=== PATIENT | female | born 1985 | race Caucasian/White ===

== ENCOUNTER → 2018-08-02 | Outpatient (CLI) | payer BC, SELFPAY ==
[2018-08-01 16:14] VITALS: BMI 28.0
== END | disposition home or self-care (01) ==
LOC: LABSPEC 08:35
PROVIDERS: Referring Provider Obstetrics & Gynecology; Visit Provider Obstetrics & Gynecology
DX: Z12.4 Encounter for screening for malignant neoplasm of cervix (principal)
CPT/HCPCS: 87624; 88175; G0145

== ENCOUNTER → 2018-10-19 08:53 | Outpatient (CLI) | payer BC, SELFPAY ==
[2018-10-19 08:06] VITALS: BMI 28.0
[2018-10-19 09:47] LABS: Absolute Lymphocyte Count 0.67 X10^3/uL (0.83-4.51); Absolute Neutrophil Count 7.1 X10^3/uL (2.0-7.7); Basophil# 0.02 X10^3/uL; Basophil% 0.2 % (0-1); Eosinophil# 0.07 X10^3/uL; Eosinophils% 0.8 % (0-5); Hemoglobin 10.8 g/dL (12.0-15.0); Lymphocyte # 0.67 X10^3/ul (4.0); Mean Corp Hgb Conc 33.8 g/dL (32-36); Mean Corpuscular Hgb 32.3 pg (27.0-32.0); Mean Corpuscular Volume 95.8 fL (81-99); Mean Platelet Vol. 10.3 fl (6.2-12.0); Monocyte# 0.39 X10^3/uL; Monocyte% 4.7 % (0-10); NRBC Flagged by Analyzer 0 % (0-5); Neutrophil # 7.11 X10^3/uL (2.7-7.7); Neutrophil % 85.3 % (47-70); Platelet Count 233 K/mm3 (150-450); RBC Distribution Width CV 13.5 % (11.6-14.6); RBC Distribution Width SD 47.3 fl (35.1-43.9); Red Blood Count 3.34 M/mm3 (4.2-5.4); White Blood Count 8.3 K/mm3 (4.4-11.0)
[2018-10-19 09:59] LABS: Glucose Challenge Gest 1H 50g 109 mg/dL (70-140)
== END ==
PROVIDERS: Referring Provider Obstetrics & Gynecology; Visit Provider Obstetrics & Gynecology
DX: Z34.90 Encounter for supervision of normal pregnancy, unspecified, unspecified trimester (principal)
CPT/HCPCS: 36415; 82950; 85025

== ENCOUNTER → 2018-11-16 09:01 | Outpatient (CLI) | payer BC, SELFPAY ==
[2018-11-16 08:57] VITALS: BMI 28.0
[2018-11-16 09:20] LABS: Absolute Neutrophil Count 6.4 X10^3/uL (2.0-7.7); Basophil# 0.01 X10^3/uL; Basophil% 0.1 % (0-1); Eosinophil# 0.06 X10^3/uL; Eosinophils% 0.8 % (0-5); Hematocrit 30.7 % (37-47); Hemoglobin 10.1 g/dL (12.0-15.0); Mean Corp Hgb Conc 32.9 g/dL (32-36); Mean Corpuscular Hgb 31.4 pg (27.0-32.0); Mean Corpuscular Volume 95.3 fL (81-99); Mean Platelet Vol. 9.9 fl (6.2-12.0); Monocyte# 0.41 X10^3/uL; Monocyte% 5.3 % (0-10); NRBC Flagged by Analyzer 0 % (0-5); Neutrophil # 6.43 X10^3/uL (2.7-7.7); Neutrophil % 82.9 % (47-70); Platelet Count 207 K/mm3 (150-450); RBC Distribution Width CV 14.1 % (11.6-14.6); RBC Distribution Width SD 48.4 fl (35.1-43.9); Red Blood Count 3.22 M/mm3 (4.2-5.4); White Blood Count 7.8 K/mm3 (4.4-11.0)
[2018-11-16 09:46] LABS: T4 Free Direct 0.83 ng/dL (0.76-1.46); Thyroid Stim Hormone (TSH) 1.46 uIU/mL (0.358-3.74)
== END ==
PROVIDERS: Referring Provider Obstetrics & Gynecology; Visit Provider Obstetrics & Gynecology
DX: O99.019 Anemia complicating pregnancy, unspecified trimester (principal); E01.0 Iodine-deficiency related diffuse (endemic) goiter; D64.9 Anemia, unspecified; Z3A.00 Weeks of gestation of pregnancy not specified
CPT/HCPCS: 36415; 84439; 84443; 85025

== ENCOUNTER → 2018-11-21 14:31 | Outpatient (CLI) | payer BC, SELFPAY ==
[2018-11-16 08:57] VITALS: BMI 28.0
--- NOTE | 2018-11-21 14:34 | US_ITS ---
STUDY: THYROID ULTRASOUND REASON FOR EXAM: Female, 33 years old. Thyromegaly TECHNIQUE: Ultrasound evaluation of the thyroid was performed with real-time and static alanis-scale imaging. COMPARISON: None. FINDINGS: RIGHT LOBE: The right lobe of the thyroid gland measures 4.8 x 1.9 x 1.7 cm. There is a homogeneous echotexture. There are no demonstrated solid, cystic or complex lesions. LEFT LOBE: The left lobe of the thyroid gland measures 5.1 x 1.9 x 1.7 cm. There is a homogeneous echotexture. There are no demonstrated solid, cystic or complex lesions. ISTHMUS: The isthmus measures 2 mm. The regional lymph nodes are normal. US/Thyroid IMPRESSION: Normal ultrasound examination of the thyroid. Electronically Signed: Zachariah Worthy MD at 19:49 EDT , Service support ,
== END ==
PROVIDERS: Referring Provider Obstetrics & Gynecology; Visit Provider Obstetrics & Gynecology
DX: E01.0 Iodine-deficiency related diffuse (endemic) goiter (principal)
CPT/HCPCS: 76536

== ENCOUNTER → 2018-12-28 15:25 | Outpatient (CLI) | payer BC, SELFPAY ==
[2018-12-28 15:11] VITALS: BMI 28.0
[2018-12-28 15:52] LABS: ROM Internal Control Test YES-OK TO RESULT pt. (Internal QC); ROM Patient Test Negative (Negative)
== END ==
PROVIDERS: Visit Provider Nurse Practitioner Women's Health
DX: N89.8 Other specified noninflammatory disorders of vagina (principal)
CPT/HCPCS: 84112

== ENCOUNTER → 2018-12-28 16:50 | Outpatient (CLI) | payer BC, SELFPAY ==
[2018-12-28 15:11] VITALS: BMI 28.0
== END ==
PROVIDERS: Referring Provider Nurse Practitioner Women's Health; Visit Provider Nurse Practitioner Women's Health
DX: Z34.93 Encounter for supervision of normal pregnancy, unspecified, third trimester (principal); N89.8 Other specified noninflammatory disorders of vagina; Z3A.36 36 weeks gestation of pregnancy
CPT/HCPCS: 84112; 87081

== ENCOUNTER → 2019-01-04 15:59 | Outpatient (CLI) | payer BC, SELFPAY ==
[2019-01-04 15:36] VITALS: BMI 28.0
[2019-01-04 17:03] LABS: Absolute Lymphocyte Count 0.86 X10^3/uL (0.83-4.51); Absolute Neutrophil Count 7.1 X10^3/uL (2.0-7.7); Basophil# 0.01 X10^3/uL; Basophil% 0.1 % (0-1); Eosinophil# 0.06 X10^3/uL; Eosinophils% 0.7 % (0-5); Hematocrit 33.7 % (37-47); Hemoglobin 11.1 g/dL (12.0-15.0); Lymphocyte # 0.86 X10^3/ul (4.0); Lymphocyte % 9.8 % (19-41); Mean Corp Hgb Conc 32.9 g/dL (32-36); Mean Corpuscular Hgb 30.9 pg (27.0-32.0); Mean Corpuscular Volume 93.9 fL (81-99); Mean Platelet Vol. 10.7 fl (6.2-12.0); Monocyte# 0.63 X10^3/uL; Monocyte% 7.2 % (0-10); NRBC Flagged by Analyzer 0 % (0-5); Neutrophil # 7.07 X10^3/uL (2.7-7.7); Neutrophil % 80.7 % (47-70); Platelet Count 242 K/mm3 (150-450); RBC Distribution Width CV 15.3 % (11.6-14.6); Red Blood Count 3.59 M/mm3 (4.2-5.4); White Blood Count 8.8 K/mm3 (4.4-11.0)
== END ==
PROVIDERS: Referring Provider Obstetrics & Gynecology; Visit Provider Obstetrics & Gynecology
DX: O99.019 Anemia complicating pregnancy, unspecified trimester (principal); D64.9 Anemia, unspecified; Z3A.00 Weeks of gestation of pregnancy not specified
CPT/HCPCS: 36415; 85025

== ENCOUNTER 2019-01-18 18:20 | Inpatient (IN) | payer BC, SELFPAY ==
[2018-11-16 08:57] VITALS: BMI 28.0
[2019-01-18 14:55] VITALS: BMI 28.0
[2019-01-18 18:54] VITALS: BMI 36.1
[2019-01-18] MEDS: Lactated Ringers 1,000 ML 50 ML IV (19:15)
[2019-01-18 19:39] LABS: Absolute Lymphocyte Count 0.87 X10^3/uL (0.83-4.51); Absolute Neutrophil Count 7.5 X10^3/uL (2.0-7.7); Basophil# 0.03 X10^3/uL; Basophil% 0.3 % (0-1); Eosinophils% 1.1 % (0-5); Hematocrit 35.4 % (37-47); Lymphocyte # 0.87 X10^3/ul (4.0); Lymphocyte % 9.5 % (19-41); Mean Corp Hgb Conc 33.9 g/dL (32-36); Mean Corpuscular Hgb 31.5 pg (27.0-32.0); Mean Corpuscular Volume 92.9 fL (81-99); Mean Platelet Vol. 10.7 fl (6.2-12.0); Monocyte# 0.54 X10^3/uL; Monocyte% 5.9 % (0-10); NRBC Flagged by Analyzer 0.2 % (0-5); Neutrophil # 7.54 X10^3/uL (2.7-7.7); Neutrophil % 81.9 % (47-70); Platelet Count 219 K/mm3 (150-450); RBC Distribution Width SD 51.6 fl (35.1-43.9); Red Blood Count 3.81 M/mm3 (4.2-5.4); White Blood Count 9.2 K/mm3 (4.4-11.0)
[2019-01-18] MEDS: Mag Hydrox/Al Hydrox/Simeth 30 ML UDC PO (20:15)
[2019-01-18] MEDS: Lactated Ringers 500 ML 999 ML IV (20:15)
--- NOTE | 2019-01-18 20:58 | HP.PCM_ITS ---
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 anatomy us reviewed. echo- nl (8) Supervision of normal Status: Acute Qualifiers: Normal : normal first Trimester: second trimester Qualified Code(s): Z34.02 - Encounter for supervision of normal first , second trimester Comment: PRR CONSUELO 01/22/19 girl (name secret) Duong History Date of Admission: 01/19/19 Final CONSUELO: 01/20/19 Gestational age: 39 Weeks and 6 Days History of this : This is a 33 year-old, at 39 weeks gestational age sent in active labor at 45 cm. Patient has had an a complicated by shortened cervical length but has had no labor.. Surgical History: Surgical History (Last Reviewed 01/18/19 @ 14:55 by Elba Rincon) D&E H/O LEEP Z98.890 H/O dilation and curettage Z98.890 x1 H/O toe surgery Z98.890 History of wisdom tooth extraction, class II edentulism K08.492 Allergies doxycycline Allergy (Mild, Verified 01/18/19 14:54) Other Home Medications: Home Medications vitamin#30 30 mg iron-10 mg iron-folic acid 1 mg-omg3 capsule 1 cap PO DAILY cap 08/01/18 ferrous sulfate 325 mg (65 mg iron) tablet 325 mg PO BID 11/30/18 Smoking Status: Former smoker Alcohol: None Number of Fetus(es): 1 NST - FHR Rate Baby A Baseline: 130 Variability:: Moderate Accelerations:: 15 x 15 Decelerations:: None NST Reactive:: Yes FHR Category:: Category I Uterine Activity:: q 2-4 History Past Pregnancies: Past Pregnancies trisomy 18 medical termination sab x 2 Labs: Mom's Labs & Results 01/18/19 01/18/19 19:20 19:20 WBC 9.2 RBC 3.81 L Hgb 12.0 Hct 35.4 L MCV 92.9 MCH 31.5 MCHC 33.9 RDW Std Deviation 51.6 H RDW Coeff of Nishant 15.0 H Plt Count 219 MPV 10.7 Immature Gran % (Auto) 1.300 H Neut % (Auto) 81.9 H Lymph % (Auto) 9.5 L [place] % (Auto) 5.9 Eos % (Auto) 1.1 Baso % (Auto) 0.3 Absolute Neuts (auto) 7.5 Absolute Lymphs (auto) 0.87 Nucleated RBC % 0.2 Blood Type AB POSITIVE Antibody Screen NEGATIVE Course Did the patient receive Yes care? Labs Blood Type: AB RH: POSITIVE RPR/VDRL/Syphilis Nonreactive Rubella status Immune HbSAg Negative Date Done: 06/29/18 Chlamydia Negative Gonorrhea Negative HIV/AIDS Non-Reactive Group B Strep: Negative Current Obstetrical History Gestational Diabetes No Incompetent Cervix No: shortened cervix Infertility Yes IUGR No Macrosomia No Hypertension/Pre-eclampsia No Placenta Previa/Abruption No PTL/PROM No Uterine anomaly No Oligohydramnios No Polyhydramnios No Multiple gestation No Past Medical History Asthma No Diabetes No Hypertension No Heart disease No Mitral valve prolapse No Neurologic/Seizure disorder/ No Migraines Kidney disease No Liver disease No Varicosities No Clotting disorders/Hx of DVT No Thyroid Dysfunction No Other medical diseases No Psychiatric disorders No Major trauma No Abnormal PAP smear Yes Sleep apnea No Mammogram in the last 2 years Yes Social History Marital Status: Alleged father Kiel Hx Smoking No Smoking Status Former smoker Expected Delivery Method: Spontaneous Vaginal Review of Systems Constitutional: Denies: Fever, Malaise Eyes: Denies: Blurred vision, Vision Change HEENT: Denies: Head Aches, Visual Changes Cardiovascular: Denies: Chest Pain, Palpitations Respiratory: Denies: Cough, Shortness of Breath, Wheezing Gastrointestinal: Denies: Abdominal Pain, Diarrhea, Nausea, Vomiting Genitourinary: Denies: Dysuria, Hematuria Musculoskeletal: Denies: Joint Pain, Muscle pain Skin: Denies: Lesions, Rash Neurological: Denies: Blurred vision, Focal weakness, Headaches Psychiatric: Denies: Anxiety, Depression Endocrine: Denies: Heat/ Cold Intolerance Hematologic/ Lymphatic: Denies: Easy Bruising, Easy Bleeding Physical Exam General: Alert, Cooperative, No apparent distress HEENT: Atraumatic, Normocephalic. Negative for: Thyromegaly, Lymphadenopathy Cardiovascular: Regular rate Lungs: Normal air movement Abdomen: Soft, Non Tender, Gravid Neurological: Deep Tendon Reflexes 2+/4 and Symmetrical, Neuro grossly intact. Negative for: Clonus CAFETERIA MONITOR: Normal external genitalia. 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 epidural prn gbs neg IAL
[2019-01-18] MEDS: fentaNYL-bupivacaine (epidural) 100 ML BAG EPIDURAL (21:25)
[2019-01-19] MEDS: Mag Hydrox/Al Hydrox/Simeth 30 ML UDC PO (00:45)
[2019-01-19] MEDS: Lactated Ringers 1,000 ML 200 ML IV (01:20)
[2019-01-19] MEDS: Oxytocin 30 units/NS 500 ml 30 UNITS/500 ML IV.SOLN 334 UNITS IV (02:39)
--- NOTE | 2019-01-19 03:04 | OP.PCM_ITS ---
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 anatomy us reviewed. echo- nl (8) Supervision of normal Status: Acute Qualifiers: Normal : normal first Trimester: second trimester Qualified Code(s): Z34.02 - Encounter for supervision of normal first , second trimester Comment: PRR CONSUELO 01/22/19 girl (name secret) Duong Vaginal Delivery Maternal Presentation: Active Labor ial 39w6d Method of Induction: Pitocin Amniotic Membrane Rupture Type: Artificial Amniotic Fluid Description: Clear Final CONSUELO: 01/20/19 Gestational age: 39 Weeks and 6 Days Date of Procedure: 01/19/19 Pre-Operative Diagnosis: ial Post-Operative Diagnosis: same Surgery/ Procedure Performed: Spontaneous Vaginal Delivery Type of Anesthesia: Epidural Description of Procedure: Patient began pushing and delivered the head in the AFUA presentation. The head was delivered atraumatically and a loose nuchal cord ?1 was identified and easily reduced over the 's head. The anterior and posterior shoulders delivered without complication followed by the rest of the and the was placed on the maternal abdomen. Delayed cord clamping was employed for approximately 60 seconds. Cord was clamped and cut and gentle traction was applied to the cord and the placenta delivered spontaneously immediately following it was noted to be intact with three-vessel cord. The perineum and vagina were inspected and noted to have a second-degree perineal laceration that was repaired in the usual fashion with 3-0 Vicryl Rapide. EBL was 300 cc. Patient and tolerated delivery well. Presentation: AFUA Placental Delivery Description: Spontaneous Nuchal Cord Compression: With compression Cord Entanglement: Around neck x 1, loose Drain: Nixon to straight drain Estimated Blood Loss: 300 Infant A gender: Female Episiotomy Description: None Laceration: Perineal Extension/lac, 2nd degree Medications given after delivery: IV Pitocin Complications: None Multi Select Codes - Urinary/Genital Urinary/Genital CPT Codes: 75821 Vaginal Delivery [facility]
--- NOTE | 2019-01-19 03:40 | DCINST_ITS ---
Discharge Diet: No Restrictions Discharge Activity: Return to Normal Activity, May not drive while taking narcotic pain medications., May Shower May resume sexual activity in: 4-6 weeks Call your doctor if your incision/area has: Continuous Slow Oozing, Sudden Increased Bleeding, Increased Pain/ Swelling, Increased Redness, Foul Smelling Discharge Additional Instructions: If you experience any of the following, contact your healthcare provider. * Bleeding that soaks a pad every hour for 2 hours * Fever 100.4 or higher * Unrelieved incision or abdominal pain * Swelling, redness, discharge or bleeding from your incision or episiotomy site * Your incision begins to separate * Problems urinating (including inability to urinate or burning while urinating). * Visual changes * Severe headache * Flu-like symptoms * Pain or redness in one of both of your breasts * Pain, warmth, tenderness or swelling in your legs, especially the calf area * Frequent nausea and vomiting * Symptoms of depression or anxiety If you experience any of the following, call 911 or go to the nearest Emergency Room. * Chest pain * Problems breathing * Seizure activity * Partial or complete paralysis of a body part, slurred speech, weakness or drooping of the face, or a sudden inability to walk or hold your balance Allergies/Adverse Reactions: Allergies doxycycline Allergy (Mild, Verified 01/18/19 14:54) Other Medications to take at Discharge vitamin#30 30 mg iron-10 mg iron-folic acid 1 mg-omg3 capsule 1 cap PO DAILY cap 08/01/18 ferrous sulfate 325 mg (65 mg iron) tablet 325 mg PO BID 11/30/18 Please Follow Up With: Delores García MD - [phone] When: Call to make an appointment with your doctor in 6 weeks. If you had elevated Blood pressure or 4th degree laceration you will need to be seen in 2 weeks. Primary Care Physician: Care Physician,No Primary [Primary Care Provider] - Test Results: Test results from this visit will be discussed in further detail at your follow- up appointment, if applicable.
--- NOTE | 2019-01-19 03:40 | PCM.DCVAG ---
Discharge Diet: No Restrictions Discharge Activity: Return to Normal Activity, May not drive while taking narcotic pain medications., May Shower May resume sexual activity in: 4-6 weeks Call your doctor if your incision/area has: Continuous Slow Oozing, Sudden Increased Bleeding, Increased Pain/ Swelling, Increased Redness, Foul Smelling Discharge Additional Instructions: If you experience any of the following, contact your healthcare provider. Bleeding that soaks a pad every hour for 2 hours Fever 100.4 or higher Unrelieved incision or abdominal pain Swelling, redness, discharge or bleeding from your incision or episiotomy site Your incision begins to separate Problems urinating (including inability to urinate or burning while urinating). Visual changes Severe headache Flu-like symptoms Pain or redness in one of both of your breasts Pain, warmth, tenderness or swelling in your legs, especially the calf area Frequent nausea and vomiting Symptoms of depression or anxiety If you experience any of the following, call 911 or go to the nearest Emergency Room. Chest pain Problems breathing Seizure activity Partial or complete paralysis of a body part, slurred speech, weakness or drooping of the face, or a sudden inability to walk or hold your balance Allergies/Adverse Reactions: Allergies doxycycline Allergy (Mild, Verified 01/18/19 14:54) Other Medications to take at Discharge vitamin#30 30 mg iron-10 mg iron-folic acid 1 mg-omg3 capsule 1 cap PO DAILY cap 08/01/18 ferrous sulfate 325 mg (65 mg iron) tablet 325 mg PO BID 11/30/18 Please Follow Up With: eDlores García MD - [phone] When: Call to make an appointment with your doctor in 6 weeks. If you had elevated Blood pressure or 4th degree laceration you will need to be seen in 2 weeks. Primary Care Physician: Care Physician,No Primary [Primary Care Provider] - Test Results: Test results from this visit will be discussed in further detail at your follow-up appointment, if applicable.
[2019-01-19] MEDS: Naproxen 250 MG Tablet 500 MG PO ×2 (05:20→15:09)
[2019-01-19 10:00] VITALS: BP 136/76; PULSE 105; RESP 16; TEMP 36.8
[2019-01-19 14:00] VITALS: BP 121/75; PULSE 103; RESP 12; TEMP 36.5
[2019-01-19] MEDS: Prenatal Vits Tablet 1 TABLET PO (15:09)
[2019-01-19] MEDS: Dibucaine 30 GM Tube 1 APPLIC TOPICAL (15:23)
[2019-01-19] MEDS: Hydrocortisone 2.5% Crm 1 APPLIC TOPICAL (15:25)
[2019-01-19 18:07] VITALS: BP 113/79; PULSE 100; RESP 16; TEMP 36.8
[2019-01-19 20:00] VITALS: BP 113/59; PULSE 107; RESP 18; TEMP 36.7
[2019-01-19] MEDS: Acetaminophen 500 MG Tablet 1000 MG PO (20:55)
[2019-01-20] VITALS: BP 104/59; PULSE 91; RESP 18; TEMP 36.7
[2019-01-20 04:00] VITALS: BP 117/66; PULSE 109; RESP 16; TEMP 36.3
[2019-01-20] MEDS: Naproxen 250 MG Tablet 500 MG PO ×2 (07:42→18:42)
[2019-01-20 07:45] VITALS: BP 112/63; PULSE 78; RESP 16; TEMP 36.6
--- NOTE | 2019-01-20 12:02 | PCM.PN.OB ---
Subjective: doing well no complaints pain controlled no CP SOB N V ambulating well tolerating po lochia moderate, going well - Physical Exam Vitals/I&O's: Vital Signs Temp Pulse Resp BP 97.9 F 78 16 112/63 01/20/19 07:45 01/20/19 07:45 01/20/19 07:45 01/20/19 07:45 Oxygen Delivery Method Room Air Weight: 204 lb Body Mass Index (BMI) 36.1 Intake and Output for Last 24 Hours 01/18/19 01/19/19 01/20/19 23:59 23:59 23:59 Intake Total 549.5 / 549.5 1683.34 / 1683.34 Output Total 300 / 300 1250 / 1250 Balance 249.5 / 249.5 433.34 / 433.34 General: Alert, Oriented x3 Current Medications Acetaminophen (Tylenol) 1,000 mg PO Q8H PRN PRN PRN Reason: Pain Score 1-3/10 Last Admin: 01/19/19 20:55 Dose: 1,000 mg Documented by: Bisacodyl (Dulcolax) 10 mg RECTAL UD PRN PRN Reason: If no BM Dibucaine (Dibucaine) 1 applic TOPICAL TID PRN PRN; Protocol PRN Reason: Discomfort Last Admin: 01/19/19 15:23 Dose: 1 applicatio Documented by: Ferrous Sulfate (Ferrous Sulfate) 325 mg PO BIDCM MARGARET Last Admin: 01/19/19 19:02 Dose: Not Given Documented by: Hydrocortisone (Hytone) 1 applic TOPICAL TID PRN PRN; Protocol PRN Reason: Discomfort Last Admin: 01/19/19 15:25 Dose: 1 applicatio Documented by: Methylergonovine Maleate (Methergine) 0.2 mg IM X1 PRN PRN Reason: Excess bleeding/uterine atony Naproxen (Naprosyn) 500 mg PO Q8H PRN PRN PRN Reason: Pain Score 1-3/10 Last Admin: 01/20/19 07:42 Dose: 500 mg Documented by: Ondansetron HCl (Zofran) 4 mg IV Q4H PRN PRN PRN Reason: Nausea Oxycodone HCl (Oxyir) 5 - 10 mg PO Q4H PRN PRN PRN Reason: Pain Score 4-10/10 Multivit/Folic Acid/Iron (Prenatabs Fa) 1 tablet PO DAILY@1200 MARGARET Last Admin: 01/19/19 15:09 Dose: 1 tablet Documented by: Senna/Docusate Sodium (Senokot-S, Coco-Colace) 1 - 2 tablet PO DAILY PRN PRN PRN Reason: Constipation Simethicone (Mylicon) 80 mg PO PCHS PRN PRN Reason: Indigestion/Stomach pain Sodium Chloride () 5 - 15 ml IV UD PRN PRN Reason: SALINE FLUSH Medical Necessity - Tobacco Use Smoking Status: Former smoker Assessment/Plan All Active Problems (Last Reviewed 01/18/19 @ 14:55 by Elba Rincon) Thyromegaly (Acute) Influenza vaccination given (Acute) Anemia during (Acute) Cervical shortening affecting (Acute) 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 routine post delivery care 2. breast feeding- support given 3. rh positive 4. rubella immune
[2019-01-20] MEDS: Prenatal Vits Tablet 1 TABLET PO (12:43)
[2019-01-20 14:00] VITALS: PULSE 87; RESP 16; TEMP 36.7
[2019-01-20 20:29] VITALS: BP 108/56; PULSE 99; RESP 18; TEMP 36.4
[2019-01-21 01:30] VITALS: BP 121/63; PULSE 97; RESP 16; TEMP 36.6
[2019-01-21 08:28] VITALS: BP 110/65; PULSE 93; RESP 16; TEMP 36.5; O2SAT 99
--- NOTE | 2019-01-21 10:26 | PCM.PN.OB ---
Subjective: doing well no complaints pain controlled no CP SOB N V ambulating well tolerating po lochia moderate, going well - Physical Exam Vitals/I&O's: Vital Signs Temp Pulse Resp BP Pulse Ox 97.7 F L 93 16 110/65 99 01/21/19 08:28 01/21/19 08:28 01/21/19 08:28 01/21/19 08:28 01/21/19 08:28 Oxygen Delivery Method Room Air Weight: 204 lb Body Mass Index (BMI) 36.1 Intake and Output for Last 24 Hours 01/19/19 01/20/19 01/21/19 23:59 23:59 23:59 Intake Total 1683.34 / 1683.34 Output Total 1250 / 1250 Balance 433.34 / 433.34 General: Alert, Oriented x3 Current Medications Acetaminophen (Tylenol) 1,000 mg PO Q8H PRN PRN PRN Reason: Pain Score 1-3/10 Last Admin: 01/19/19 20:55 Dose: 1,000 mg Documented by: Bisacodyl (Dulcolax) 10 mg RECTAL UD PRN PRN Reason: If no BM Dibucaine (Dibucaine) 1 applic TOPICAL TID PRN PRN; Protocol PRN Reason: Discomfort Last Admin: 01/19/19 15:23 Dose: 1 applicatio Documented by: Ferrous Sulfate (Ferrous Sulfate) 325 mg PO BIDCM MARGARET Last Admin: 01/20/19 18:42 Dose: Not Given Documented by: Hydrocortisone (Hytone) 1 applic TOPICAL TID PRN PRN; Protocol PRN Reason: Discomfort Last Admin: 01/19/19 15:25 Dose: 1 applicatio Documented by: Methylergonovine Maleate (Methergine) 0.2 mg IM X1 PRN PRN Reason: Excess bleeding/uterine atony Naproxen (Naprosyn) 500 mg PO Q8H PRN PRN PRN Reason: Pain Score 1-3/10 Last Admin: 01/20/19 18:42 Dose: 500 mg Documented by: Ondansetron HCl (Zofran) 4 mg IV Q4H PRN PRN PRN Reason: Nausea Oxycodone HCl (Oxyir) 5 - 10 mg PO Q4H PRN PRN PRN Reason: Pain Score 4-10/10 Multivit/Folic Acid/Iron (Prenatabs Fa) 1 tablet PO DAILY@1200 MARGARET Last Admin: 01/20/19 12:43 Dose: 1 tablet Documented by: Senna/Docusate Sodium (Senokot-S, Coco-Colace) 1 - 2 tablet PO DAILY PRN PRN PRN Reason: Constipation Simethicone (Mylicon) 80 mg PO PCHS PRN PRN Reason: Indigestion/Stomach pain Sodium Chloride () 5 - 15 ml IV UD PRN PRN Reason: SALINE FLUSH Medical Necessity - Tobacco Use Smoking Status: Former smoker Assessment/Plan All Active Problems (Last Reviewed 01/18/19 @ 14:55 by Elba Rincon) Thyromegaly (Acute) Influenza vaccination given (Acute) Anemia during (Acute) Cervical shortening affecting (Acute) 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 routine post delivery care 2. breast feeding- support given 3. rh positive 4. rubella immune
== END 2019-01-21 11:50 | disposition home or self-care (01) | DRG 807 ==
PROVIDERS: Admitting Provider Obstetrics & Gynecology; Referring Provider Obstetrics & Gynecology; Visit Provider Obstetrics & Gynecology
DX: O26.873 Cervical shortening, third trimester (principal); O70.1 Second degree perineal laceration during delivery; O99.02 Anemia complicating childbirth; D64.9 Anemia, unspecified; O69.81X0 Labor and delivery complicated by cord around neck, without compression, not applicable or unspecified; Z87.891 Personal history of nicotine dependence; Z3A.39 39 weeks gestation of pregnancy; Z37.0 Single live birth
CPT/HCPCS: 59025; 59050; 85025; 86850; 86900; 86901; 99218; J7120; G0378

== ENCOUNTER → 2019-02-26 12:42 | Outpatient (CLI) | payer BC, SELFPAY ==
[2019-02-26 12:34] VITALS: BMI 36.1
[2019-02-26 13:26] LABS: T4 Free Direct 0.87 ng/dL (0.76-1.46); Thyroid Stim Hormone (TSH) 1.36 uIU/mL (0.358-3.74)
== END ==
PROVIDERS: Referring Provider Obstetrics & Gynecology; Visit Provider Obstetrics & Gynecology
DX: O99.019 Anemia complicating pregnancy, unspecified trimester (principal); D64.9 Anemia, unspecified; O99.280 Endocrine, nutritional and metabolic diseases complicating pregnancy, unspecified trimester; E01.0 Iodine-deficiency related diffuse (endemic) goiter; Z3A.00 Weeks of gestation of pregnancy not specified
CPT/HCPCS: 36415; 84439; 84443

== ENCOUNTER → 2020-03-05 15:23 | Outpatient (CLI) | payer OTHER, SELFPAY ==
[2020-03-05 14:56] VITALS: BMI 30.4
[2020-03-05 16:36] LABS: T4 Free Direct 0.99 ng/dL (0.76-1.46); Thyroid Stim Hormone (TSH) 1.79 uIU/mL (0.358-3.74)
[2020-03-11 15:33] LABS: HPV APTIMA, High Risk Negative (Negative)
== END ==
PROVIDERS: Referring Provider Nurse Practitioner Women's Health; Visit Provider Nurse Practitioner Women's Health
DX: Z12.4 Encounter for screening for malignant neoplasm of cervix (principal); E01.0 Iodine-deficiency related diffuse (endemic) goiter; Z13.29 Encounter for screening for other suspected endocrine disorder
CPT/HCPCS: 36415; 84439; 84443; 87624; 88175; G0145

== ENCOUNTER → 2020-03-13 09:20 | Outpatient (CLI) | payer OTHER, SELFPAY ==
[2020-03-05 14:56] VITALS: BMI 30.4
--- NOTE | 2020-03-13 09:22 | US_ITS ---
STUDY: THYROID ULTRASOUND REASON FOR EXAM: Female, 34 years old. ENLARGED THYROID TECHNIQUE: Ultrasound evaluation of the thyroid was performed with real-time and static alanis-scale imaging. COMPARISON: None. FINDINGS: RIGHT LOBE: The right lobe of the thyroid gland measures 4.7 cm x 1.4 cm x 1.7 cm. There is a homogeneous echotexture. There are no demonstrated solid, cystic or complex lesions. LEFT LOBE: The left lobe of the thyroid gland is slightly enlarged and measures 5.4 cm x 1.9 cm x 1.4 cm. There is a homogeneous echotexture. There is a 3 mm x 3 mm x 3 mm hypoechoic well-defined solid nodule in the midpole of the left lobe. ISTHMUS: The isthmus measures 1.2 mm. The regional lymph nodes are normal. US/Thyroid IMPRESSION: 3 mm x 3 mm x 3 mm hypoechoic solid nodule in the midpole of the left lobe. Mild enlargement of the left lobe of the thyroid. Electronically Signed: Josias Gutierrez MD at 11:16 EST , Service support ,
[2020-03-13 10:50] LABS: Absolute Lymphocyte Count 0.76 X10^3/uL (0.83-4.51); Absolute Neutrophil Count 2.8 X10^3/uL (2.0-7.7); Basophil# 0.05 X10^3/uL; Basophil% 1.3 % (0-1); Eosinophil# 0.07 X10^3/uL; Eosinophils% 1.8 % (0-5); Hematocrit 41.9 % (37-47); Hemoglobin 13.8 g/dL (12.0-15.0); Lymphocyte # 0.76 X10^3/ul (4.0); Lymphocyte % 19.2 % (19-41); Mean Corp Hgb Conc 32.9 g/dL (32-36); Mean Corpuscular Hgb 31.2 pg (27.0-32.0); Mean Corpuscular Volume 94.8 fL (81-99); Mean Platelet Vol. 10.7 fl (6.2-12.0); Monocyte# 0.25 X10^3/uL; Monocyte% 6.3 % (0-10); NRBC Flagged by Analyzer 0 % (0-5); Neutrophil # 2.81 X10^3/uL (2.7-7.7); Neutrophil % 71.1 % (47-70); Platelet Count 283 K/mm3 (150-450); RBC Distribution Width SD 45.6 fl (35.1-43.9); Red Blood Count 4.42 M/mm3 (4.2-5.4)
[2020-03-13 11:20] LABS: Cholesterol 250 mg/dL (200); Glucose 90 mg/dL (74-106); High Density Lipoprotein 65 mg/dL; Triglycerides 76 mg/dL; Very Low Density Lipoprotein 15 mg/dL (5-40); Vitamin D,25 Hydroxy 11.6 ng/mL
== END ==
PROVIDERS: Referring Provider Nurse Practitioner Women's Health; Visit Provider Nurse Practitioner Women's Health
DX: Z00.00 Encounter for general adult medical examination without abnormal findings (principal); E01.0 Iodine-deficiency related diffuse (endemic) goiter; Z13.1 Encounter for screening for diabetes mellitus; Z13.220 Encounter for screening for lipoid disorders; Z13.21 Encounter for screening for nutritional disorder
CPT/HCPCS: 36415; 76536; 80061; 82306; 82947; 85025

== ENCOUNTER → 2020-04-02 15:43 | Outpatient (CLI) | payer OTHER, SELFPAY ==
[2020-04-02 15:14] VITALS: BMI 30.2
[2020-04-02 17:14] LABS: ALB/GLOB Ratio 1.1 RATIO (0.9-2.4); AST(SGOT) 21 U/L (15-37); Alanine Aminotransfer ALT/SGPT 45 U/L (13-56); Albumin, Serum 4.2 g/dL (3.2-5.0); Alkaline Phosphatase 87 U/L (45-117); Anion Gap 5 (5-15); BUN 15 mg/dL (7-18); BUN/Creat Ratio 16.9 RATIO (10-20); Calcium,Total 9.5 mg/dL (8.5-10.1); Chloride 105 mmol/L (98-107); Creatinine, Serum 0.89 mg/dL (0.55-1.02); EST Glomerular Filtration Rate 77 mL/min (>60); Est Glom Filt Rate - Afr Amer 94 mL/min (>60); Globulin 3.7 g/dL (2.2-4.2); Glucose 91 mg/dL (74-106); Potassium 3.9 mmol/L (3.5-5.1); Protein, Total 7.9 g/dL (6.4-8.2); Sodium Level 139 mmol/L (136-145)
== END ==
PROVIDERS: PCP Internal Medicine; Referring Provider Internal Medicine; Visit Provider Internal Medicine
DX: E78.5 Hyperlipidemia, unspecified (principal)
CPT/HCPCS: 36415; 80053

== ENCOUNTER → 2020-07-02 14:59 | Outpatient (CLI) | payer OTHER, SELFPAY ==
[2020-07-02 14:26] VITALS: BMI 30.6
[2020-07-02 16:59] LABS: Cholesterol 262 mg/dL (200); High Density Lipoprotein 72 mg/dL; Triglycerides 69 mg/dL; Very Low Density Lipoprotein 14 mg/dL (5-40)
== END ==
PROVIDERS: PCP Internal Medicine; Referring Provider Internal Medicine; Visit Provider Internal Medicine
DX: E78.5 Hyperlipidemia, unspecified (principal)
CPT/HCPCS: 36415; 80061

== ENCOUNTER → 2020-07-14 09:12 | Outpatient (CLI) | payer OTHER, SELFPAY ==
[2020-07-02 14:26] VITALS: BMI 30.6
--- NOTE | 2020-07-14 09:55 | US_ITS ---
STUDY: ULTRASOUND BREAST - RIGHT REASON FOR EXAM: Female, 34 years old. Periareolar discoloration. TECHNIQUE: Axial and longitudinal images of the RIGHT breast were performed with a high resolution ultrasound transducer. # OF IMAGES: 76 COMPARISON: None. FINDINGS: RIGHT Breast: The periareolar region of the right breast was examined by ultrasound. No sonographic abnormality is seen. IMPRESSION: No sonographic abnormality is seen. ASSESSMENT CATEGORY: BIRADS Category 1: Negative. A letter regarding these results will be sent to the patient by the facility within 30 days. Electronically Signed: Josias Gutierrez MD at 13:11 EDT , Service support , STUDY: ULTRASOUND BREAST - LEFT REASON FOR EXAM: Female, 34 years old. Pain in the left breast. TECHNIQUE: Axial and longitudinal images of the LEFT breast were performed with a high resolution ultrasound transducer. # OF IMAGES: 76 COMPARISON: None. FINDINGS: LEFT Breast: The upper outer quadrant of the left breast was examined by ultrasound. No sonographic abnormality is seen. US/Breast Limited Unilateral IMPRESSION: No sonographic abnormality is seen. ASSESSMENT CATEGORY: BIRADS Category 1: Negative. A letter regarding these results will be sent to the patient by the facility within 30 days. Electronically Signed: Josias Gutierrez MD at 13:12 EDT , Service support ,
== END ==
PROVIDERS: PCP Internal Medicine; Referring Provider Internal Medicine; Visit Provider Internal Medicine
DX: N64.59 Other signs and symptoms in breast (principal); N64.4 Mastodynia
CPT/HCPCS: 76642

== ENCOUNTER 2021-04-23 08:31 | Outpatient (CLI) | payer OTHER, SELFPAY ==
[2021-04-23 12:29] LABS: Vitamin D,25 Hydroxy 23.4 ng/mL
== END 2021-04-23 23:59 | disposition home or self-care (01) ==
LOC: BIMLAB 08:31
PROVIDERS: PCP Internal Medicine; Referring Provider Internal Medicine; Visit Provider Internal Medicine
DX: E55.9 Vitamin D deficiency, unspecified (principal)
CPT/HCPCS: 36415; 82306

== ENCOUNTER 2021-04-29 15:19 | Outpatient (CLI) | payer OTHER, SELFPAY ==
--- NOTE | 2021-04-29 15:35 | US_ITS ---
STUDY: THYROID ULTRASOUND REASON FOR EXAM: Female, 35 years old. Thyroid Nodules- F/U TECHNIQUE: Ultrasound evaluation of the thyroid was performed with real-time and static alanis-scale imaging. COMPARISON: Mar 13 2020 9:37am FINDINGS: RIGHT LOBE: The right lobe of the thyroid gland measures 5.3 x 1.8 cm. There is a homogeneous echotexture. There is a nodule. This measures 3 x 3 x 1 mm. This is in the mid pole. The lesion is solid with regular margins and joseline nodular doppler flow. LEFT LOBE: The left lobe of the thyroid gland measures 5.7 x 1.8 cm. There is a homogeneous echotexture. There is a nodule. This measures 5 x 3 x 3 mm. The lesion is solid with regular margins and joseline nodular doppler flow. ISTHMUS: The isthmus measures 2 mm. US/Thyroid IMPRESSION: There is a new RIGHT nodule. This nodule is solid or almost completely solid, hyperechoic or isoechoic, [id number], smoothly marginated and contains no echogenic foci. TI-RADS points: 3. TI-RADS category: TR3. This nodule is mildly suspicious but no FNA or follow-up is necessary given the small size of this nodule. There is an enlarging left nodule. This nodule is solid or almost completely solid, hypoechoic, [id number], smoothly marginated and contains no echogenic foci. TI-RADS points: 4. TI-RADS category: TR4. This nodule is moderately suspicious but no FNA or follow-up is necessary given the small size of this nodule. Electronically Signed: Duong Benites MD at 16:33 EDT ,
== END 2021-04-29 23:59 | disposition home or self-care (01) ==
PROVIDERS: PCP Internal Medicine; Referring Provider Internal Medicine; Visit Provider Internal Medicine
DX: E04.1 Nontoxic single thyroid nodule (principal)
CPT/HCPCS: 76536

== ENCOUNTER → 2021-07-08 | Outpatient (CLI) | payer OTHER, SELFPAY ==
[2021-07-08 15:03] LABS: Absolute Lymphocyte Count 0.91 X10^3/uL (0.83-4.51); Basophil# 0.02 X10^3/uL; Basophil% 0.4 % (0-1); Eosinophil# 0.08 X10^3/uL; Eosinophils% 1.5 % (0-5); Hemoglobin 13.3 g/dL (12.0-15.0); Lymphocyte # 0.91 X10^3/ul (0.83-4.51); Mean Corp Hgb Conc 34.1 g/dL (32-36); Mean Corpuscular Hgb 32.1 pg (27.0-32.0); Mean Corpuscular Volume 94.2 fL (81-99); Mean Platelet Vol. 10.4 fl (6.2-12.0); Monocyte# 0.27 X10^3/uL; NRBC Flagged by Analyzer 0 % (0-5); Neutrophil # 4.04 X10^3/uL (2.7-7.7); Neutrophil % 75.5 % (47-70); Platelet Count 283 K/mm3 (150-450); RBC Distribution Width CV 12.5 % (11.6-14.6); Red Blood Count 4.14 M/mm3 (4.2-5.4); White Blood Count 5.4 K/mm3 (4.4-11.0)
[2021-07-08 15:36] LABS: ALB/GLOB Ratio 1.1 RATIO (0.9-2.4); AST(SGOT) 20 U/L (15-37); Alanine Aminotransfer ALT/SGPT 35 U/L (13-56); Albumin, Serum 4.2 g/dL (3.2-5.0); Alkaline Phosphatase 75 U/L (45-117); Anion Gap 5 (5-15); BUN 9 mg/dL (7-18); BUN/Creat Ratio 11.5 RATIO (10-20); Chloride 102 mmol/L (98-107); Cholesterol 234 mg/dL (200); Creatinine, Serum 0.78 mg/dL (0.55-1.02); EST Glomerular Filtration Rate 89 mL/min (>60); Est Glom Filt Rate - Afr Amer 108 mL/min (>60); Globulin 3.7 g/dL (2.2-4.2); Glucose 84 mg/dL (74-106); High Density Lipoprotein 70 mg/dL; Potassium 3.9 mmol/L (3.5-5.1); Protein, Total 7.9 g/dL (6.4-8.2); Sodium Level 138 mmol/L (136-145); Triglycerides 79 mg/dL; Very Low Density Lipoprotein 16 mg/dL (5-40)
== END | disposition home or self-care (01) ==
LOC: BIMLAB 14:21
PROVIDERS: PCP Internal Medicine; Referring Provider Internal Medicine; Visit Provider Internal Medicine
DX: E78.5 Hyperlipidemia, unspecified (principal)
CPT/HCPCS: 36415; 80053; 80061; 85025

== ENCOUNTER → 2022-04-21 | Outpatient (CLI) | payer OTHER, SELFPAY ==
--- NOTE | 2022-04-21 12:51 | US_ITS ---
STUDY: THYROID ULTRASOUND REASON FOR EXAM: Female, 36 years old. Thyroid nodule. TECHNIQUE: Ultrasound evaluation of the thyroid was performed with real-time and static alanis-scale imaging. COMPARISON: April 29, 2021 FINDINGS: RIGHT LOBE: The right lobe of the thyroid gland measures 4.5 x 1.7 x 1.8 cm. There is a heterogeneous echotexture. There are no demonstrated solid, cystic or complex lesions. Normal vascularity on. Doppler imaging. LEFT LOBE: The left lobe of the thyroid gland measures 5.5 x 1.6 x 1.4 cm. There is a heterogeneous echotexture. There is a 0.5 x 0.4 x 0.3 cm hypoechoic nodule along the posterior aspect of the thyroid. Normal vascularity. ISTHMUS: The isthmus measures 0.2 cm. Superior to the right thyroid there is a 1.5 x 0.5 x 0.1 cm benign-appearing lymph node. US/Thyroid IMPRESSION: 1. Small stable hypodensity along the posterior aspect of the left thyroid. Thyroid nodule versus parathyroid gland. It is essentially unchanged from March 13, 2020. This is considered moderate suspicious, TR 4 by TI-RADS categorization. No FNA or follow-up is required due to its small size. Electronically Signed: Mike Carmona DO at 16:36 EST ,
== END | disposition home or self-care (01) ==
LOC: US 12:49
PROVIDERS: PCP Internal Medicine; Visit Provider Internal Medicine
DX: E04.1 Nontoxic single thyroid nodule (principal)
CPT/HCPCS: 76536

== ENCOUNTER → 2022-08-18 | Outpatient (CLI) | payer OTHER, SELFPAY ==
[2022-08-18 16:41] LABS: Absolute Lymphocyte Count 0.96 X10^3/uL (0.83-4.51); Absolute Neutrophil Count 3.9 X10^3/uL (2.0-7.7); Basophil# 0.02 X10^3/uL; Basophil% 0.4 % (0-1); Eosinophil# 0.07 X10^3/uL; Eosinophils% 1.3 % (0-5); Hematocrit 37.1 % (37-47); Hemoglobin 12.9 g/dL (12.0-15.0); Lymphocyte # 0.96 X10^3/ul (0.83-4.51); Lymphocyte % 18.4 % (19-41); Mean Corp Hgb Conc 34.8 g/dL (32-36); Mean Corpuscular Hgb 32.5 pg (27.0-32.0); Mean Corpuscular Volume 93.5 fL (81-99); Mean Platelet Vol. 10.1 fl (6.2-12.0); Monocyte# 0.27 X10^3/uL; Monocyte% 5.2 % (0-10); NRBC Flagged by Analyzer 0 % (0-5); Neutrophil # 3.88 X10^3/uL (2.7-7.7); Neutrophil % 74.5 % (47-70); Platelet Count 256 K/mm3 (150-450); Red Blood Count 3.97 M/mm3 (4.2-5.4); White Blood Count 5.2 K/mm3 (4.4-11.0)
[2022-08-18 17:02] LABS: ALB/GLOB Ratio 1.1 RATIO (0.9-2.4); AST(SGOT) 25 U/L (15-37); Alanine Aminotransfer ALT/SGPT 30 U/L (13-56); Alkaline Phosphatase 67 U/L (45-117); Anion Gap 6 (5-15); BUN 6 mg/dL (7-18); BUN/Creat Ratio 7.2 RATIO (10-20); Calcium,Total 9.2 mg/dL (8.5-10.1); Chloride 105 mmol/L (98-107); Cholesterol 205 mg/dL (200); Creatinine, Serum 0.83 mg/dL (0.55-1.02); EST Glomerular Filtration Rate 83 mL/min (>60); Est Glom Filt Rate - Afr Amer 100 mL/min (>60); Globulin 3.6 g/dL (2.2-4.2); Glucose 87 mg/dL (74-106); High Density Lipoprotein 76 mg/dL; Potassium 3.8 mmol/L (3.5-5.1); Protein, Total 7.6 g/dL (6.4-8.2); Sodium Level 139 mmol/L (136-145); T4 Free Direct 1.09 ng/dL (0.76-1.46); Thyroid Stim Hormone (TSH) 1.93 uIU/mL (0.358-3.74); Triglycerides 75 mg/dL; Very Low Density Lipoprotein 15 mg/dL (5-40)
== END | disposition home or self-care (01) ==
LOC: BIMLAB 15:24
PROVIDERS: PCP Internal Medicine; Referring Provider Internal Medicine; Visit Provider Internal Medicine
DX: Z00.00 Encounter for general adult medical examination without abnormal findings (principal); Z13.29 Encounter for screening for other suspected endocrine disorder
CPT/HCPCS: 36415; 80053; 80061; 84439; 84443; 85025

== ENCOUNTER → 2023-07-20 | Outpatient (CLI) | payer OTHER, SELFPAY ==
[2023-07-20 14:58] LABS: Absolute Neutrophil Count 3.3 X10^3/uL (2.0-7.7); Basophil# 0.04 X10^3/uL; Basophil% 0.8 % (0-1); Eosinophil# 0.04 X10^3/uL; Eosinophils% 0.8 % (0-5); Hematocrit 38.8 % (37-47); Hemoglobin 13.3 g/dL (12.0-15.0); Lymphocyte % 21.2 % (19-41); Mean Corp Hgb Conc 34.3 g/dL (32-36); Mean Corpuscular Hgb 32.4 pg (27.0-32.0); Mean Corpuscular Volume 94.4 fL (81-99); Mean Platelet Vol. 10.6 fl (6.2-12.0); Monocyte# 0.28 X10^3/uL; Monocyte% 5.9 % (0-10); NRBC Flagged by Analyzer 0 % (0-5); Neutrophil # 3.34 X10^3/uL (2.7-7.7); Neutrophil % 71.1 % (47-70); Platelet Count 237 K/mm3 (150-450); RBC Distribution Width CV 12.3 % (11.6-14.6); RBC Distribution Width SD 42.8 fl (35.1-43.9); Red Blood Count 4.11 M/mm3 (4.2-5.4); White Blood Count 4.7 K/mm3 (4.4-11.0)
[2023-07-20 15:15] LABS: ALB/GLOB Ratio 1.1 RATIO (0.9-2.4); AST(SGOT) 20 U/L (15-37); Alanine Aminotransfer ALT/SGPT 32 U/L (13-56); Albumin, Serum 4.2 g/dL (3.2-5.0); Alkaline Phosphatase 64 U/L (45-117); Anion Gap 6 (5-15); BUN 10 mg/dL (7-18); Calcium,Total 9.2 mg/dL (8.5-10.1); Chloride 107 mmol/L (98-107); Cholesterol 223 mg/dL (200); Creatinine, Serum 0.83 mg/dL (0.55-1.02); EST Glomerular Filtration Rate 82 mL/min (>60); Est Glom Filt Rate - Afr Amer 100 mL/min (>60); Globulin 3.7 g/dL (2.2-4.2); Glucose 85 mg/dL (74-106); High Density Lipoprotein 79 mg/dL; Potassium 3.6 mmol/L (3.5-5.1); Protein, Total 7.9 g/dL (6.4-8.2); Sodium Level 138 mmol/L (136-145); T4 Free Direct 1.17 ng/dL (0.76-1.46); Thyroid Stim Hormone (TSH) 1.29 uIU/mL (0.358-3.74); Triglycerides 48 mg/dL; Very Low Density Lipoprotein 10 mg/dL (5-40); Vitamin B12 645 pg/mL (211-911); Vitamin D,25 Hydroxy 20.7 ng/mL
== END | disposition home or self-care (01) ==
PROVIDERS: PCP Internal Medicine; Referring Provider Nurse Practitioner Family; Visit Provider Nurse Practitioner Family
DX: Z13.29 Encounter for screening for other suspected endocrine disorder (principal); E78.00 Pure hypercholesterolemia, unspecified
CPT/HCPCS: 36415; 80053; 80061; 82306; 82607; 84439; 84443; 85025

== ENCOUNTER → 2023-08-03 | Outpatient (CLI) | payer OTHER, SELFPAY ==
--- NOTE | 2023-08-03 14:07 | US_ITS ---
STUDY: ULTRASOUND BREAST - RIGHT REASON FOR EXAM: Female, 37 years old. Right breast lump. TECHNIQUE: Axial and longitudinal images of the RIGHT breast were performed with a high resolution ultrasound transducer. # OF IMAGES: 10 COMPARISON: Comparison is made with prior mammogram done earlier today. FINDINGS: RIGHT Breast: The upper inner portion of the right breast was examined with ultrasound. There is heterogeneously dense fibroglandular tissue. No sonographic abnormality is seen. US/Breast Limited Unilateral IMPRESSION: No sonographic abnormality is seen. ASSESSMENT CATEGORY: BIRADS Category 1: Negative. A letter regarding these results will be sent to the patient by the facility within 30 days. Electronically Signed: Josias Gutierrez MD at 9:50 EDT ,
--- NOTE | 2023-08-03 14:07 | BI_ITS ---
MAMMOGRAPHY - BILATERAL DIAGNOSTIC REASON FOR EXAM: Female, 37 years old. Right breast lump. PERTINENT HISTORY: Grandmother with breast cancer. TECHNIQUE: Digital bilateral breast harris (3D mammographic acquisition) in the CC and MLO projections. 2-D mediolateral oblique (MLO) and craniocaudad (CC) views of both breasts were obtained. CAD: Full Field Digital Mammography with Computer Added Detection was performed. COMPARISON: Comparison is made with prior outside examination dated June 13, 2013. FINDINGS: Breast Composition: The breasts are heterogeneously dense, which may obscure small masses. There are no dominant masses or suspicious calcifications. No other significant abnormalities are identified. There has been no significant change since the prior study. BI/DIAG MAMM W/CAD, BILAT IMPRESSION: Stable bilateral diagnostic mammogram. With the patient''s history of a palpable lump in the right breast, correlation with ultrasound is recommended. ASSESSMENT CATEGORY: BIRADS Category 0: Incomplete. Need additional imaging evaluation. A letter regarding these results will be sent to the patient by the facility within 30 days. Approximately 10% of breast cancers are not detected by mammography. A normal mammogram should not delay biopsy of a clinically suspicious abnormality. Electronically Signed: Josias Gutierrez MD at 15:28 EDT ,
== END | disposition home or self-care (01) ==
PROVIDERS: PCP Internal Medicine; Referring Provider Nurse Practitioner Family; Visit Provider Nurse Practitioner Family
DX: N63.11 Unspecified lump in the right breast, upper outer quadrant (principal)
CPT/HCPCS: 76642; 77062; 77066; G0279

== ENCOUNTER → 2024-08-08 | Outpatient (CLI) | payer OTHER, SELFPAY ==
[2024-08-08 12:15] LABS: Absolute Lymphocyte Count 0.81 X10^3/uL (0.83-4.51); Absolute Neutrophil Count 2.4 X10^3/uL (2.0-7.7); Basophil# 0.03 X10^3/uL; Basophil% 0.9 % (0-1); Eosinophil# 0.06 X10^3/uL; Eosinophils% 1.7 % (0-5); Hematocrit 40.3 % (37-47); Lymphocyte # 0.81 X10^3/ul (0.83-4.51); Lymphocyte % 23.1 % (19-41); Mean Corp Hgb Conc 34.7 g/dL (32-36); Mean Corpuscular Hgb 32.9 pg (27.0-32.0); Mean Corpuscular Volume 94.6 fL (81-99); Mean Platelet Vol. 10.7 fl (6.2-12.0); Monocyte# 0.23 X10^3/uL; Monocyte% 6.6 % (0-10); NRBC Flagged by Analyzer 0 % (0-5); Neutrophil # 2.37 X10^3/uL (2.7-7.7); Neutrophil % 67.4 % (47-70); Platelet Count 253 K/mm3 (150-450); RBC Distribution Width CV 12.3 % (11.6-14.6); RBC Distribution Width SD 42.6 fl (35.1-43.9); Red Blood Count 4.26 M/mm3 (4.2-5.4); White Blood Count 3.5 K/mm3 (4.4-11.0)
[2024-08-08 13:45] LABS: ALB/GLOB Ratio 1.6 RATIO (0.9-2.4); AST(SGOT) 25 U/L (<=31); Alanine Aminotransfer ALT/SGPT 30 U/L (<=34); Albumin, Serum 4.7 g/dL (3.5-5.0); Alkaline Phosphatase 62 U/L (35-104); Anion Gap 13 (5-15); BUN 9 mg/dL (4-19); BUN/Creat Ratio 12.1 RATIO (10-20); Calcium,Total 9.4 mg/dL (7.6-11.0); Chloride 104 mmol/L (98-108); Cholesterol 224 mg/dL (<=200); Creatinine, Serum 0.76 mg/dL (0.70-1.20); EST Glomerular Filtration Rate 104 (>60); Globulin 2.9 g/dL (2.2-4.2); Glucose 94 mg/dL (70-99); High Density Lipoprotein 74 mg/dL; Low Density Lipoprotein Calc. 139 mg/dL; Protein, Total 7.6 g/dL (5.9-8.4); Sodium Level 141 mmol/L (133-145); Total Bilirubin 0.56 mg/dL (0.00-1.30); Triglycerides 57 mg/dL; Very Low Density Lipoprotein 11 mg/dL (5-40); Vitamin D,25 Hydroxy 27.6 ng/mL (30-100); cholesterol:hdl ratio screen 3.03
[2024-08-13 04:07] LABS: Thyroid Peroxidase AB < 9 IU/mL (0-34)
== END | disposition home or self-care (01) ==
PROVIDERS: PCP Internal Medicine; Referring Provider Nurse Practitioner Family; Visit Provider Nurse Practitioner Family
DX: Z00.00 Encounter for general adult medical examination without abnormal findings (principal); E78.00 Pure hypercholesterolemia, unspecified; Z13.29 Encounter for screening for other suspected endocrine disorder; E01.0 Iodine-deficiency related diffuse (endemic) goiter
CPT/HCPCS: 36415; 80053; 80061; 82306; 84439; 84443; 85025; 86376

== ENCOUNTER → 2024-08-22 | Outpatient (CLI) | payer OTHER, SELFPAY ==
--- NOTE | 2024-08-22 12:37 | US_ITS ---
PROCEDURE: PELVIC W/ TRANSVAGINAL 08/22/2024 REASON FOR EXAM: ABNORMAL UTERINE BLEEDING TECHNIQUE: PELVIC W/ TRANSVAGINAL COMPARISON: None FINDINGS: Uterus is anteverted and measures 8.3 x 5.7 x 4.4 cm. No obvious fibroids. Endometrium measures 7.3 mm. Endometrium is hyperechoic. Cervical nabothian cysts are seen. Right ovary measures 3.9 x 3.6 x 2.2 cm. Dominant follicle measuring 1.7 x 2 x 1.7 cm is noted. No obvious adnexal lesions. Left ovary measures 3.1 x 3 x 1.9 cm. Normal blood flow. No definite adnexal lesions. Bilateral ovarian peripherally arranged follicles. No free fluid in the posterior cul-de-sac. Urinary bladder volume is 420 cc. US/Pelvic w/ Transvaginal IMPRESSION: Cervical nabothian cysts. No obvious uterine abnormalities. Right ovarian dominant follicle Bilateral ovarian small peripherally arranged follicles, fundus could suggest P CO. Please correlate clinically. [facility]
== END | disposition home or self-care (01) ==
PROVIDERS: PCP Internal Medicine; Referring Provider Nurse Practitioner Family; Visit Provider Nurse Practitioner Family
DX: N93.9 Abnormal uterine and vaginal bleeding, unspecified (principal)
CPT/HCPCS: 76830; 76856

== ENCOUNTER → 2024-12-19 | Outpatient (CLI) | payer OTHER, SELFPAY ==
--- NOTE | 2024-12-19 17:00 | EMB_PTH ---
PATIENT: KIERAN PETERSON LOC: [facility] U#:[id number] AGE/SX: 39/F ROOM: RE12/19/[address]: Dr. Delores García MD : 1985 BED: DIS: 12/19/2024 SPEC #: [id number] RECD: 12/19/24 17:08 STATUS: DENYS REAbilio #: [id number] KELLY: 12/19/24 17:[address]: Delores García DEPT: SURGICAL PATHOLOGY RECD BY: Fabiano Tong ENTERED: 12/20/24 09:48 SP TYPE: ENDOM BX/C YISSEL DR: Dr. Cande Yousif MD Tissues: A - Endometrium, NOS Procedures: Surgery Specimen Level IV HEADER OPERATION: Endometrial biopsy PRE-OP DIAGNOSIS: Abnormal uterine bleeding TISSUE SUBMITTED: A- Endometrial lining MICROSCOPIC DIAGNOSIS A. Endometrium, biopsy: - Secretory endometrium. MICROSCOPIC DESCRIPTION Slides are reviewed. GROSS DESCRIPTION A. Received in formalin labeled the patient's name and date of is a 2.3 x 1.4 x 0.2 cm aggregate of pink-red cylindrical tissue fragments and mucoid material. Entirely submitted in 1 cassette. MD 12/20/2024 CPT:60706
--- OUTSIDE RECORDS SUMMARY | 2024-12-19 17:31 | XMS RPT_ITS | CCD ---
Author Organization [facility] Care Team Providers Care Press Catcher Name Role Phone Dr. Cande Yousif Primary Care Provider [phone] Dr. Cande Yousif Attending Provider [phone] Dr. Cande Yousif Referring Provider [phone] Cande Yousif MD Primary Care Provider [phone] Dr. Cande Yousif Primary Care Provider [phone] Dr. Cande Yousif Referring Provider [phone] Reji PIPE TESTING TECHNICIAN, PIPE TESTING TECHNICIAN-C Taylor Attending Provider Dr. Cande Yousif Attending Provider [phone] Dr. Cande Yousif MD Primary Care Provider Dr. Cande Yousif MD Referring Provider [phone] Martha PIPE TESTING TECHNICIAN-CPratibha Attending Provider Martha PIPE TESTING TECHNICIAN-CPratibha Referring Provider Pratibha Thomas Referring Unavailable Pratibha Thomas Attending Unavailable Oleghe, Efewongbe Primary Care Unavailable Oleghe, Efewongbe Primary Care Unavailable Pratibha Thomas Referring Unavailable Pratibha Thomas Attending Unavailable Oleghe, Efewongbe Primary Care Unavailable Delores García Attending Unavailable Oleghe, Efewongbe Referring Unavailable Pratibha Thomas Attending Unavailable Oleghe, Efewongbe Referring Unavailable Oleghe, Efewongbe Primary Care Unavailable Allergies Allergy Classification Reported Allergen(s) Allergy Type Date of Onset Reaction(s) Facility (9 sources) Doxycycline Drug Allergy 5 Other: See Comments [facility] Work Phone: (7 sources) Pkwaovp-Xoi-Rmg Reductase Inhibitor; Translations: [Dmgmnzu-Rua-Gg a Reductase Inhibitor] Allergy to substance 2 Unknown [facility] Comment on above: Father with "genetic mutation" and unable to use statins. (1 source) Doxycycline Drug Allergy 5 [facility] Repository Medications Current Medications Medication Drug Class(es) Dates Sig (Normalized) Sig (Original) krill oil 500 mg oral capsule (4 sources) Start: 06-23-2022 Krill Oil 500 mg capsule Active mg PO June 23, 2022 12:00am Start: 06-23-2022 Krill Oil Acti ve MG PO June 23, 2022 12:00am Multivitamin preparation (5 sources) Start: 04-23-2021 take 1 tablet by mouth once daily Multivitamin Active 1 TABLET PO DAILY April 23, 2021 9:09am Start: 04-23-2021 take 1 tablet by juan jose th once daily Multivitamin Active 1 TABLET PO DAILY April 23, 2021 1:00am Multivitamin tablet (3 sources) Start: 04-23-2021 Multivitamin t ablet Active 1 {tbl} PO DAILY April 23, 2021 1:00am Completed/Discontinued Medications Medication Drug Class(es) Dates Sig (Normalized) Sig (Original) cholecalciferol 1.25 mg oral capsule (16 sources) Vitamin D Start: 04-02-2020 End: 04-23-2021 take 1 capsule by mouth every week Cholecalciferol (Vitamin D3) 1,250 mcg (50,000 unit) capsule Discontinued 1250 ug PO EVERY WEEK 10 0 June 03, 2020 8:02am April 23, 2021 9:09am clobetasol propionate 0.5 mg/ml topical cream (8 sources) Corticosteroid Start: 03-05-2020 End: 05-05-2020 Clobetasol 0.05 % cream Discontinued 1 NMA TOPICAL .COMPLEX 15 2 March 05, 2020 1:00am May 05, 2020 9:23am 1 applic TOPICAL apply thin layer as directed bid X 2 weeks then daily X 2 weeks; apply thin layer; massage in to cover area estrogens, conjugated (senior living) 0.625 mg/ml vaginal cream (8 sources) Estrogen Start: 03-12-2019 End: 03-05-2020 Conjugated Estrogens (Premarin) 0.625 mg/gram cream Discontinued 0 VAGINAL .COMPLEX 30 March 12, 2019 1:00am March 05, 2020 4:00pm apply small amount VAGINAL 3 nights per week; Start: 03-12-2019 End: 03-05-2020 Conjugated Estrogens (Premar in) 0.625 mg/gram cream Discontinued 0 VAGINAL .COMPLEX March 12, 2019 1:00am March 05, 2020 4:00pm apply small amount VAGINAL 3 nights per week; ferrous sulfate 325 mg oral tablet (8 sources) Start: 11-30-2018 End: 03-05-2020 take 1 tablet by mouth twice daily Ferrous Sulfate (Loli-Time) 325 mg (65 mg iron) tablet Discontinued 325 mg PO TWICE A DAY November 30, 2018 12:00am March 05, 2020 4:00pm ANEMIA fluconazole 200 mg oral tablet (1 source) Azole Antifungal Start: 06-24-2016 take 1 tablet by mouth once daily fluconazole (DIFLUCAN) 200 mg tablet Take 1 tablet by mouth once daily. 2 tablet 0 06/24/2016 Active Comment on above: Take 1 tablet by juan jose once daily. naproxen 250 mg oral tablet (8 sources) Nonsteroidal Anti-inflammatory Drug Start: 01-21-2019 End: 02-26-2019 take 250-500 mg by mouth every eight hours as needed for pain Naproxen 250 MG tablet Discontinued 250 - 500 mg PO EVERY 8 HOURS NEEDED as needed for MILD PAIN 14 03January 21, 2019 1:00am February 26, 2019 1:26pm Pnv #40-Opne-Unbgu Acid-Omega3 30 mg iron-10 mg iron-1 mg capsule (3 sources) Start: 08-01-2018 End: 03-05-2020 Pnv #36-Kkky-Kjqxx Acid-Omega3 30 mg iron-10 mg iron-1 mg capsule Discontinued 1 NMA PO DAILY 0 August 01, 2018 12:00am March 05, 2020 3:59pm Start: 08-01-2018 End: 03-05-2020 Pnv #21-Zvki-Rtbaq Acid-Omeg a3 30 mg iron-10 mg iron-1 mg capsule Discontinued 1 NMA PO DAILY August 01, 2018 12:00am March 05, 2020 3:59pm vitamin#30 30 mg iron-10 mg iron-folic acid 1 mg-omg3 capsule (5 sources) Start: 08-01-2018 End: 03-05-2020 take 1 capsule by mouth once daily vitamin#30 30 mg iron-10 mg iron-folic acid 1 mg-omg3 capsule Discontinued 1 CAP PO DAILY August 01, 2018 4:15pm March 05, 2020 3:59pm Start: 08-01-2018 End: 03-05-2020 take 1 capsule by mouth once daily vitamin#30 30 mg iron-10 mg iron-folic acid 1 mg-omg3 capsule Discontinued 1 CAP PO DAILY August 01, 2018 12:00am March 05, 2020 3:59pm Problems Active Problems Problem Classification Problem Date Documented Da te Episodic/Chronic Diseases of white blood cells (2 sources) Leukopenia; Translations: [Decreased white blood cell count, unspecified] 08-08-2024 Chronic Disorders of lipid metabolism (15 sources) Hyperlipidemia; Translations: [Hyperlipidemia, unspecified] Onset: 08-08-2024 Chronic Menstrual disorders (1 source) Amenorrhea, unspecified; Translations: [Amenorrhea, unspecified] Onset: 08-08-2024 Chronic Nonmalignant breast conditions (11 sources) Mastodynia; Translations: [Pain of left breast] 07-02-2020 Episodic Nutritional deficiencies (11 sources) Vitamin D deficiency; Translations: [Vitamin D deficiency, unspecified] Chronic Other and unspecified benign neoplasm (8 sources) Change in skin lesion; Translations: [Melanocytic nevi, unspecified] 07-02-2020 Episodic Other female genital disorders (6 sources) Abnormal uterine bleeding; Translations: [Abnormal uterine and vaginal bleeding, unspecified] 08-08-2024 Chronic Comment on above: previously failed OC P. 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] 04-23-2021 Chronic Paralysis (12 sources) Monoplegia of upper limb; 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 Thyroid disorders (20 sources) Goiter; 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 Comment on above: labs and imaging WNL labs and imaging WNL prior Past or Other Problems Problem Classification Problem Date Documented Da te Episodic/Chronic Cardiac dysrhythmias (1 source) Palpitations; Translations: [Palpitations] Onset: 03-28-2011 03-28-2011 Episodic Other female genital disorders (1 source) 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 ; 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] Onset: 05-29-2012 05-29-2012 Episodic Other screening for suspected conditions (not mental disorders or infectious disease) (6 sources) Patient encounter status; Translations: [Encounter for screening for other suspected endocrine disorder] Onset: 08-08-2024 08-18-2022 Episodic Residual codes; unclassified (1 source) Flushing; Translations: [Flushing] Onset: 03-28-2011 03-28-2011 Episodic Unclassified (5 sources) D&E 09-13-2021 Results Test Name Value Interpretation Reference Range Facility Pelvic w/ Transvaginalon Pelvic w/ Transvaginal [facility] [address] [place] [address] [id number] Pelvic w/ Transvaginal MR#: [id number] Acct: [id number] Name: KIERAN QIU Rep #: [id number] : 1985 F 38 From: Yousuf worthington MD PCP: Dr. Cande Yousif MD Status: REG CLI Study: Pelvic w/ Transvaginal Date of Exam: 08/22/24 Exam# [id number] Ordering Dr: Pratibha Thomas PIPE TESTING TECHNICIAN-C PROCEDURE: PELVIC W/ TRANSVAGINAL 08/22/2024 REASON FOR EXAM: ABNORMAL UTERINE BLEEDING TECHNIQUE: PELVIC W/ TRANSVAGINAL COMPARISON: None FINDINGS: Uterus is anteverted and measures 8.3 x 5.7 x 4.4 cm. No obvious fibroids. Endometrium measures 7.3 mm. Endometrium is hyperechoic. Cervical nabothian cysts are seen. Right ovary measures 3.9 x 3.6 x 2.2 cm. Dominant follicle measuring 1.7 x 2 x 1.7 cm is noted. No obvious adnexal lesions. Left ovary measures 3.1 x 3 x 1.9 cm. Normal blood flow. No definite adnexal lesions. Bilateral ovarian peripherally arranged follicles. No free fluid in the posterior cul-de-sac. Urinary bladder volume is 420 cc. US/Pelvic w/ Transvaginal IMPRESSION: Cervical nabothian cysts. No obvious uterine abnormalities. Right ovarian dominant follicle Bilateral ovarian small peripherally arranged follicles, fundus could suggest PCO. Please correlate clinically. Reading Location: [place] [address] CC: KAJAL Thomas; Dr. Cande Yousif MD Manual Arts Therapist: Signed Normal [facility] Thyroid Peroxidase ABon 07-0 -2024 THYR PEROX AB < 9 Normal 0-34 [facility] Comment on above: Result Comment: Perf ormed at: CB - [facility] [address] [id number] Traffic Or System Dispatcher: John Phillips PhD, Phone: [phone] Performed By: #### L 4214.8563 #### [facility] [address] [place] [address], [address] Absolute lymphocyte countOrd ered By: Pratibha Thomas on 08-08-2024 Lymphocytes Auto (Unsp spec) [#/Vol] 0.81 10*3/uL Low 0.83-4.51 [facility] Absolute neutrophil countOrd ered By: Pratibha Thomas on 08-08-2024 Neutrophils (Bld) [#/Vol] 2.4 10*3/uL 2.0-7.7 [facility] Anion gap in Serum or Plasma Ordered By: Pratibha Thomas on 06-26-2025 Anion gap [Moles/Vol] 13 mmol/L 5-15 [place] Automated lymphocyte count a s percentage of total leukocytesOrdered By: Pratibha Thomas on 08-08-2024 Lymphocytes/100 WBC Auto (Unsp spec) 23.1 % - [facility] BUN/creatinine ratioOrdered By: Pratibha Thomas on 08-08-2024 Urea nitrogen/Creatinine [Mass ratio] 12.1 mg/mg 10-20 [facility] Basophil percentageOrdered B y: Pratibha Thomas on 08-08-2024 Basophils/100 WBC (Bld) 0.9 % 0-1 [facility] Bilirubin, totalOrdered By: Pratibha Thomas on 08-08-2024 Bilirubin [Mass/Vol] 0.56 mg/dL 0.00-1.30 [facility] CBC W/Diff, Automatedon 07-15 Absolute Lymph 0.81 X10 3/uL Low 0.83-4.51 [facility] Comment on above: Performed By: #### L 506.1001, L500.4050, L100.0100, L506.0400, L500.4100, L501.9520 #### [facility] [address] [place], [address] Absolute Neut 2.4 X10 3/uL Normal 2.0-7.7 [facility] Comment on above: Performed By: #### L 506.1001, L500.4050, L100.0100, L506.0400, L500.4100, L501.9520 #### [facility] [address] [place], [address] Basophils/100 WBC (Bld) 0.9 % Normal 0-1 [facility] Comment on above: Performed By: #### L 506.1001, L500.4050, L100.0100, L506.0400, L500.4100, L501.9520 #### [facility] [address] [place], [address] Eosinophils/100 WBC (Bld) 1.7 % Normal 0-5 [facility] Comment on above: Performed By: #### L 506.1001, L500.4050, L100.0100, L506.0400, L500.4100, L501.9520 #### [facility] [address] [place], [address] Erythrocyte distribution width (RBC) [Ratio] 12.3 % Normal 11.6-14.6 [facility] Comment on above: Performed By: #### L 506.1001, L500.4050, L100.0100, L506.0400, L500.4100, L501.9520 #### [facility] [address] [place], [address] Hematocrit (Bld) [Volume fraction] 40.3 % Normal 37-47 [facility] Comment on above: Performed By: #### L 506.1001, L500.4050, L100.0100, L506.0400, L500.4100, L501.9520 #### [facility] [address] [place], [address] Hemoglobin (Bld) [Mass/Vol] 14.0 g/dL Normal 12.0-15.0 [facility] Comment on above: Performed By: #### L 506.1001, L500.4050, L100.0100, L506.0400, L500.4100, L501.9520 #### [facility] [address] [place], [address] IG% 0.300 Normal 0.0-0.9 [facility] Comment on above: Result Comment: IG% - Immature Granulocytes (promyelocytes, myelocytes and metamyelocytes) > 1% indicates that a LEFT SHIFT is Present. Performed By: #### L 506.1001, L500.4050, L100.0100, L506.0400, L500.4100, L501.9520 #### [facility] [address] [place], [address] Lymphocytes/100 WBC (Bld) 23.1 % Normal 19-41 [facility] Comment on above: Performed By: #### L 506.1001, L500.4050, L100.0100, L506.0400, L500.4100, L501.9520 #### [facility] [address] [place], [address] MCH (RBC) [Entitic mass] 32.9 pg High 27.0-32.0 [facility] Comment on above: Performed By: #### L 506.1001, L500.4050, L100.0100, L506.0400, L500.4100, L501.9520 #### [facility] [address] [place], [address] MCHC (RBC) [Mass/Vol] 34.7 g/dL Normal 32-36 [place] Comment on above: Performed By: #### L 506.1001, L500.4050, L100.0100, L506.0400, L500.4100, L501.9520 #### [facility] [address] [place], [address] MCV (RBC) [Entitic vol] 94.6 fL Normal 81-99 [facility] Comment on above: Performed By: #### L 506.1001, L500.4050, L100.0100, L506.0400, L500.4100, L501.9520 #### [facility] [address] [place], [address] Monocytes/100 WBC (Bld) 6.6 % Normal 0-10 [facility] Comment on above: Performed By: #### L 506.1001, L500.4050, L100.0100, L506.0400, L500.4100, L501.9520 #### [facility] [address] [place], [address] Neutrophils/100 WBC (Bld) 67.4 % Normal 47-70 [facility] Comment on above: Performed By: #### L 506.1001, L500.4050, L100.0100, L506.0400, L500.4100, L501.9520 #### [facility] [address] [place], [address] Nucleated RBC (Bld) [#/Vol] 0 10*3/uL Normal 0-5 [facility] Comment on above: Performed By: #### L 506.1001, L500.4050, L100.0100, L506.0400, L500.4100, L501.9520 #### [facility] [address] [place], [address] Platelet mean volume (Bld) [Entitic vol] 10.7 fL Normal 6.2-12.0 [facility] Comment on above: Performed By: #### L 506.1001, L500.4050, L100.0100, L506.0400, L500.4100, L501.9520 #### [facility] [address] [place], [address] Platelets (Bld) [#/Vol] 253 10*3/uL Normal 150-450 [facility] Comment on above: Performed By: #### L 506.1001, L500.4050, L100.0100, L506.0400, L500.4100, L501.9520 #### [facility] [address] [place], [address] RBC (Bld) [#/Vol] 4.26 10*6/uL Normal 4.2-5.4 [facility] Comment on above: Performed By: #### L 506.1001, L500.4050, L100.0100, L506.0400, L500.4100, L501.9520 #### [facility] [address] [place], [address] RDW SD 42.6 fl Normal 35.1-43.9 [facility] Comment on above: Performed By: #### L 506.1001, L500.4050, L100.0100, L506.0400, L500.4100, L501.9520 #### [facility] [address] [place], [address] WBC (Bld) [#/Vol] 3.5 10*3/uL Low 4.4-11.0 [facility] Comment on above: Performed By: #### L 506.1001, L500.4050, L100.0100, L506.0400, L500.4100, L501.9520 #### [facility] [address] [place], [address] Calculated very low density lipoprotein (VLDL) cholesterol measurementOrdered By: Pratibha Thomas on 08-08-2024 Calculated very low density lipoprotein (VLDL) cholesterol measurement 11 mg/dL 5-40 [facility] Carbon dioxide, total [Moles /volume] in Central venous bloodOrdered By: Pratibha Thomas on 08-08-2024 CO2 [Moles/Vol] 24.0 mmol/L 21.0-32.0 [facility] Chloride assayOrdered By: Danita Thomas on 08-08-2024 Chloride [Moles/Vol] 104 mmol/L 98-108 [facility] Comprehensive Metabolic Prof ilon 08-08-2024 Albumin [Mass/Vol] 4.7 g/dL Normal 3.5-5.0 [facility] Comment on above: Performed By: #### L 506.1001, L500.4050, L100.0100, L506.0400, L500.4100, L501.9520 #### [facility] [address] [place], [address] Albumin/Globulin [Mass ratio] 1.6 {ratio} Normal 0.9-2.4 [facility] Comment on above: Performed By: #### L 506.1001, L500.4050, L100.0100, L506.0400, L500.4100, L501.9520 #### [facility] [address] [place], [address] ALK PHOS 62 U/L Normal 35-104 [facility] Comment on above: Performed By: #### L 506.1001, L500.4050, L100.0100, L506.0400, L500.4100, L501.9520 #### [facility] [address] [place], [address] ALT [Catalytic activity/Vol] 30 U/L Normal <=34 [facility] Comment on above: Performed By: #### L 506.1001, L500.4050, L100.0100, L506.0400, L500.4100, L501.9520 #### [facility] [address] [place], [address] AST [Catalytic activity/Vol] 25 U/L Normal <=31 [facility] Comment on above: Performed By: #### L 506.1001, L500.4050, L100.0100, L506.0400, L500.4100, L501.9520 #### [facility] [address] [place], [address] Bilirubin [Mass/Vol] 0.56 mg/dL Normal 0.00-1.30 [facility] Comment on above: Performed By: #### L 506.1001, L500.4050, L100.0100, L506.0400, L500.4100, L501.9520 #### [facility] [address] [place], [address] BUN/CRE 12.1 RATIO Normal 10-20 [facility] Comment on above: Performed By: #### L 506.1001, L500.4050, L100.0100, L506.0400, L500.4100, L501.9520 #### [facility] [address] [place], [address] Calcium [Mass/Vol] 9.4 mg/dL Normal 7.6-11.0 [facility] Comment on above: Performed By: #### L 506.1001, L500.4050, L100.0100, L506.0400, L500.4100, L501.9520 #### [facility] [address] [place], [address] Chloride [Moles/Vol] 104 mmol/L Normal 98-108 [facility] Comment on above: Performed By: #### L 506.1001, L500.4050, L100.0100, L506.0400, L500.4100, L501.9520 #### [facility] [address] [place], [address] CO2 [Moles/Vol] 24.0 mmol/L Normal 21.0-32.0 [facility] Comment on above: Performed By: #### L 506.1001, L500.4050, L100.0100, L506.0400, L500.4100, L501.9520 #### [facility] [address] [place], [address] Creatinine [Mass/Vol] 0.76 mg/dL Normal 0.70-1.20 [place] Comment on above: Performed By: #### L 506.1001, L500.4050, L100.0100, L506.0400, L500.4100, L501.9520 #### [facility] [address] [place], [address] GAP 13 Normal 5-15 [facility] Comment on above: Performed By: #### L 506.1001, L500.4050, L100.0100, L506.0400, L500.4100, L501.9520 #### [facility] [address] [place], [address] GFR/1.73 sq M.predicted among non-blacks MDRD (S/P/Bld) [Vol rate/Area] 104 mL/min/{1.73_m2} Normal >60 [facility] Comment on above: Result Comment: mL/m in/1.73m2 CKD-EPI Creatinine Equation (2020) Performed By: #### L 506.1001, L500.4050, L100.0100, L506.0400, L500.4100, L501.9520 #### [facility] [address] [place], [address] Globulin (S) [Mass/Vol] 2.9 g/dL Normal 2.2-4.2 [facility] Comment on above: Performed By: #### L 506.1001, L500.4050, L100.0100, L506.0400, L500.4100, L501.9520 #### [facility] [address] [place], [address] Glucose [Mass/Vol] 94 mg/dL Normal 70-99 [facility] Comment on above: Performed By: #### L 506.1001, L500.4050, L100.0100, L506.0400, L500.4100, L501.9520 #### [facility] [address] [place], [address] Potassium [Moles/Vol] 4.0 mmol/L Normal 3.3-5.1 [place] Comment on above: Performed By: #### L 506.1001, L500.4050, L100.0100, L506.0400, L500.4100, L501.9520 #### [facility] [address] [place], [address] Sodium [Moles/Vol] 141 mmol/L Normal 133-145 [facility] Comment on above: Performed By: #### L 506.1001, L500.4050, L100.0100, L506.0400, L500.4100, L501.9520 #### [facility] [address] [place], [place], [id number] T PROT 7.6 g/dL Normal 5.9-8.4 [facility] Comment on above: Performed By: #### L 506.1001, L500.4050, L100.0100, L506.0400, L500.4100, L501.9520 #### [facility] [address] [place], [place], [address] Urea nitrogen [Mass/Vol] 9 mg/dL Normal 4-19 [facility] Comment on above: Performed By: #### L 506.1001, L500.4050, L100.0100, L506.0400, L500.4100, L501.9520 #### [facility] [address] [place], [place], [id number] Eosinophil percentageOrdered By: Pratibha Thomas on 08-08-2024 Eosinophils/100 WBC (Bld) 1.7 % 0-5 [facility] Erythrocyte distribution wid th ratioOrdered By: Pratibha Thomas on 08-08-2024 Erythrocyte distribution width (RBC) [Ratio] 12.3 % 11.6-14.6 [facility] Erythrocyte distribution wid th standard deviationOrdered By: Pratibha Thomas on 08-08-2024 Erythrocyte distribution width (RBC) [Ratio] 42.6 fl 35.1-43.9 [facility] Glomerular filtration rate ( GFR) estimation/1.73 sq m using serum, plasma, or whole bOrdered By: Pratibha Thomas on 08-08-2024 GFR/1.73 sq M.predicted among non-blacks MDRD (S/P/Bld) [Vol rate/Area] 104 mL/min/{1.73_m2} >60 [facility] Comment on above: mL/min/1.73m2 CKD-EP I Creatinine Equation (2020) Hematocrit Auto (Bld) [Volum e fraction]Ordered By: Pratibha Thomas on 08-08-2024 Hematocrit (Bld) [Volume fraction] 40.3 % 37-47 [facility] Hemoglobin measurementOrdere d By: Pratibha Thomas on 08-08-2024 Hemoglobin (Bld) [Mass/Vol] 14.0 g/dL 12.0-15.0 [facility] Immature granulocytes/100 WB C Auto (Bld)Ordered By: Pratibha Thomas on 08-08-2024 Immature granulocytes/100 WBC (Bld) 0.300 % 0.0-0.9 [facility] Comment on above: IG% - Immature Granu locytes (promyelocytes, myelocytes and metamyelocytes) > 1% indicates that a LEFT SHIFT is Present. LDL calc ser/plasOrdered By: Pratibha Thomas on 08-08-2024 Cholesterol in LDL [Mass/Vol] 139 mg/dL [facility] Comment on above: Levdrxdplj=431-935 m g/dL & Higher Guac=508 mg/dL or greater Laboratory - Chemistry and C hemistry - challengeOrdered By: Pratibha Thomas on 08-08-2024 HCG ( test) Ql (U) Negative [facility] AST [Catalytic activity/Vol] 25 U/L <32 [facility] Lipid Profileon 08-08-2024 CHOL:HDL 3.03 Normal [facility] Comment on above: Performed By: #### L 506.1001, L500.4050, L100.0100, L506.0400, L500.4100, L501.9520 #### [facility] Laboratory [address] [place], [place], [id number] Cholesterol [Mass/Vol] 224 mg/dL High <=200 [facility] Comment on above: Result Comment: Chol esterol level, Desirable <200 mg/dL Borderline high cholesterol 200-239 mg/dL High cholesterol >=240 mg/dL Recommendations of the NCEP Adult Treatment Panel for the following risk-cutoff thresholds for the [place] population. Performed By: #### L 506.1001, L500.4050, L100.0100, L506.0400, L500.4100, L501.9520 #### [facility] [address] [place], [address] Cholesterol in HDL [Mass/Vol] 74 mg/dL Normal [facility] Comment on above: Result Comment: Safia onal Cholesterol Education Program (NCEP) guidelines: <40 mg/dL: Low HDL-cholesterol (major risk factor for CHD) >= 60 mg/dL: High HDL-cholesterol (negative risk factor for CHD) HDL-cholesterol is affected by a number of factors, e.g. smoking, exercise, hormones, sex and age. Performed By: #### L 506.1001, L500.4050, L100.0100, L506.0400, L500.4100, L501.9520 #### [facility] [address] [place], [address] Cholesterol in LDL [Mass/Vol] 139 mg/dL Normal [facility] Comment on above: Result Comment: Bord yervkt=295-394 mg/dL Higher Ggsv=888 mg/dL or greater Performed By: #### L 506.1001, L500.4050, L100.0100, L506.0400, L500.4100, L501.9520 #### [facility] [address] [place], [address] Cholesterol in VLDL [Mass/Vol] 11 mg/dL Normal 5-40 [facility] Comment on above: Performed By: #### L 506.1001, L500.4050, L100.0100, L506.0400, L500.4100, L501.9520 #### [facility] [address] [place], [address] Triglyceride [Mass/Vol] 57 mg/dL Normal [facility] Comment on above: Result Comment: The drugs N-Acetylcysteine and Metamizole may falsely depress this assay. Normal range: <150 mg/dL Borderline High: 150-199 mg/dL High: 200-499 mg/dL Very High: >500 mg/dL Performed By: #### L 506.1001, L500.4050, L100.0100, L506.0400, L500.4100, L501.9520 #### [facility] [address] [place], [address] MCV (mean corpuscular volume ) determinationOrdered By: Pratibha Thomas on 08-08-2024 MCV (RBC) [Entitic vol] 94.6 fL 81-99 [facility] Mean corpuscular hemoglobin (MCH) determinationOrdered By: Pratibha Thomas on 08-08-2024 MCH (RBC) [Entitic mass] 32.9 pg High 27.0-32.0 [facility] Mean corpuscular hemoglobin concentration (MCHC) determinationOrdered By: Pratibha Thomas on 08-08-2024 MCHC (RBC) [Mass/Vol] 34.7 g/dL 32-36 [place] Mean platelet volume determi nationOrdered By: Pratibha Thomas on 08-08-2024 Platelet mean volume (Bld) [Entitic vol] 10.7 fL 6.2-12.0 [facility] Monocyte percentageOrdered B y: Pratibha Thomas on 08-08-2024 Monocytes/100 WBC (Bld) 6.6 % 0-10 [facility] Neutrophil percentageOrdered By: Pratibha Thomas on 08-08-2024 Neutrophils/100 WBC (Bld) 67.4 % 47-70 [facility] Nucleated red blood cell per centageOrdered By: Pratibha Thomas on 08-08-2024 Nucleated RBC/100 WBC (Bld) [Ratio] 0 % 0-5 [facility] Customer Strategy Manager Office Visit Reporton 08-08-2024 Customer Strategy Manager Office Visit Report [facility] [address], [address] [place] [address] OFFICE VISIT Date of Service: 08/08/24 MR#: [id number] Acct: [id number] Name: KIERAN QIU Rep #: [id number] : 1985 Provider: KAJAL Retana Age/Sex: 38/F Location: [facility] Status: Signed Intake Vital Signs 07/20/23 13:23 08/08/24 10:49 Height 5 ft 3 in 5 ft 3 in Weight: 148 lb BMI 26.2 BP 128/84 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 Is patient in pain?: No Allergies doxycycline Allergy (Mild, Verified 08/08/24 10:56) Other Pvnbrzr-TQM-XtJ Reductase Inhibitor Allergy (Unknown, Verified 08/08/24 10:56) Unknown Medications ???Medication ???Instructions ???Recorded ???Confirmed ???Type multivitamin 1 tab PO DAILY 04/23/21 08/08/24 H istory krill oil 500 mg capsule mg PO 06/23/22 08/08/24 History Is last menstrual period known: Yes Last Menstrual Period: 06/28/24 Post menopausal: No Patient : No : No PFSH Medical History Hypercholesteremia Preventative health care Screening for thyroid disorder Paralysis of right upper extremity Vitamin D deficiency Tremor Paralysis of left upper extremity Thyroid nodule Breast pain, left Change in skin mole Hyperlipidemia Surgical History History of wisdom tooth extraction, class II edentulism H/O toe surgery H/O LEEP D E H/O dilation and curettage Family History Grandfather Heart disease Grandmother Breast cancer Mother Diabetes Thyroid disorder Father Diabetes Social History current occupational status: employed current occupation: [employer] Smoking Status: Former smoker alcohol intake: never substance use type: does not use caffeine: Yes what type of physical activity do you participate in: walking seatbelt use: always do you feel safe at home: Yes additional social history: [employer] History 4 Elective abortions Hx Para 1 Spontaneous abortions Hx # Term Pregnancies Ectopic pregnancies Hx # Pregnancies Multiple births # of living children 1 Past Pregnancies Del. Date Name GA/Weeks Outcome Route Bth Weight Gen Labor Lgth Anesthesia Del Locatn Provider FOB Unknown SAB Unknown EAB Unknown Chemical 01/19/19 [facility] live - full term 8lbs Female epidural [facility] Encounter for routine gynecological examination Details: KIERAN QIU is a 38 year old who presents for annual exam. She reports she has spotting in between cycles; however is currently on day 40 of her cycle and thus far skipped her period this month. She reports when she has her menses they are heavy and she is passing clots. She is interested in permanent contraception vs hysterectomy. She has tried OCP in the past to help control her menses and did not tolerate this well. Last PAP: 2020--normal/neg. History of abnormal PAP: Yes, 2009 hx of LEEP Last mammogram: 2023- Normal History of abnormal mammogram: none. Colon cancer screening: Due at 46yr Other preventative health care screenings: PCP- Dr. Yousif. Female Reproductive History Last Menstrual Period: 06/28/24 Questions: metorrhagia: No, sexually active: Yes, dyspareunia: No and PCB: No ROS Const Constitutional: Denies chills, fatigue, fever(s), headache(s) or weight loss Eyes Eyes: Denies change in vision ENT ENT: Denies dizziness Cardio Card: Denies chest pain at rest or palpitations Resp Resp: Denies cough or dyspnea GI GI: Denies abdominal pain, constipation or nausea : Denies difficulty voiding, dysuria, hematuria, pelvic pain, prolapse symptoms, urinary incontinence, vaginal discharge, vaginal dryness, vaginal odor or vaginal pruritus Skin Skin/Breast: Denies alopecia or rash Neuro Neuro: Denies dizziness Psych Psych: Denies anxiety or depression Endo Endo: Denies cold intolerance, excessive sweating or heat intolerance Exam Const General: cooperative, healthy appearing, comfortable, no acute distress, well groomed and well hydrated Nutritional Appearance: well nourished Orientation: alert, awake and oriented x3 HENMT Head: normal to inspection and normocephalic Ears: hearing grossly normal bilaterally and external ears normal Nose: external nose normal Face and sinus: normal facial exam Eyes General: appearance normal, both eyes and all related structures Neck Neck: normal visual inspection, full ROM and no lymphadenopathy Thyroid: thyroid normal Chest Chest palpation inspection: normal i (more content not included)... Normal [facility] Platelet countOrdered By: Danita Thomas on 08-08-2024 Platelets (Bld) [#/Vol] 253 10*3/uL 150-450 [facility] Potassium measurement (mass/ volume)Ordered By: Pratibha Thomas on 08-08-2024 Potassium (Unsp spec) [Mass/Vol] 4.0 mmol/L 3.3-5.1 [facility] RBC Auto (Bld) [#/Vol]Ordere d By: Pratibha Thomas on 08-08-2024 RBC (Bld) [#/Vol] 4.26 10*6/uL 4.2-5.4 [facility] Screening total cholesterol/ high density lipoprotein (HDL) cholesterol ratioOrdered By: Pratibha Thomas on 08-08-2024 Cholesterol.total/Cholest latha in HDL [Mass ratio] 3.03 {ratio} [facility] Serum creatinine measurement (mass/volume)Ordered By: Pratibha Thomas on 08-08-2024 Creatinine [Mass/Vol] 0.76 mg/dL 0.70-1.20 [place] Serum globulin measurementOr dered By: Pratibha Thomas on 08-08-2024 Globulin (S) [Mass/Vol] 2.9 g/dL 2.2-4.2 [facility] Serum glucose measurement (m ass/volume)Ordered By: Pratibha Thomas on 08-08-2024 Glucose [Mass/Vol] 94 mg/dL 70-99 [facility] Serum or plasma alanine cote otransferase (ALT) measurementOrdered By: Pratibha Thomas on 08-08-2024 ALT [Catalytic activity/Vol] 30 U/L <35 [facility] Serum or plasma albumin junaid urement (mass/volume)Ordered By: Pratibha Thomas on 08-08-2024 Albumin [Mass/Vol] 4.7 g/dL 3.5-5.0 [facility] Serum or plasma albumin/glob ulin mass ratioOrdered By: Pratibha Thomas on 08-08-2024 Albumin/Globulin [Mass ratio] 1.6 {ratio} 0.9-2.4 [facility] Serum or plasma alkaline oly sphatase measurementOrdered By: Pratibha Thomas on 08-08-2024 ALP [Catalytic activity/Vol] 62 U/L 35-104 [facility] Serum or plasma calcium junaid urement (mass/volume)Ordered By: Pratibha Thomas on 08-08-2024 Calcium [Mass/Vol] 9.4 mg/dL 7.6-11.0 [facility] Serum or plasma cholesterol in HDL measurement (mass/volume)Ordered By: Pratibha Thomas on 08-08-2024 Cholesterol in HDL [Mass/Vol] 74 mg/dL >40 [facility] Comment on above: National Cholesterol Education Program (NCEP) guidelines:<40 mg/dL: Low HDL-cholesterol (major risk factor for CHD)>= 60 mg/dL: High HDL-cholesterol (negative risk factor for CHD)HDL-cholesterol is affected by a number of factors, e.g. smoking, exercise, hormones, sex and age. Serum or plasma cholesterol measurement (mass/volume)Ordered By: Pratibha Thomas on 08-08-2024 Cholesterol [Mass/Vol] 224 mg/dL High <201 [facility] Comment on above: Cholesterol level, D esirable <200 mg/dLBorderline high cholesterol 200-239 mg/dLHigh cholesterol >=240 mg/dLRecommendations of the NCEP Adult Treatment Panel for the following risk-cutoff thresholds for the [place] population. Serum or plasma thyroperoxid ase antibody assay (units/volume)Ordered By: Pratibha Thomas on 08-08-2024 TPO Ab Qn [IU]/mL 0-34 [facility] Comment on above: Performed at: [address] Director: John Phillips PhD, Phone: [phone] Serum or plasma urea nitroge n measurement (mass/volume)Ordered By: Pratibha Thomas on 08-08-2024 Urea nitrogen [Mass/Vol] 9 mg/dL 4-19 [facility] Sodium levelOrdered By: Maria Del Rosario Thomas on 08-08-2024 Sodium [Moles/Vol] 141 mmol/L 133-145 [facility] T4 Free Directon 08-08-2024 T4 FREE DIRECT 1.40 ng/dL Normal 0.76-1.46 [facility] Comment on above: Performed By: #### L 506.1001, L500.4050, L100.0100, L506.0400, L500.4100, L501.9520 #### [facility] [address] [place], [place], [id number] T4 freeOrdered By: Pratibha farmer on 08-08-2024 Free T4 [Mass/Vol] 1.40 ng/dL 0.76-1.46 [facility] TSH DL <= 0.005 mIU/L QnOrde red By: Pratibha Thomas on 08-08-2024 TSH Qn 1.690 uIU/mL 0.300-4.200 [facility] Thyroid Stim Hormone (TSH)on 08-08-2024 TSH 1.690 uIU/mL Normal 0.300-4.200 [facility] Comment on above: Performed By: #### L 506.1001, L500.4050, L100.0100, L506.0400, L500.4100, L501.9520 #### [facility] [address] [place], [place], [id number] Total proteinOrdered By: You Thomas on 08-08-2024 Protein [Mass/Vol] 7.6 g/dL 5.9-8.4 [facility] Triglycerides measurementOrd ered By: Pratibha Thomas on 08-08-2024 Triglyceride [Mass/Vol] 57 mg/dL <199 [facility] Comment on above: The drugs N-Acetylcy steine and Metamizole may falsely depress this assay. Normal range: <150 mg/dLBorderline High: 150-199 mg/dLHigh: 200-499 mg/dLVery High: >500 mg/dL Vitamin D,25 Hydroxyon 08-08 Vitamin D 25-OH 27.6 ng/mL Low 30-100 [facility] Comment on above: Result Comment: Vane min D Status Deficiency: <20 ng/mL (50nmol/L) Insufficiency: 20-30 ng/mL (50-75 nmol/L) Sufficiency: 30-100 ng/mL (75-250 nmol/L) Toxicity: >100 ng/mL (>250 nmol/L) Performed By: #### L 506.1001, L500.4050, L100.0100, L506.0400, L500.4100, L501.9520 #### [facility] [address] [place], [place], [id number] White blood cell (WBC) count Ordered By: Pratibha Thomas on 08-08-2024 WBC (Bld) [#/Vol] 3.5 10*3/uL Low 4.4-11.0 [facility] Absolute lymphocyte countOrd ered By: Cande Yousif on 08-18-2022 Lymphocytes Auto (Unsp spec) [#/Vol] 0.96 10*3/uL 0.83-4.51 [facility] Basophil percentageOrdered B y: Cande Yousif on 08-18-2022 Basophils/100 WBC (Bld) 0.4 % 0-1 [facility] Bilirubin [Mass/Vol] 0.80 mg/dL 0.20-1.00 [facility] Comment on above: For patients on eltr ombopag therapy, use of Dimension [place] TBIL is not recommended. Chloride [Moles/Vol] 105 mmol/L 98-107 [facility] Cholesterol [Mass/Vol] 205 mg/dL <200 [facility] Comment on above: <200 mg/dL Desirable 200-240 mg/dL Borderline >240 mg/dL High Risk Eosinophils/100 WBC (Bld) 1.3 % 0-5 [facility] Glucose [Mass/Vol] 87 mg/dL 74-106 [facility] Neutrophils (Bld) [#/Vol] 3.9 10*3/uL 2.0-7.7 [facility] Neutrophils/100 WBC (Bld) 74.5 % 47-70 [facility] Potassium [Moles/Vol] 3.8 mmol/L 3.5-5.1 [place] Protein [Mass/Vol] 7.6 g/dL 6.4-8.2 [facility] Sodium [Moles/Vol] 139 mmol/L 136-145 [facility] Triglyceride [Mass/Vol] 75 mg/dL <199 [facility] Comment on above: The drugs N-Acetylcy steine and Metamizole may falsely depress this assay.Serum Triglycerides Reference Interval Normal <150 mg/dL Borderline high 150 - 199 mg/dL High 200 - 499 mg/dL Very High > or = 500 mg/dL WBC (Bld) [#/Vol] 5.2 10*3/uL 4.4-11.0 [facility] Blood erythrocytes count (nu mber/volume)Ordered By: Cande Yousif on 08-18-2022 RBC (Bld) [#/Vol] 3.97 10*6/uL 4.2-5.4 [facility] Blood hemoglobin measurement (mass/volume)Ordered By: [place] creeknasir Yousif on 08-18-2022 Hemoglobin (Bld) [Mass/Vol] 12.9 g/dL 12.0-15.0 [facility] Blood lymphocytes/100 leukoc ytesOrdered By: roseblack creeknasir Yousif on 08-18-2022 Lymphocytes/100 WBC (Bld) 18.4 % 19-41 [facility] Blood monocytes/100 leukocyt esOrdered By: roseblack creeknasir Yousif on 08-18-2022 Monocytes/100 WBC (Bld) 5.2 % 0-10 [facility] Blood platelet mean volumeOr dered By: Cande Yousif on 08-18-2022 Platelet mean volume (Bld) [Entitic vol] 10.1 fL 6.2-12.0 [facility] Determination of erythrocyte mean corpuscular volume (MCV)Ordered By: Cande Yousif on 08-18-2022 MCV (RBC) [Entitic vol] 93.5 fL 81-99 [facility] Hematocrit Auto (Bld) [Volum e fraction]Ordered By: Cande Yousif on 08-18-2022 Hematocrit (Bld) [Volume fraction] 37.1 % 37-47 [facility] Laboratory - Chemistry and C hemistry - challengeOrdered By: Cande Yousif on 08-18-2022 ALP [Catalytic activity/Vol] 67 U/L 45-117 [facility] ALT [Catalytic activity/Vol] 30 U/L 13-56 [facility] CO2 [Moles/Vol] 28.0 mmol/L 21.0-32.0 [facility] Free T4 [Mass/Vol] 1.09 ng/dL 0.76-1.46 [facility] Globulin (S) [Mass/Vol] 3.6 g/dL 2.2-4.2 [facility] Urea nitrogen/Creatinine [Mass ratio] 7.2 mg/mg 10-20 [facility] Laboratory - Hematology and Cell countsOrdered By: Cande Yousif on 08-18-2022 Erythrocyte distribution width (RBC) [Entitic vol] 44.0 fL 35.1-43.9 [facility] Erythrocyte distribution width (RBC) [Ratio] 13.0 % 11.6-14.6 [facility] Immature granulocytes/100 WBC (Bld) 0.200 % 0.0-0.9 [facility] Comment on above: IG% - Immature Granu locytes (promyelocytes, myelocytes and metamyelocytes) > 1% indicates that a LEFT SHIFT is Present. MCH (RBC) [Entitic mass] 32.5 pg 27.0-32.0 [facility] Nucleated RBC/100 WBC (Bld) [Ratio] 0 % 0-5 [facility] MCHC Auto (RBC) [Mass/Vol]Or dered By: Cande Yousif on 08-18-2022 MCHC (RBC) [Mass/Vol] 34.8 g/dL 32-36 [place] No Panel InformationOrdered By: Cande Yousif on 08-18-2022 Estimated GFR (MDRD) Amer 100 mL/min >60 [facility] Comment on above: GFR Calc Estimated GFR (MDRD) Non-Af Amer 83 mL/min >60 [facility] Comment on above: Non- GFR Calc Thyroid Stimulating Hormone (TSH) 1.93 uIU/mL 0.358-3.74 [facility] Platelets bldOrdered By: Andrey Yousif on 08-18-2022 Platelets (Bld) [#/Vol] 256 10*3/uL 150-450 [facility] Serum or plasma albumin junaid urement (mass/volume)Ordered By: Cande Yousif on 08-18-2022 Albumin [Mass/Vol] 4.0 g/dL 3.2-5.0 [facility] Serum or plasma albumin/glob ulin mass ratioOrdered By: Cande Yousif on 08-18-2022 Albumin/Globulin [Mass ratio] 1.1 {ratio} 0.9-2.4 [facility] Serum or plasma calcium junaid urement (mass/volume)Ordered By: Cande Yousif on 08-18-2022 Calcium [Mass/Vol] 9.2 mg/dL 8.5-10.1 [facility] Serum or plasma cholesterol in HDL measurement (mass/volume)Ordered By: Cande Yousif on 08-18-2022 Cholesterol in HDL [Mass/Vol] 76 mg/dL >40 [facility] Comment on above: The drugs N-Acetylcy steine and Metamizole may falsely depress this assay. Reference Range HDL <40 mg/dL Low HDL Cholesterol HDL >or= 60 mg/dL High HDL Cholesterol Serum or plasma cholesterol in VLDL measurement (mass/volume)Ordered By: Cande Yousif on 08-18-2022 Cholesterol in VLDL [Mass/Vol] 15 mg/dL 5-40 [facility] Serum or plasma creatinine m easurement (mass/volume)Ordered By: Cande Yousif on 08-18-2022 Creatinine [Mass/Vol] 0.83 mg/dL 0.55-1.02 [place] Comment on above: The validity of the calculated GFR & GFRAA in patients over 70 years has not been determined. Clinical correlation is essential. Serum or plasma low density lipoprotein (LDL) cholesterol measurement (mass/volume)Ordered By: Cande Yousif on 08-18-2022 Cholesterol in LDL [Mass/Vol] 114 mg/dL 0-130 [facility] Serum or plasma urea nitroge n measurement (mass/volume)Ordered By: Cande Yousif on 08-18-2022 Urea nitrogen [Mass/Vol] 6 mg/dL 7-18 [facility] Thin prep Papanicolaou smear with manual screeningOrdered By: Cande Yousif on 08-18-2022 Thin prep Papanicolaou smear with manual screening 25 U/L 15-37 [facility] Thin prep Papanicolaou smear with manual screening 6 5-15 [facility] Absolute lymphocyte counton 07-08-2021 Lymphocytes Auto (Unsp spec) [#/Vol] 0.91 10*3/uL 0.83-4.51 [facility] Work Phone: [phone] Basophil percentageon 2021 Basophils/100 WBC (Bld) 0.4 % 0-1 [facility] Work Phone: [phone] Bilirubin [Mass/Vol] 0.60 mg/dL 0.20-1.00 [facility] Work Phone: [phone] Comment on above: For patients on eltr ombopag therapy, use of Dimension [place] TBIL is not recommended. Chloride [Moles/Vol] 102 mmol/L 98-107 [facility] Work Phone: Cholesterol [Mass/Vol] 234 mg/dL <200 [facility] Work Phone: Comment on above: <200 mg/dL Desirable 200-240 mg/dL Borderline >240 mg/dL High Risk Eosinophils/100 WBC (Bld) 1.5 % 0-5 [facility] Work Phone: [phone] Glucose [Mass/Vol] 84 mg/dL 74-106 [facility] Work Phone: [phone] Neutrophils (Bld) [#/Vol] 4.0 10*3/uL 2.0-7.7 [facility] Work Phone: [phone] Neutrophils/100 WBC (Bld) 75.5 % 47-70 [facility] Work Phone: [phone] Potassium [Moles/Vol] 3.9 mmol/L 3.5-5.1 [place] Work Phone: [phone] Protein [Mass/Vol] 7.9 g/dL 6.4-8.2 [facility] Work Phone: [phone] Sodium [Moles/Vol] 138 mmol/L 136-145 [facility] Work Phone: [phone] Triglyceride [Mass/Vol] 79 mg/dL [facility] Work Phone: Comment on above: The drugs N-Acetylcy steine and Metamizole may falsely depress this assay.Serum Triglycerides Reference Interval Normal <150 mg/dL Borderline high 150 - 199 mg/dL High 200 - 499 mg/dL Very High > or = 500 mg/dL WBC (Bld) [#/Vol] 5.4 10*3/uL 4.4-11.0 [facility] Work Phone: Blood erythrocytes count (nu mber/volume)on 07-08-2021 RBC (Bld) [#/Vol] 4.14 10*6/uL 4.2-5.4 [place] [facility] Work Phone: Blood hemoglobin measurement (mass/volume)on 07-08-2021 Hemoglobin (Bld) [Mass/Vol] 13.3 g/dL 12.0-15.0 [facility] Work Phone: Blood lymphocytes/100 leukoc yteson 07-08-2021 Lymphocytes/100 WBC (Bld) 17.0 % 19-41 [facility] Work Phone: Blood monocytes/100 leukocyt eson 07-08-2021 Monocytes/100 WBC (Bld) 5.0 % 0-10 [facility] Work Phone: Blood platelet mean volumeon 07-08-2021 Platelet mean volume (Bld) [Entitic vol] 10.4 fL 6.2-12.0 [facility] Work Phone: Determination of erythrocyte mean corpuscular volume (MCV)on 07-08-2021 MCV (RBC) [Entitic vol] 94.2 fL 81-99 [facility] Work Phone: Hematocrit Auto (Bld) [Volum e fraction]on 07-08-2021 Hematocrit (Bld) [Volume fraction] 39.0 % 37-47 [facility] Work Phone: Laboratory - Chemistry and C hemistry - challengeon 07-08-2021 ALP [Catalytic activity/Vol] 75 U/L 45-117 [facility] Work Phone: ALT [Catalytic activity/Vol] 35 U/L 13-56 [facility] Work Phone: CO2 [Moles/Vol] 31.0 mmol/L 21.0-32.0 [facility] Work Phone: Globulin (S) [Mass/Vol] 3.7 g/dL 2.2-4.2 [facility] Work Phone: Urea nitrogen/Creatinine [Mass ratio] 11.5 mg/mg 10-20 [facility] Work Phone: [phone] Laboratory - Hematology and Cell countson 07-08-2021 Erythrocyte distribution width (RBC) [Entitic vol] 43.0 fL 35.1-43.9 [facility] Work Phone: Erythrocyte distribution width (RBC) [Ratio] 12.5 % 11.6-14.6 [facility] Work Phone: Immature granulocytes/100 WBC (Bld) 0.600 % 0.0-0.9 [facility] Work Phone: Comment on above: IG% - Immature Granu locytes (promyelocytes, myelocytes and metamyelocytes) > 1% indicates that a LEFT SHIFT is Present. MCH (RBC) [Entitic mass] 32.1 pg 27.0-32.0 [facility] Work Phone: Nucleated RBC/100 WBC (Bld) [Ratio] 0 % 0-5 [facility] Work Phone: MCHC Auto (RBC) [Mass/Vol]on 07-08-2021 MCHC (RBC) [Mass/Vol] 34.1 g/dL 32-36 [place] Work Phone: No Panel Informationon 07-08 Estimated GFR (MDRD) Amer 108 mL/min >60 [facility] Work Phone: Comment on above: GFR Calc Estimated GFR (MDRD) Non-Af Amer 89 mL/min >60 [facility] Work Phone: Comment on above: Non- GFR Calc Platelets bldon 07-08-2021 Platelets (Bld) [#/Vol] 283 10*3/uL 150-450 [facility] Work Phone: Serum or plasma albumin junaid urement (mass/volume)on 07-08-2021 Albumin [Mass/Vol] 4.2 g/dL 3.2-5.0 [facility] Work Phone: Serum or plasma albumin/glob ulin mass ratioon 07-08-2021 Albumin/Globulin [Mass ratio] 1.1 {ratio} 0.9-2.4 [facility] Work Phone: Serum or plasma calcium junaid urement (mass/volume)on 07-08-2021 Calcium [Mass/Vol] 9.0 mg/dL 8.5-10.1 [facility] Work Phone: Serum or plasma cholesterol in HDL measurement (mass/volume)on 07-08-2021 Cholesterol in HDL [Mass/Vol] 70 mg/dL [facility] Work Phone: Comment on above: The drugs N-Acetylcy steine and Metamizole may falsely depress this assay. Reference Range HDL <40 mg/dL Low HDL Cholesterol HDL >or= 60 mg/dL High HDL Cholesterol Serum or plasma cholesterol in VLDL measurement (mass/volume)on 07-08-2021 Cholesterol in VLDL [Mass/Vol] 16 mg/dL 5-40 [facility] Work Phone: Serum or plasma creatinine m easurement (mass/volume)on 07-08-2021 Creatinine [Mass/Vol] 0.78 mg/dL 0.55-1.02 [place] Work Phone: Comment on above: The validity of the calculated GFR & GFRAA in patients over 70 years has not been determined. Clinical correlation is essential. Serum or plasma low density lipoprotein (LDL) cholesterol measurement (mass/volume)on 07-08-2021 Cholesterol in LDL [Mass/Vol] 148 mg/dL 0-130 [facility] Work Phone: Serum or plasma urea nitroge n measurement (mass/volume)on 07-08-2021 Urea nitrogen [Mass/Vol] 9 mg/dL 7-18 [facility] Work Phone: Thin prep Papanicolaou smear with manual screeningon 07-08-2021 Thin prep Papanicolaou smear with manual screening 20 U/L 15-37 [facility] Work Phone: Thin prep Papanicolaou smear with manual screening 5 5-15 [facility] Work Phone: MRI BRAIN WO/W IVCONon 05-16 MRI BRAIN WO/W IVCON * * *Final Report* * * DATE OF EXAM: May 16 2021 4:29PM [facility] 0295 - MRI BRAIN WO/W IVCON / PROCEDURE REASON: R25.1 TREMOR, UNSPEC; G83.21 MONOPLEGIA OF UPPER LIMB AFFECTING RIGHT DOMINANT S * * * * Physician Interpretation * * * * EXAMINATION: MRI BRAIN WO/W IVCON, MRI CERVICAL SPINE WO/W IVCON HISTORY: R25.1 TREMOR, UNSPEC; G83.21 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 RESULT: BRAIN MRI FINDINGS: Acute Change: No evidence of an acute intracranial process. Hemorrhage: No evidence of prior parenchymal hemorrhage on the susceptibility weighted sequences. Mass Lesion/ Mass Effect: No evidence of an intracranial mass or extra-axial fluid collection. No significant mass effect. There is no evidence of abnormal intracranial enhancement. There is no evidence of herniation. Chronic Change: The white matter is within normal limits of signal intensity for age. Parenchyma: No significant volume loss for age. The brain parenchyma is otherwise within normal limits of signal intensity and morphology. Ventricles: Normal caliber and morphology. Skull Base: Hypothalamic and pituitary region are grossly normal. Craniocervical junction is normal. No significant marrow replacement process. Vasculature: Major intracranial arterial structures and dural venous sinuses demonstrate typical flow voids, suggesting patency by spin echo criteria. Other: The visualized paranasal sinuses and mastoid air cells are clear. The orbits and extracranial soft tissues are unremarkable. CERVICAL SPINE FINDINGS: Counting reference: Craniocervical junction. Localizer images: No significant findings. Alignment: Alignment is anatomic. Craniocervical junction: Craniocervical junction is normal. Cord: The visualized cord is within normal limits of signal intensity and morphology. Bone marrow signal/fracture: No evidence of pathologic marrow infiltration. No evidence of prior fracture. Cervical soft tissues: The paraspinal soft tissues are within normal limits. Enhancement: There is no evidence of abnormal enhancement in the cervical spine. C2-C3: Canal and foramina are patent. C3-C4: Canal and foramina are patent. C4-C5: Canal and foramina are patent. C5-C6: There is mild bilateral uncovertebral osteophytes without evidence significant spinal canal stenosis or neural foraminal narrowing. C6-C7: Are mild bilateral uncovertebral osteophytes without evidence significant spinal canal stenosis or neural foraminal narrowing. C7-T1: Canal and foramina are patent. IMPRESSION: No evidence of an acute infarction, intracranial hemorrhage, intracranial mass lesion or abnormal intracranial enhancement. No evidence of abnormal cord signal or abnormal enhancement in the cervical spine. No evidence of high-grade spinal canal stenosis or neural foraminal narrowing in the cervical spine. 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 RESULT: BRAIN MRI FINDINGS: Acute Change: No evidence of an acute intracranial process. Hemorrhage: No evidence of prior parenchymal hemorrhage on the susceptibility weighted sequences. Mass Lesion/ Mass Effect: No evidence of an intracranial mass or extra-axial fluid collection. No significant mass effect. There is no evidence of abnormal intracranial enhancement. There is no evidence of herniation. Chronic Change: The white matter is within normal limits of signal intensity for age. Parenchyma: No significant volume loss for age. The brain parenchyma is otherwise within normal limits of signal intensity and morphology. Ventricles: Normal caliber and morphology. Skull Base: Hypothalamic and pituitary region are grossly normal. Craniocervical junction is normal. No significant marrow replacement process. Vasculature: Major intracranial arterial structures and dural venous sinuses demonstrate typical flow voids, suggesting patency by spin echo criteria. Other: The visualized paranasal sinuses and mastoid air cells are clear. The orbits and extracranial soft tissues are unremarkable. CERVICAL SPINE FINDINGS: Counting reference: Craniocervical junction. Localizer images: No significant findings. Alignment: Alignment is anatomic. Craniocervical junction: Craniocervical junction is normal. Cord: The visualized cord is within normal limits of signal intensity and morphology. Bone marrow signal/fracture: No evidence of pathologic marrow infiltration. No evidence of prior fracture. Cervical soft tissues: The paraspinal soft tissues are within normal limits. Enhancement: There is no evidence of abnormal enhancement in the cervical spine. C2-C3: Canal and foramina are patent. C3-C4: Canal and foramina are patent. C4-C5: Canal and foramina are patent. C5-C6: There is mild bilateral uncovertebral osteophytes without evidence significant spinal canal stenosis or neural foraminal narrowing. C6-C7: Are mild bilateral uncovertebral osteophytes without evidence significant spinal canal stenosis or neural foraminal narrowing. C7-T1: Canal and foramina are patent. IMPRESSION: No evidence of an acute infarction, intracranial hemorrhage, intracranial mass lesion or abnormal intracranial enhancement. No evidence of abnormal cord signal or abnormal enhancement in the cervical spine. No evidence of high-grade spinal canal stenosis or neural foraminal narrowing in the cervical spine. Manual Arts Therapist: [facility] Transcribe Date/Time: May 16 2021 4:39P Dictated by : CATHERINE HOLCOMB MD This examination was interpreted and the report reviewed and electronically signed by: CATHERINE HOLCOMB MD on May 16 2021 4:52PM EST [id number] Normal [facility] No Panel Informationon 04-23 Vitamin D 25-Hydroxy 23.4 ng/mL [facility] Work Phone: Comment on above: Vitamin D 25(OH) Sta tus Range Deficiency <20 ng/mL (50nmol/L) Insufficiency 20 - 30 ng/mL (50 - 75 nmol/L) Sufficiency 30 - 100 ng/mL (75 - 250 nmol/L) Toxicity >100 ng/mL (>250 nmol/L) CNNURSEon 06-30-2020 CNNURSE Nurse Visit (COVAMD) ---- KIERAN QIU ([id number]) 1985 F Date Time Provider Department 06/30/20 3:20 PM COVID VACCINE [facility] During your visit today, we recorded the following information about you: Referring Provider: RANI ARMANDO JR [[id number]] Allergies As of Date: 06/30/2020 Noted Allergy Reaction DOXYCYCLINE 09/30/2014 14 - Other: See Comments Comments: hot and tingly hands Date Reviewed: 06/24/2016 Reviewed by: Jake Melton - Fully Assessed Order(s):PFIZER SARS-COV-2 VACCINE 2D DOSE APPT [[id number]] Order #: [id number] [employer] COVID-19 VACCINE [[id number]] Order #: [id number] Prescriptions as of 06/30/2020 Sig: FLUCONAZOLE 200 MG TABLET Take 1 tablet by mouth once d* Problem List As Of Date 06/30/2020 Noted Resolved Hot flashes [R23.2] 03/28/2011 Palpitation [R00.2] 03/28/2011 Supervision of other normal [Z34.80] 03/28/2011 05/29/2012 Abnormal US [O28.3] 06/01/2011 05/29/2012 History of recurrent miscarriages, 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 Encounter Status:Closed by CLOSURE AudioBeta, ADMINISTRATIVE on 07/01/20 [facility] CNNURSEon 06-09-2020 CNNURSE Nurse Visit (COVAMD) ---- KIERAN QIU ([id number]) 1985 F Date Time Provider Department 06/09/20 3:20 PM COVID VACCINE VALLES COVAMD During your visit today, we recorded the following information about you: Referring Provider: RANI ARMANDO JR [[id number]] Allergies As of Date: 06/09/2020 Noted Allergy Reaction DOXYCYCLINE 09/30/2014 14 - Other: See Comments Comments: hot and tingly hands Date Reviewed: 06/24/2016 Reviewed by: Jake Melton - Fully Assessed Order(s):[employer] COVID-19 VACCINE [[id number]] Order #: [id number] PFIZER SARS-COV-2 VACCINE 2D DOSE APPT [[id number]] Order #: [id number] FUTURE Prescriptions as of 06/09/2020 Sig: FLUCONAZOLE 200 MG TABLET Take 1 tablet by mouth once d* Problem List As Of Date 06/09/2020 Noted Resolved Hot flashes [R23.2] 03/28/2011 Palpitation [R00.2] 03/28/2011 Supervision of other normal [Z34.80] 03/28/2011 05/29/2012 Abnormal US [O28.3] 06/01/2011 05/29/2012 History of recurrent miscarriages, 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 Delores García requests that Kieran be evaluated due to short cervix. Renetta is a 33 y.o. at 19w6d gestation who presents for evaluation of short cervix, which was found incidentally on anatomy ultrasound on Monday. Cervical length was noted to be 2.2 cm. This finding was discussed telephonically by myself. We discussed starting vaginal progesterone, which she started on Monday. Patient did state some discharge from the progesterone. Otherwise, she denies complaints. Prior was discontinued due to trisomy 18. Fetus did have DORV. Patient has already had cell free DNA, which was low risk. OB History Para Term AB Living 4 0 0 0 3 0 SAB TAB Ectopic Multiple Live Births 1 2 0 0 0 # Outcome Date GA Lbr Manny/2nd Weight Sex Delivery Anes PTL Lv 4 Current 3 TAB Comments: D&E with Tri 18 2 SAB Comments: D&C 1 TAB PMedHx: Lichen sclerosis (perineum), short cervix, h/o heart murmur. PSurgHx: D&C (miscarriage), D&E (T18), LEEP, wisdom teeth extraction, toe surgery FMHx: Diabetes (Mom and Dad). FOB had hole in heart. Prior child with T18 and DORV Denies hypertension, or clotting disorders. 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 Former tobacco use. Denies alcohol and drug use. Patient Active Problem List Diagnosis Family history of trisomy 18 Family history of congenital heart defect Short cervix affecting History of LEEP (loop electrosurgical excision procedure) of cervix complicating Review of Systems All other systems reviewed and are negative. Physical Exam Vitals: 09/03/18 0746 BP: 108/70 Weight: 73.3 kg (161 lb 8 oz) FHT: Positive Ultrasound Results: 1. Limited ultrasound for transvaginal cervical length only. Anatomic survey was not the focus of today's ultrasound. 2. The maternal cervix measured 26 mm, which is slightly longer than prior ultrasound. Impression: Kieran is a 33 y.o. female who is at 19w6d gestation. 1. Short Cervix. I discussed risks of with a short cervix. Having had a LEEP by itself has not shown to increase risk. However, with a cervical length <2.5 cm, this places the patient 30% increased risk of . Vaginal progesterone compared to placebo for short cervix in randomized control trials has decreased this risk by 50%. We discussed these options over the phone Monday and patient wished to pursue vaginal progesterone. Will continue vaginal progesterone until 36 weeks. 2. Prior child with Trisomy 18. Patient has had cell free DNA, which was low risk. No gross anomalies were noted on ultrasound. 3. Family history of congenital heart defect. We discussed 2-3% risk of congenital heart defects. At times, these can be related to genetic issues. I advised that patient undergo echocardiogram. Recommendations: 1. Continue vaginal progesterone until 36 weeks. 2. Repeat CL was scheduled on September 13. 3. echocardiogram was scheduled September 13. 4. Additional follow up as clinically indicated. The total patient time of the visit was 30 minutes, of which greater than 50% of the time was spent counseling and coordinating care. Normal [facility] Vital Signs Date Time Vital Sign Value Performing Clinician Anishai omer 08-08-2024 10:49-0400 Body height 160.[address] Cande Yousif MD Work Phone: [facility] 08-08-2024 10:49-0400 Body mass index (BMI) [Ratio] 26.2 kg/m2 Dr. Cande Yousif MD Work Phone: [facility] 08-08-2024 10:49-0400 Body weight 67.[address] Cande Yousif MD Work Phone: [facility] 08-08-2024 10:49-0400 Diastolic blood pressure 84 mm[Hg] Dr. Cande Yousif MD Work Phone: [facility] 08-08-2024 10:49-0400 Systolic blood pressure 128 mm[Hg] Dr. Cande Yousif MD Work Phone: [facility] 08-18-2022 14:34-0400 Body height 160.[address] Cande Yousif Work Phone: [facility] 08-18-2022 14:34-0400 Body mass index (BMI) [Ratio] 27.3 kg/m2 Dr. Cande Yousif Work Phone: [facility] 08-18-2022 14:34-0400 Body temperature 98.7 [degF] Dr. Cande Yousif Work Phone: [facility] 08-18-2022 14:34-0400 Body weight 69.[address] Cande Yousif Work Phone: [facility] 08-18-2022 14:34-0400 Diastolic blood pressure 74 mm[Hg] Dr. Cande Yousif Work Phone: [facility] 08-18-2022 14:34-0400 Heart rate 56 /min Dr. Cande Yousif Work Phone: [facility] 08-18-2022 14:34-0400 Respiratory rate 14 /min Dr. Cande Yousif Work Phone: [facility] 08-18-2022 14:34-0400 SaO2% (BldA) [Mass fraction] 99 % Dr. Cande Yousif Work Phone: [facility] 08-18-2022 14:34-0400 Systolic blood pressure 120 mm[Hg] Dr. Cande Yousif Work Phone: [facility] 06-23-2022 10:01-0400 Body mass index (BMI) [Ratio] 27.3 kg/m2 Dr. Cande Yousif Work Phone: [facility] 06-23-2022 10:01-0400 Body weight 69.[address] Cande Yousif Work Phone: [facility] 06-23-2022 10:01-0400 Diastolic blood pressure 64 mm[Hg] Dr. Cande Yousif Work Phone: [facility] 06-23-2022 10:01-0400 Systolic blood pressure 112 mm[Hg] Dr. Cande Yousif Work Phone: [facility] 07-08-2021 13:52-0400 Body height 160.[address] Cande Yousif Work Phone: [facility] Work Phone: 07-08-2021 13:52-0400 Body mass index (BMI) [Ratio] 28.2 kg/m2 Dr. Cadne Yousif Work Phone: [facility] Work Phone: 07-08-2021 13:52-0400 Body temperature 98.1 [degF] Dr. Cande Yousif Work Phone: [facility] Work Phone: 07-08-2021 13:52-0400 Body weight 72.[address] Cande Yousif Work Phone: [facility] Work Phone: 07-08-2021 13:52-0400 Diastolic blood pressure 70 mm[Hg] Dr. Cande Yousif Work Phone: [facility] Work Phone: 07-08-2021 13:52-0400 Heart rate 87 /min Dr. Cande Yousif Work Phone: [facility] Work Phone: 07-08-2021 13:52-0400 Respiratory rate 16 /min Dr. Cande Yousif Work Phone: [facility] Work Phone: 07-08-2021 13:52-0400 SaO2% (BldA) [Mass fraction] 98 % Dr. Cande Yousif Work Phone: [facility] Work Phone: 07-08-2021 13:52-0400 Systolic blood pressure 110 mm[Hg] Dr. Cande Yousif Work Phone: [facility] Work Phone: 04-23-2021 07:04-0500 Body height 160.[address] Cande Yousif Work Phone: [facility] Work Phone: 04-23-2021 07:04-0500 Body mass index (BMI) [Ratio] 28.5 kg/m2 Dr. Cande Yousif Work Phone: [facility] Work Phone: 04-23-2021 07:04-0500 Body temperature 98.7 [degF] Dr. Cande Yousif Work Phone: [facility] Work Phone: 04-23-2021 07:04-0500 Body weight 73.[address] Cande Yousif Work Phone: [facility] Work Phone: 04-23-2021 07:04-0500 Diastolic blood pressure 88 mm[Hg] Dr. Cande Yousif Work Phone: [facility] Work Phone: 04-23-2021 07:04-0500 Heart rate 91 /min Dr. Cande Yousif Work Phone: [facility] Work Phone: 04-23-2021 07:04-0500 Respiratory rate 16 /min Dr. Cande Yousif Work Phone: [facility] Work Phone: 04-23-2021 07:04-0500 SaO2% (BldA) [Mass fraction] 99 % Dr. Cande Yuosif Work Phone: [facility] Work Phone: 04-23-2021 07:04-0500 Systolic blood pressure 140 mm[Hg] Dr. Cande Yousif Work Phone: [facility] Work Phone: Encounters Encounter Date Encounter Type Care Provider Facility Start: 12-19-2024 ambulatory Cande Yousif Facili ty:[facility] Start: 10-11-2024 Encounter for genera l adult medical examination without abnormal findings [facility] Start: 08-22-2024 End: 08-22-[address] Cande Yousif MD Work Phone: [facility] Start: 08-22-2024 End: 08-22-2024 Patient encounter procedure Pr[facility]ibha [facility] Work Phone: Start: 08-22-2024 End: 08-22-2024 ambulatory Cande Yousif Facility:[facility] Start: 08-08-2024 End: 08-08-2024 Patient encounter procedure Pratibha [facility] -[facility] Work Phone: Start: 08-08-2024 End: 08-08-2024 Patient encounter status [facility]ibha [facility] Start: 08-08-2024 End: 08-08-[address] Cande Yousif MD Work Phone: [facility] Work Phone: Start: 08-08-2024 End: 08-08-2024 ambulatory Pratibha Thomas Facility:[facility] Start: 08-18-2022 End: 08-18-[address] Cande Yousif Work Phone: [facility] Work Phone: Start: 08-18-[address] Cande Yousif Work Phone: [facility] Start: 08-18-2022 End: 08-18-2022 Encounter for general adult medical examination without abnormal findings Dr. Cande Yousif Work Phone: [facility] Start: 08-18-2022 End: 08-18-[address] Cande Yousif Work Phone: [facility] Work Phone: Start: 06-23-2022 End: 06-23-[address] Cande Yousif Work Phone: [facility] Work Phone: Start: 04-21-2022 End: 04-21-2022 ambulatory [facility] [facility] Work Phone: Start: 04-21-2022 End: 04-21-2022 Patient encounter procedure [facility], [facility] Start: 07-08-2021 End: 07-08-[address] Cande Yousif Work Phone: [facility] Internal Medicine Start: 05-16-2021 End: 05-16-2021 Subsequent hospital visit by physician [facility] (1.5t) Radiology Comment on above: Tremor, unspecified [R25.1] Start: 04-29-2021 End: 04-29-[address] Cande Yousif Work Phone: [facility]trasound, [facility] Start: 04-23-2021 End: 04-23-[address] Cande Yousif Work Phone: [facility]-Laboratory, [facility] Procedures Date Procedure Procedure Detail Performing Clinician Start: 08-22-[address] Stephy Yousif MD Work Phone: Start: 08-08-2024 Vitamin D, 25-hydrox y measurement Dr. Cande Yousif MD Work Phone: Comment on above: Vitamin D StatusDefi ciency: <20 ng/mL (50nmol/L)Insufficiency: 20-30 ng/mL (50-75 nmol/L)Sufficiency: 30-100 ng/mL (75-250 nmol/L)Toxicity: >100 ng/mL (>250 nmol/L) Start: 04-21-2022 US scan of thyroid Start: 04-29-2021 US scan of thyroid Dr. Cande Yousif Work Phone: Plan of Treatment Date Care Activity Detail Author Start: 06-24-2026 Urine microalbumin profile DTAP,TDAP,TD (3 - Td or Tdap) [facility] Start: 08-08-2024 CBC W Auto Differential panel - Blood [facility] Start: 08-08-2024 Comprehensive metabolic 2000 panel - Serum or Plasma [facility] Start: 08-08-2024 Lipid 1996 panel - Serum or Plasma [facility] Start: 08-08-2024 T4 free measurement [facility] Start: 08-08-2024 Thyroid stimulating hormone measurement [facility] Start: 08-08-2024 Vitamin D, 1,25-dihydroxy measurement [facility] Start: 10-14-2021 Influenza vaccination INFLUENZA (Season Ended) [facility] Start: 04-23-2021 Patient referral [facility] Work Phone: Start: 11-30-2020 COVID-19 VACCINE (3 - Booster for Pfizer series) COVID-19 VACCINE (3 - Booster for Pfizer series) [facility] Start: 05-29-2018 PAP TESTING PAP TESTING [facility] Start: 2016 HPV TESTING HPV TESTING [facility] Start: 2004 HEPATITIS C SCREENING HEPATITIS C SCREENING [facility] Start: 1998 Adult depression screening assessment DEPRESSION SCREENING [facility] Alanine aminotransfe rase [Enzymatic activity/volume] in Serum or Plasma [facility] Albumin [Mass/volume ] in Serum or Plasma [facility] Alkaline phosphatase [Enzymatic activity/volume] in Serum or Plasma [facility] Anion gap in Serum or Plasma [facility] Bilirubin, total measurement [facility] BUN/Creatinine ratio [facility] Calcium [Mass/volume ] in Serum or Plasma [facility] Carbon dioxide, tota l [Moles/volume] in Central venous blood [facility] Cholesterol [Mass/vo lume] in Serum or Plasma [facility] Cholesterol in HDL [Mass/volume] in Serum or Plasma [facility] Creatinine [Mass/vol ume] in Serum or Plasma [facility] Erythrocyte mean cor puscular volume determination [facility] Glucose [Mass/volume ] in Serum or Plasma [facility] Hematocrit [Volume F raction] of Blood [facility] Hemoglobin [Mass/vol ume] in Blood [facility] Leukocytes [#/volume ] in Blood [facility] Low density lipoprot ein cholesterol measurement [facility] Mean corpuscular hem oglobin concentration determination [facility] Mean corpuscular hem oglobin determination [facility] Measurement of renal function [facility] Neutrophil count [facility] Neutrophil percent differential count [facility] Patient referral [facility] Work Phone: Platelets [#/volume] in Blood [facility] Potassium measurement [facility] Red blood cell count [facility] Red cell distributio n width determination [facility] Serum chloride measurement [facility] Sodium measurement [facility] Total cholesterol:HD L ratio measurement [facility] Total protein measurement [facility] Triglycerides measurement [facility] Urea nitrogen [Mass/ volume] in Serum or Plasma [facility] US Pelvis [facility] VLDL cholesterol measurement [facility] Immunizations Immunization Date Immunization Notes Care Provider Amparo turner 06-30-2020 Covid (Internal Gaming) Dr. Cande Yousif Work Phone: [facility] Work Phone: 06-09-2020 Covid (Internal Gaming) Dr. Cande Yousif Work Phone: [facility] 10-19-2018 tetanus toxoid, redu feliz diphtheria toxoid, and acellular pertussis vaccine, adsorbed Dr. Cande Yousif Work Phone: [facility] 10-19-2018 diphtheria, tetanus toxoids and acellular pertussis vaccine, unspecified formulation Dr. Cande Yousif Work Phone: [facility] Work Phone: 06-24-2016 tetanus toxoid, redu feliz diphtheria toxoid, and acellular pertussis vaccine, adsorbed Mri (1.5t) [facility] 03-28-2011 influenza virus vaccine, unspecified formulation Mri (1.5t) [facility] 11-14-2007 tetanus toxoid, redu feliz diphtheria toxoid, and acellular pertussis vaccine, adsorbed Mri (1.5t) [facility] Payers Date Payer Category Payer Unknown [id number] 2024 Self-pay [id number] 2024 Unknown [id number] 2018 Unknown MMO MMO [employer] [id number] 2018-Present [phone] [address] [place] [address] PPO [id number] Unknown [id number] Unknown [id number] Unknown [id number] Unknown [id number] Unknown [id number] Social History Date Type Detail Facility Start: 04-23-2021 End: 08-18-2022 Tobacco smoking status NHIS Unknown if ever smoked [facility] Start: 01-19-2019 None [facility] Start: 1985 Sex Assigned At Female W [facility] Start: 02-02-2011 Tobacco smoking stat us MEIS Smokes tobacco daily [facility] Work Phone: History of tobacco use Cigarette Smoker C [facility] Work Phone: Start: 02-02-2011 Cigarettes smoked current (pack per day) - Reported 0.4 [facility] Start: 02-02-2011 Tobacco use and exposure Smokeless tobacco non-user [facility] Work Phone: Start: 06-24-2016 Alcohol intake Current drinke r of alcohol (finding) [facility] Start: 08-10-2011 History SDOH Alcohol Comment occassionally [facility] Start: 1985 Sex Assigned At Not on file [facility] Start: 05-06-2021 End: 05-16-2021 Exposure to SARS-CoV-2 (event) Not sure [facility] Start: 08-18-2022 Tobacco smoking stat us NHIS Ex-smoker (finding) [facility] Clinical Notes 06-01-2011 to 08-23-2024 Note Date & Type Note Facility 08-23-2024 Radiology Diagnostic study note [facility] Imaging Services [address] [place], [place] [address] Pelvic w/ Transvaginal MR#: [id number] Acct: [id number] Name: KIERAN QIU Rep #: [id number] : 1985 F 38 From: Jus Ellis MD PCP: Dr. Cande Yousif MD Status: R EG CLI Study:Pelvic w/ Transvaginal Date of Exam: 08/22/24 Exam# [id number] Ordering Dr: Pratibha Thomas PIPE TESTING TECHNICIAN-C PROCEDURE: PELVIC W/ TRANSVAGINAL 08/22/2024 REASON FOR EXAM: ABNORMAL UTERINE BLEEDING TECHNIQUE: PELVIC W/ TRANSVAGINAL COMPARISON: None FINDINGS: Uterus is anteverted and measures 8.3 x 5.7 x 4.4 cm. No obvious fibroids. Endometrium measures 7.3 mm. Endometrium is hyperechoic. Cervical nabothian cysts are seen. Right ovary measures 3.9 x 3.6 x 2.2 cm. Dominant follicle measuring 1.7 x 2 x 1.7 cm is noted. No obvious adnexal lesions. Left ovary measures 3.1 x 3 x 1.9 cm. Normal blood flow. No definite adnexal lesions. Bilateral ovarian peripherally arranged follicles. No free fluid in the posterior cul-de-sac. Urinary bladder volume is 420 cc. US/Pelvic w/ Transvaginal IMPRESSION: Cervical nabothian cysts. No obvious uterine abnormalities. Right ovarian dominant follicle Bilateral ovarian small peripherally arranged follicles, fundus could suggest PCO. Please correlate clinically. Reading Location: [place] [address] CC: KAJAL Thomas; Dr. Cande Yousif MD ~ Manual Arts Therapist: Signed [facility] 08-08-2024 Evaluation note Diagnosis Onset Date Resolution Abnormal uterine bleeding acute August 08, 2024 10:37am Hypercholesteremia acute July 152024 10:37am Thyromegaly acute August 08 10:37am Encounter for routine gynecological examination noneactive July 152024 10:37am [facility] Work Phone: [phone]) 782-846004-03-2022 NoteHNO ID: [id number] Author: JOSE R Higgins Service: Radiology Author Type: Manual Arts Therapist Type: Progress Notes Filed: 05/16/2021 4:17 PM Note Text: Radiology Service Progress Note DATE OF SERVICE: May 16, 2021 TIME: 4:14 PM PATIENT IDENTITY VERIFICATION COMPLETED USING TWO (2) STANDARD IDENTIFIERS: Name and Date of confirmed by patient verbally and Name and Date of confirmed by identification band. FALL SCREENING: Has the patient had 2 falls in the last year or 1 fall with injury or currently using an Ambulatory Assistive Device (Walker, Cane, Wheelchair, Crutches, etc.)? No PATIENT GENDER DATA: Female. status: : No status: NO. PATIENT RELEVANT IMPLANT DATA REVIEWED: Yes ALLERGIES: Reviewed and unchanged CONTRAST ALLERGY: NO. EXAM: MRI - CONTRAST TYPE: GROUP II PERIPHERAL IV DATA: Ambulatory: A peripheral IV was started in the Right antecubital site with a Butterfly: 23 gauge. RADIOLOGY DEPARTMENT: MR; Exam(s) Completed: Head: Multiple Sclerosis Spine: Cervical spine SIGNATURE: JOSE R Higgins PATIENT NAME: Kieran Qiu DATE: May 16, 2021 TIME: 4:14 [facility]Mag[id number] History of Present illness Narrative* JOSE R Higgins - 05/16/2021 3:20 PM EDT Radiology Service Progress Note DATE OF SERVICE: May 16, 2021 TIME: 4:14 PM PATIENT IDENTITY VERIFICATION COMPLETED USING TWO (2) STANDARD IDENTIFIERS: Name and Date of confirmed by patient verbally and Name and Date of confirmed by identification band. FALL SCREENING: Has the patient had 2 falls in the last year or 1 fall with injury or currently using an Ambulatory Assistive Device (Walker, Cane, Wheelchair, Crutches, etc.)? No PATIENT GENDER DATA: Female. status: : No status: NO. PATIENT RELEVANT IMPLANT DATA REVIEWED: Yes ALLERGIES: Reviewed and unchanged CONTRAST ALLERGY: NO. EXAM: MRI - CONTRAST TYPE: GROUP II PERIPHERAL IV DATA: Ambulatory: A peripheral IV was started in the Right antecubital site with a Butterfly: 23 gauge. RADIOLOGY DEPARTMENT: MR; Exam(s) Completed: Head: Multiple Sclerosis Spine: Cervical spine SIGNATURE: JOSE R Higgins PATIENT NAME: Kieran Qiu DATE: May 16, 2021 TIME: 4:14 PM [facility] History of Past illness Narrative* Problem Noted Date Resolved Date Abnormal 06/01/2011 05/29/2012 Overview: Possible heart defect, small stomach bubble, bilateral choroid plexus cysts, increased risk trisomy 18- amniocentesis pending Supervision of other normal 03/28/2011 05/29/2012 documented as of this encounter (statuses as of 05/17/2021) [facility] Diagnosis Onset Date Resolution Status Paralysis of right upper extremity acute Thyroid nodule acute Tremor acute Vitamin D deficiency acute [facility] Work Phone: Evaluation note* Diagnosis Onset Date Resolution Status Paralysis of right upper extremity acute Tremor acute Vitamin D deficiency acute Thyroid nodule chronic Paralysis of right upper extremity acute Hyperlipidemia chronic Thyroid nodule chronic [facility] Work Phone: Evaluation noteNo assessment information available [facility] Work Phone: Evaluation note* Diagnosis Onset Date Resolution Status Encounter for routine gynecological examination noneactive Preventative health care acu te Screening for thyroid disorder acute Thyromegaly acute [facility] Work Phone: Evaluation note* Diagnosis Onset Date Resolution Status Admit Date Abnormal uterine bleeding acute August 08, 2024 10:37am Encounter for routine gynecological examination noneactive July 152024 10:37am [facility] Work Phone: [facility] Work Phone: [facility] Work Phone: [facility] Work Phone: Reason for referral (narrative)No reason for referral information availableResnick [facility]psych[facility] Work Phone: Reason for visit Narrative* Diagnostic Procedure Only (Routine) - Closed Specialty Diagnoses / Procedures Referred By Contac t Referred To Contact Radiology / [facility] Diagnoses MRI CERVICAL SPINE W/WO CONTRAST,[G83.21],[R25 .1],Ordering Physician Nica Gonzalez Procedures MRI WWO NEU1 B 300 Cande Yousif MD [address] [facility] [place] [address] Radio Mri [facility] [address] [place] [address] Referral ID Status Reason Start Date Expiration Date Visits Re quested Visits Authorized [id number] Closed 04/27/2021 06/11/2021 2 2 [facility] Summary Purpose Family History No Family History Records Found Relationship Condition Age at Onset Recorded Date/T jeremy grandfather Cardiac disease Unknown grandmother Malignant neoplasm of breast Unknown mother Diabetes mellitus Unknown Disorder of thyroid Unknown father Diabetes mellitus Unknown Advance Directives No Advanced Directives Records Found Advance Directive Response Recorded Date/ Time Living Will No January 18 8:49pm Power of Nuclear Radiation Engineer No January 18, 2019 8:49pm Documents on File Type Date Recorded Patient Instructional Support Assistant Expl anation Advance Directive(s) 06/24/2016 7:31 PM Chief Complaint and Reason for Visit Chief Complaint Admit Date Annual (SALES ARCHITECT) August 08, 2024 10:3 7am ABNORMAL UTERINE BLEEDING August 22 12:33pm Reason for Visit Admit Date Abnormal uterine bleeding August 08 10:37am Hypercholesteremia August 08, 2024 10:3 7am Thyromegaly August 08, 2024 10:3 7am Encounter for routine gynecological exam ination August 08, 2024 10:37am Chief Complaint LEFT ARM PARALYISIS THYROID NODULE Reason for Visit Paralysis of right u pper extremity Thyroid nodule Tremor Vitamin D deficiency Chief Complaint LEFT ARM PARALYISIS THYROID NODULE 1 W FU Reason for Visit Paralysis of right u pper extremity Tremor Vitamin D deficiency Thyroid nodule Paralysis of right upper extremity Hyperlipidemia Thyroid nodule Chief Complaint THYROID NODULE Chief Complaint Annual (SALES ARCHITECT) Annual Reason for Visit Encounter for routin e gynecological examination Preventative health care Screening for thyroid disorder Thyromegaly Chief Complaint Admit Date Annual (SALES ARCHITECT) August 08, 2024 10:3 7am Reason for Visit Admit Date Abnormal uterine bleeding August 08 10:37am Encounter for routine gynecological exam ination August 08, 2024 10:37am Additional Source Comments INFORMATION SOURCE (unrecogn ized section and content) DATE CREATED AUTHOR 09/13/2018 [facility] DATE CREATED AUTHOR AUTHOR'S ORGANIZ ATION 05/18/2021 [facility] DATE CREATED AUTHOR AUTHOR'S ORGANIZ ATION 12/14/[address] [facility] Goals (unrecognized section and content) Goals may be documented in a n alternate sectionGoals may be documented in an alternate sectionGoals may be documented in an alternate sectionGoals may be documented in an alternate sectionGoals may be documented in an alternate sectionGoals may be documented in an alternate sectionGoals may be documented in an alternate sectionGoals may be documented in an alternate section Source Comments (unrecognize d section and content) In the event this informatio n is protected by the Federal Confidentiality of Alcohol and Drug Abuse Patient Records regulations: The Federal rules restrict any use of the information to criminally investigate or prosecute any alcohol or drug abuse patient.[facility] Care Teams (unrecognized sec tion and content) Press Catcher Relationship Specialty Start Date End Date Cande Yousif MD [address] [place] [address] PCP - General Internal Medicine 04/29/21 Team Status: Active Member Role Status Dates No Primary Care Physician Family Provider Active Dr. Cande Yousif MD Primary Care Provider Active Team Status: Inactive Member Role Status Dates Dr. Cande Yousif MD Primary Care Provider, Atten ding Provider Active Team Status: Inactive Member Role Status Dates Dr. Cande Yousif MD Primary Care Provider, Refer ring Provider Active DAMARIS Blackman NPC Attending Provider Active Team Status: Inactive Member Role Status Dates Dr. Cande Yousif MD Primary Care P sivader, Attending Provider, Referring Provider Active Team Status: Inactive Member Role Status Dates Dr. Cande Yousif MD Primary Care Provider Active Start: August 08, 2024 End: August 08, 2024 Dr. Cande Yousif MD Referring Provider Active Start: August 08, 2024 End: August 08, 2024 KAJAL Miller Attending Provider Active Start: August 08, 2024 End: August 08, 2024 Team Status: Active Member Role Status Dates Dr. Cande Yousif MD Primary Care Provider Active Start: August 08, 2024 KAJAL Miller Attending Provider Active Start: August 08, 2024 KAJAL Miller Referring Provider Active Start: August 08, 2024 Team Status: Active Member Role/Relationship Status Dates Dr. Cande Yousif MD Primary Care Provider Active Team Status: Inactive Member Role/Relationship Status Dates Dr. Cande Yousif MD Primary Care Provider Active Start: August 08, 2024 End: August 08, 2024 Dr. Cande Yousif MD Referring Provider Active Start: August 08, 2024 End: August 08, 2024 KAJAL Miller Attending Provider Active Start: August 08, 2024 End: August 08, 2024 Team Status: Inactive Member Role/Relationship Status Dates Dr. Cande Yousif MD Primary Care Provider Active Start: August 08, 2024 End: August 08, 2024 KAJAL Miller Attending Provider Active Start: August 08, 2024 End: August 08, 2024 KAJAL Miller Referring Provider Active Start: August 08, 2024 End: August 08, 2024 Team Status: Inactive Member Role/Relationship Status Dates Dr. Cande Yousif MD Primary Care Provider Active Start: August 22, 2024 End: August 22, 2024 KAJAL Miller Attending Provider Active Start: August 22, 2024 End: August 22, 2024 KAJAL Miller Referring Provider Active Start: August 22, 2024 End: August 22, 2024 FOR RECORDS PERTAINING TO PATIENTS WHO ARE OR HAVE BEEN ENROLLED IN A CHEMICAL DEPENDENCY/SUBSTANCEABUSE PROGRAM, SOME INFORMATION MAY BE OMITTED. This clinical summary was aggregated from multiple sources. Caution should be exercised in using it in the provision of clinical care. This summary normalizes information from multiple sources, and as a consequence, information in this document may materially change the coding, format and clinical context of patient data. In addition, data may be omitted in some cases. CLINICAL DECISIONS SHOULD BE BASED ON THE PRIMARY CLINICAL RECORDS. [email or web address] [facility]. provides no warranty or guarantee of the accuracy or completeness of information in this document.
== END | disposition home or self-care (01) ==
LOC: LABSPEC 17:11
PROVIDERS: PCP Internal Medicine; Referring Provider Obstetrics & Gynecology; Visit Provider Obstetrics & Gynecology
DX: N93.9 Abnormal uterine and vaginal bleeding, unspecified (principal)
CPT/HCPCS: 88305

== ENCOUNTER → 2024-12-23 | Outpatient (CLI) | payer OTHER, SELFPAY ==
[2024-12-23 17:13] LABS: Hematocrit 36.2 % (37-47); Hemoglobin 12.7 g/dL (12.0-15.0); Immature Granulocytes Count 0.020 X10^3/uL (0.0-0.0); Mean Corp Hgb Conc 35.1 g/dL (32-36); Mean Corpuscular Volume 92.6 fL (81-99); Mean Platelet Vol. 10.5 fl (6.2-12.0); NRBC Flagged by Analyzer 0 % (0-5); Platelet Count 230 K/mm3 (150-450); RBC Distribution Width CV 12.6 % (11.6-14.6); RBC Distribution Width SD 42.4 fl (35.1-43.9); Red Blood Count 3.91 M/mm3 (4.2-5.4); White Blood Count 5.5 K/mm3 (4.4-11.0)
--- OUTSIDE RECORDS SUMMARY | 2024-12-23 19:25 | XMS RPT_ITS | CCD ---
Author Organization [facility] Care Team Providers Care Sales And Service Agent Name Role Phone Dr. Cande Yousif Primary Care Provider [phone] Dr. Cande Yousif Attending Provider [phone] Dr. Cande Yousif Referring Provider [phone] Cande Yousif MD Primary Care Provider [phone] Dr. Cande Yousif Primary Care Provider [phone] Dr. Cande Yousif Referring Provider [phone] Reji SHIPPING CHECKER, SHIPPING CHECKER-C Taylor Attending Provider Dr. Cande Yousif Attending Provider [phone] Dr. Cande Yousif MD Primary Care Provider Dr. Cande Yousif MD Referring Provider [phone] Martha SHIPPING CHECKER-CPratibha Attending Provider Martha SHIPPING CHECKER-CPratibha Referring Provider Oleghe, Efewongbe Primary Care Unavailable Delores García Attending Unavailable Delores García Attending Unavailable Delores García Referring Unavailable Oleghe, Efewongbe Primary Care Unavailable Oleghe, Efewongbe Referring Unavailable Delores García Attending Unavailable Oleghe, Efewongbe Primary Care Unavailable Oleghe, Efewongbe Primary Care Unavailable Oleghe, Efewongbe Referring Unavailable Pratibha Thomas Attending Unavailable Pratibha Thomas Attending Unavailable Pratibha Thomas Referring Unavailable Oleghe, Efewongbe Primary Care Unavailable Pratibha Thomas Attending Unavailable Pratibha Thomas Referring Unavailable KillianluciusCande nation Primary Care Unavailable Allergies Allergy Classification Reported Allergen(s) Allergy Type Date of Onset Reaction(s) Facility (9 sources) Doxycycline Drug Allergy 5 Other: See Comments [facility] Work Phone: (7 sources) Wxlwbzp-Dda-Tgy Reductase Inhibitor; Translations: [Tmuutld-Vmp-Zb a Reductase Inhibitor] Allergy to substance 2 Unknown [facility] Comment on above: Father with genetic mutation and unable to use statins. (1 source) Doxycycline Drug Allergy 5 [facility] Repository Medications Current Medications Medication Drug Class(es) [...] massage in to cover area estrogens, conjugated (nursing home) 0.625 mg/ml vaginal cream (8 sources) Estrogen Start: 03-12-2019 End: 03-05-2020 Conjugated Estrogens (Premarin) 0.625 mg/gram cream Discontinued 0 VAGINAL .COMPLEX 14 03March 12, 2019 1:00am March 05, 2020 4:00pm [...] above: Take 1 tablet by juan jose th once daily. naproxen 250 mg oral tablet (8 sources) Nonsteroidal Anti-inflammatory Drug Start: 01-21-2019 End: 02-26-2019 take 250-500 mg by mouth every eight hours as needed for pain Naproxen 250 MG tablet Discontinued 250 - 500 mg PO EVERY 8 HOURS NEEDED as needed for MILD PAIN 14 03January 21, 2019 1:00am February 26, 2019 1:26pm Pnv #06-Aodz-Rjipu Acid-Omega3 30 mg iron-10 mg iron-1 mg capsule (3 sources) Start: 08-01-2018 End: 03-05-2020 Pnv #16-Brtu-Umauj Acid-Omega3 30 mg iron-10 mg iron-1 mg capsule Discontinued 1 NMA PO DAILY August 01, 2018 12:00am March 05, 2020 3:59pm Start: 08-01-2018 End: 03-05-2020 Pnv #91-Iyzj-Uvrah Acid-Omeg a3 30 mg iron-10 mg iron-1 [...] Hyperlipidemia; Translations: [Hyperlipidemia, unspecified] Onset: 08-08-2024 Chronic Headache; including migraine (1 source) Menstrual migraine, not intractable, without status migrainosus; Translations: [Menstrual migraine, not intractable, without status migrainosus] Onset: 12-19-2024 Chronic Menstrual disorders (1 source) Amenorrhea, unspecified; [...] [Abnormal uterine and vaginal bleeding, unspecified] Onset: 12-19-2024 Chronic Other nervous system disorders (8 sources) [...] Test Name Value Interpretation Reference Range Facility Clipper Operator Office Visit Reporton 12-19-2024 Clipper Operator Office Visit Report [facility] [address], [address] [place] [address] OFFICE VISIT Date of Service: 12/19/24 MR#: [id number] Acct: [id number] Name: KIERAN QIU Rep #: [id number] : 1985 Provider: Dr. Delores talamantes MD Age/Sex: 39/F Location: [facility] [place] Status: Signed Intake Vital Signs 08/08/24 10:49 12/19/24 16:01 12/19/24 16:02 Height 5 ft 3 in 5 ft 3 in 5 ft 3 in Weight: 148 lb 161 lb 3 oz BMI 26.2 28.5 BP 128/84 H 132/84 H Intake Visit Reasons: hyst vs tubal consult Outpatient Interviewing Clerk Required: No Is patient in pain?: No Allergies doxycycline Allergy (Mild, Verified 12/19/24 16:02) Other Phzekvl-SLN-CwP Reductase Inhibitor Allergy (Unknown, Verified 12/19/24 16:02) Unknown Medications ???Medication ???Instructions ???Recorded ???Confirmed ???Type multivitamin 1 tab PO DAILY 04/23/21 12/19/24 H istory krill oil 500 mg capsule mg PO 06/23/22 12/19/24 History tranexamic acid 650 mg tablet 1,300 mg (2 x 650 mg) PO TID 5 08/0712/19/24 Rx days #30 tabs Is last menstrual period known: Yes Last Menstrual Period: 11/29/24 Post menopausal: No Patient : No : [...] History current occupational status: employed current occupation: [employer] Smoking Status: Former smoker alcohol intake: never substance use type: does not use caffeine: Yes what type of physical activity do you participate in: walking seatbelt use: always do you feel safe at home: Yes additional social history: [employer] HPI hyst vs tubal consult Details: KIERAN QIU is a 39 year old who presents for HPI: The patient is a 39-year-old female with a history of irregular and heavy menstrual bleeding, migraines with aura, and constipation presenting for evaluation of permanent contraception and management of menstrual irregularities. Menstrual History - Reports irregular menstrual cycles ranging from 25 to 48 days. - Describes menstrual bleeding as really heavy, sometimes soaking through a maxi pad at work. - Denies hot flashes or night sweats. - Denies acne. - Denies significant mood changes but reports PMS symptoms. - Denies any vision loss or daily headaches. - Denies any significant changes in sleep patterns, stating she sleeps overall good. - Denies any significant changes in energy levels, though she does report feeling tired all the time. Contraception Counseling Management - Expresses desire for permanent contraception; has tried control pills in the past but discontinued due to weight gain and mood changes. 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 - Recently had an early this year and does not want to go through that experience again. Migraines - Experiences migraines with aura, typically premenstrual. Pelvic Pain - Reports constipation and difficulty with bowel movements, sometimes requiring manual assistance. - Feels a vaginal bulge and pressure, suspecting rectal involvement. - Has hemorrhoids and has had fissures in the past. - Experiences occasional urinary leakage with sneezing, usually when constipated. Weight Management - Reports a recent weight gain of approximately 20 pounds, currently weighing around 160 pounds. Past Medical History - Polycystic Ovarian Syndrome (PCOS): Diagnosed based on ultrasound findings showing polycystic ovaries. 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 Normal [facility] Pelvic w/ Transvaginalon Pelvic w/ Transvaginal [facility] Services [address] [place] [address] Pelvic w/ Transvaginal MR#: [id number] Acct: [id number] Name: KIERAN QIU Rep #: [id number] : 1985 F 38 From: Yousuf worthington MD PCP: Dr. Cande Yousif MD Status: REG CLI Study: Pelvic w/ Transvaginal Date of Exam: 08/22/24 Exam# [id number] Ordering Dr: Pratibha Thomas SHIPPING CHECKERAntoine PROCEDURE: PELVIC W/ TRANSVAGINAL 08/22/2024 REASON FOR [...] suggest PCO. Please correlate clinically. [facility] CC: KAJAL Thomas; Dr. Cande Yousif MD Automotive Collision Estimator: Signed Normal [facility] Thyroid Peroxidase ABon 07-0 THYR PEROX AB < 9 Normal 0-34 [facility] Comment on above: Result Comment: Perf ormed at: CB - [facility] [address] [id number] Strapper: John Phillips PhD, Phone: [phone] Performed By: #### L 2137.1340 #### [facility] [address] [place], [place], [id number] Absolute lymphocyte countOrd ered By: Pratibha Thomas on 08-08-2024 Lymphocytes Auto (Unsp spec) [#/Vol] 0.81 10*3/uL Low 0.83-4.51 [facility] Absolute neutrophil countOrd ered By: Pratibha Thomas on 08-08-2024 Neutrophils (Bld) [#/Vol] 2.4 10*3/uL 2.0-7.7 [facility] Anion gap in Serum or Plasma Ordered By: Pratibha Thomas on 08-08-2024 Anion gap [Moles/Vol] 13 mmol/L 5-15 [facility] Automated lymphocyte count a s percentage of total leukocytesOrdered By: Pratibha Thomas on 08-08-2024 Lymphocytes/100 WBC Auto (Unsp spec) 23.1 % 19-41 [facility] BUN/creatinine ratioOrdered By: Pratibha Thomas on 08-08-2024 Urea nitrogen/Creatinine [Mass ratio] 12.1 mg/mg 10-20 [facility] Basophil percentageOrdered B y: Pratibha Thomas on 08-08-2024 Basophils/100 WBC (Bld) 0.9 % 0-1 [facility] Bilirubin, totalOrdered By: Pratibha Thomas on 08-08-2024 Bilirubin [Mass/Vol] 0.56 mg/dL 0.00-1.30 [facility] CBC W/Diff, Automatedon 07-15 Absolute Lymph 0.81 X10 3/uL Low 0.83-4.51 [facility] Comment on above: Performed By: #### L 506.1001, L500.4050, L100.0100, L506.0400, L500.4100, L501.9520 #### [facility] [address] [place], [address] Absolute Neut 2.4 X10 3/uL Normal 2.0-7.7 [facility] Comment on above: Performed By: #### L 506.1001, L500.4050, L100.0100, L506.0400, L500.4100, L501.9520 #### [facility] [address] [place], [address] Basophils/100 WBC (Bld) 0.9 % Normal 0-1 [facility] Comment on above: Performed By: #### L 506.1001, L500.4050, L100.0100, L506.0400, L500.4100, L501.9520 #### [facility] [address] [place], [address] Eosinophils/100 WBC (Bld) 1.7 % Normal 0-5 [facility] Comment on above: Performed By: #### L 506.1001, L500.4050, L100.0100, L506.0400, L500.4100, L501.9520 #### [facility] [address] [place], [address] Erythrocyte distribution width (RBC) [Ratio] 12.3 % Normal 11.6-14.6 [facility] Comment on above: Performed By: #### L 506.1001, L500.4050, L100.0100, L506.0400, L500.4100, L501.9520 #### [facility] [address] [place], [address] Hematocrit (Bld) [Volume fraction] 40.3 % Normal 37-47 [facility] Comment on above: Performed By: #### L 506.1001, L500.4050, L100.0100, L506.0400, L500.4100, L501.9520 #### [facility] [address] [place], [address] Hemoglobin (Bld) [Mass/Vol] 14.0 g/dL Normal 12.0-15.0 [facility] Comment on above: Performed By: #### L 506.1001, L500.4050, L100.0100, L506.0400, L500.4100, L501.9520 #### [facility] [address] [place], [address] IG% 0.300 Normal 0.0-0.9 [facility] Comment on above: Result Comment: IG% - Immature Granulocytes (promyelocytes, myelocytes and metamyelocytes) > 1% indicates that a LEFT SHIFT is Present. Performed By: #### L 506.1001, L500.4050, L100.0100, L506.0400, L500.4100, L501.9520 #### [facility] [address] [place], [address] Lymphocytes/100 WBC (Bld) 23.1 % Normal 19-41 [facility] Comment on above: Performed By: #### L 506.1001, L500.4050, L100.0100, L506.0400, L500.4100, L501.9520 #### [facility] [address] [place], [address] MCH (RBC) [Entitic mass] 32.9 pg High 27.0-32.0 [facility] Comment on above: Performed By: #### L 506.1001, L500.4050, L100.0100, L506.0400, L500.4100, L501.9520 #### [facility] [address] [place], [address] MCHC (RBC) [Mass/Vol] 34.7 g/dL Normal 32-36 [facility] Comment on above: Performed By: #### L 506.1001, L500.4050, L100.0100, L506.0400, L500.4100, L501.9520 #### [facility] [address] [place], [address] MCV (RBC) [Entitic vol] 94.6 fL Normal 81-99 [facility] Comment on above: Performed By: #### L 506.1001, L500.4050, L100.0100, L506.0400, L500.4100, L501.9520 #### [facility] [address] [place], [address] Monocytes/100 WBC (Bld) 6.6 % Normal 0-10 [facility] Comment on above: Performed By: #### L 506.1001, L500.4050, L100.0100, L506.0400, L500.4100, L501.9520 #### [facility] [address] [place], [address] Neutrophils/100 WBC (Bld) 67.4 % Normal 47-70 [facility] Comment on above: Performed By: #### L 506.1001, L500.4050, L100.0100, L506.0400, L500.4100, L501.9520 #### [facility] [address] [place], [address] Nucleated RBC (Bld) [#/Vol] 0 10*3/uL Normal 0-5 [facility] Comment on above: Performed By: #### L 506.1001, L500.4050, L100.0100, L506.0400, L500.4100, L501.9520 #### [facility] [address] [place], [address] Platelet mean volume (Bld) [Entitic vol] 10.7 fL Normal 6.2-12.0 [facility] Comment on above: Performed By: #### L 506.1001, L500.4050, L100.0100, L506.0400, L500.4100, L501.9520 #### [facility] [address] [place], [address] Platelets (Bld) [#/Vol] 253 10*3/uL Normal 150-450 [facility] Comment on above: Performed By: #### L 506.1001, L500.4050, L100.0100, L506.0400, L500.4100, L501.9520 #### [facility] [address] [place], [address] RBC (Bld) [#/Vol] 4.26 10*6/uL Normal 4.2-5.4 [facility] Comment on above: Performed By: #### L 506.1001, L500.4050, L100.0100, L506.0400, L500.4100, L501.9520 #### [facility] [address] [place], [address] RDW SD 42.6 fl Normal 35.1-43.9 [facility] Comment on above: Performed By: #### L 506.1001, L500.4050, L100.0100, L506.0400, L500.4100, L501.9520 #### [facility] [address] [place], [address] WBC (Bld) [#/Vol] 3.5 10*3/uL Low 4.4-11.0 [facility] Comment on above: Performed By: #### L 506.1001, L500.4050, L100.0100, L506.0400, L500.4100, L501.9520 #### [facility] [address] [place], [address] Calculated very low density lipoprotein (VLDL) cholesterol measurementOrdered By: Pratibha Thomas on 08-08-2024 Calculated very low density lipoprotein (VLDL) cholesterol measurement 11 mg/dL 5-40 [facility] Carbon dioxide, total [Moles /volume] in Central venous bloodOrdered By: Pratibha Thomas on 08-08-2024 CO2 [Moles/Vol] 24.0 mmol/L 21.0-32.0 [facility] Chloride assayOrdered By: Danita Thomas on 08-08-2024 Chloride [Moles/Vol] 104 mmol/L 98-108 [facility] Comprehensive Metabolic Prof ilon 08-08-2024 Albumin [Mass/Vol] 4.7 g/dL Normal 3.5-5.0 [facility] Comment on above: Performed By: #### L 506.1001, L500.4050, L100.0100, L506.0400, L500.4100, L501.9520 #### [facility] [address] [place], [address] Albumin/Globulin [Mass ratio] 1.6 {ratio} Normal 0.9-2.4 [facility] Comment on above: Performed By: #### L 506.1001, L500.4050, L100.0100, L506.0400, L500.4100, L501.9520 #### [facility] [address] [place], [address] ALK PHOS 62 U/L Normal 35-104 [facility] Comment on above: Performed By: #### L 506.1001, L500.4050, L100.0100, L506.0400, L500.4100, L501.9520 #### [facility] [address] [place], [address] ALT [Catalytic activity/Vol] 30 U/L Normal <=34 [facility] Comment on above: Performed By: #### L 506.1001, L500.4050, L100.0100, L506.0400, L500.4100, L501.9520 #### [facility] [address] [place], [address] AST [Catalytic activity/Vol] 25 U/L Normal <=31 [facility] Comment on above: Performed By: #### L 506.1001, L500.4050, L100.0100, L506.0400, L500.4100, L501.9520 #### [facility] [address] [place], [address] Bilirubin [Mass/Vol] 0.56 mg/dL Normal 0.00-1.30 [facility] Comment on above: Performed By: #### L 506.1001, L500.4050, L100.0100, L506.0400, L500.4100, L501.9520 #### [facility] [address] [place], [address] BUN/CRE 12.1 RATIO Normal 10-20 [facility] Comment on above: Performed By: #### L 506.1001, L500.4050, L100.0100, L506.0400, L500.4100, L501.9520 #### [facility] [address] [place], [address] Calcium [Mass/Vol] 9.4 mg/dL Normal 7.6-11.0 [facility] Comment on above: Performed By: #### L 506.1001, L500.4050, L100.0100, L506.0400, L500.4100, L501.9520 #### [facility] [address] [place], [address] Chloride [Moles/Vol] 104 mmol/L Normal 98-108 [facility] Comment on above: Performed By: #### L 506.1001, L500.4050, L100.0100, L506.0400, L500.4100, L501.9520 #### [facility] [address] [place], [address] CO2 [Moles/Vol] 24.0 mmol/L Normal 21.0-32.0 [facility] Comment on above: Performed By: #### L 506.1001, L500.4050, L100.0100, L506.0400, L500.4100, L501.9520 #### [facility] [address] [place], [address] Creatinine [Mass/Vol] 0.76 mg/dL Normal 0.70-1.20 [facility] Comment on above: Performed By: #### L 506.1001, L500.4050, L100.0100, L506.0400, L500.4100, L501.9520 #### [facility] [address] [place], [address] GAP 13 Normal 5-15 [facility] Comment on above: Performed By: #### L 506.1001, L500.4050, L100.0100, L506.0400, L500.4100, L501.9520 #### [facility] [address] [place], [address] GFR/1.73 sq M.predicted among non-blacks MDRD (S/P/Bld) [Vol rate/Area] 104 mL/min/{1.73_m2} Normal >60 [facility] Comment on above: Result Comment: mL/m in/1.73m2 CKD-EPI Creatinine Equation (2020) Performed By: #### L 506.1001, L500.4050, L100.0100, L506.0400, L500.4100, L501.9520 #### [facility] [address] [place], [address] Globulin (S) [Mass/Vol] 2.9 g/dL Normal 2.2-4.2 [facility] Comment on above: Performed By: #### L 506.1001, L500.4050, L100.0100, L506.0400, L500.4100, L501.9520 #### [facility] [address] [place], [address] Glucose [Mass/Vol] 94 mg/dL Normal 70-99 [facility] Comment on above: Performed By: #### L 506.1001, L500.4050, L100.0100, L506.0400, L500.4100, L501.9520 #### [facility] [address] [place], [address] Potassium [Moles/Vol] 4.0 mmol/L Normal 3.3-5.1 [facility] Comment on above: Performed By: #### L 506.1001, L500.4050, L100.0100, L506.0400, L500.4100, L501.9520 #### [facility] [address] [place], [address] Sodium [Moles/Vol] 141 mmol/L Normal 133-145 [facility] Comment on above: Performed By: #### L 506.1001, L500.4050, L100.0100, L506.0400, L500.4100, L501.9520 #### [facility] [address] [place], [address] T PROT 7.6 g/dL Normal 5.9-8.4 [facility] Comment on above: Performed By: #### L 506.1001, L500.4050, L100.0100, L506.0400, L500.4100, L501.9520 #### [facility] [address] [place], [address] Urea nitrogen [Mass/Vol] 9 mg/dL Normal 4-19 [facility] Comment on above: Performed By: #### L 506.1001, L500.4050, L100.0100, L506.0400, L500.4100, L501.9520 #### [facility] [address] [place], [address] Eosinophil percentageOrdered By: Pratibha Thomas on 08-08-2024 Eosinophils/100 WBC (Bld) 1.7 % 0-5 [facility] Erythrocyte distribution wid th ratioOrdered By: Pratibha Thomas on 08-08-2024 Erythrocyte distribution width (RBC) [Ratio] 12.3 % 11.6-14.6 [facility] Erythrocyte distribution wid th standard deviationOrdered By: Pratibha Thomas on 08-08-2024 Erythrocyte distribution width (RBC) [Ratio] 42.6 fl 35.1-43.9 [facility] Glomerular filtration rate ( GFR) estimation/1.73 sq m using serum, plasma, or whole bOrdered By: Pratibha Thomas on 08-08-2024 GFR/1.73 sq M.predicted among non-blacks MDRD (S/P/Bld) [Vol rate/Area] 104 mL/min/{1.73_m2} >60 [facility] Comment on above: mL/min/1.73m2 CKD-EP I Creatinine Equation (2020) Hematocrit Auto (Bld) [Volum e fraction]Ordered By: Pratibha Thomas on 08-08-2024 Hematocrit (Bld) [Volume fraction] 40.3 % 37-47 [facility] Hemoglobin measurementOrdere d By: Pratibha Thomas on 08-08-2024 Hemoglobin (Bld) [Mass/Vol] 14.0 g/dL 12.0-15.0 [facility] Immature granulocytes/100 WB C Auto (Bld)Ordered By: Pratibha Thomas on 08-08-2024 Immature granulocytes/100 WBC (Bld) 0.300 % 0.0-0.9 [facility] Comment on above: IG% - Immature Granu locytes (promyelocytes, myelocytes and metamyelocytes) > 1% indicates that a LEFT SHIFT is Present. LDL calc ser/plasOrdered By: Pratibha Thomas on 08-08-2024 Cholesterol in LDL [Mass/Vol] 139 mg/dL [facility] Comment on above: Spfzueyyde=109-559 m g/dL & Higher Fvkz=898 mg/dL or greater Laboratory - Chemistry and C hemistry - challengeOrdered By: Pratibha Thomas on 08-08-2024 HCG ( test) Ql (U) Negative [facility] AST [Catalytic activity/Vol] 25 U/L <32 [facility] Lipid Profileon 08-08-2024 CHOL:HDL 3.03 Normal [facility] Comment on above: Performed By: #### L 506.1001, L500.4050, L100.0100, L506.0400, L500.4100, L501.9520 #### [facility] [address] [place], [address] Cholesterol [Mass/Vol] 224 mg/dL High <=200 [facility] Comment on above: Result Comment: Chol esterol level, Desirable <200 mg/dL Borderline high cholesterol 200-239 mg/dL High cholesterol >=240 mg/dL Recommendations of the NCEP Adult Treatment Panel for the following risk-cutoff thresholds for the [place] population. Performed By: #### L 506.1001, L500.4050, L100.0100, L506.0400, L500.4100, L501.9520 #### [facility] [address] [place], [address] Cholesterol in HDL [Mass/Vol] 74 mg/dL Normal [facility] Comment on above: Result Comment: Safia onal Cholesterol Education Program (NCEP) guidelines: <40 mg/dL: Low HDL-cholesterol (major risk factor for CHD) >= 60 mg/dL: High HDL-cholesterol (negative risk factor for CHD) HDL-cholesterol is affected by a number of factors, e.g. smoking, exercise, hormones, sex and age. Performed By: #### L 506.1001, L500.4050, L100.0100, L506.0400, L500.4100, L501.9520 #### [facility] [address] [place], [address] Cholesterol in LDL [Mass/Vol] 139 mg/dL Normal [facility] Comment on above: Result Comment: Bord pdtzen=328-424 mg/dL Higher Bkfw=742 mg/dL or greater Performed By: #### L 506.1001, L500.4050, L100.0100, L506.0400, L500.4100, L501.9520 #### [facility] [address] [place], [address] Cholesterol in VLDL [Mass/Vol] 11 mg/dL Normal 5-40 [facility] Comment on above: Performed By: #### L 506.1001, L500.4050, L100.0100, L506.0400, L500.4100, L501.9520 #### [facility] [address] [place], [address] Triglyceride [Mass/Vol] 57 mg/dL Normal [facility] Comment on above: Result Comment: The drugs N-Acetylcysteine and Metamizole may falsely depress this assay. Normal range: <150 mg/dL Borderline High: 150-199 mg/dL High: 200-499 mg/dL Very High: >500 mg/dL Performed By: #### L 506.1001, L500.4050, L100.0100, L506.0400, L500.4100, L501.9520 #### [facility] [address] [place], [address] MCV (mean corpuscular volume ) determinationOrdered By: Pratibha Thomas on 08-08-2024 MCV (RBC) [Entitic vol] 94.6 fL 81-99 [facility] Mean corpuscular hemoglobin (MCH) determinationOrdered By: Pratibha Thomas on 08-08-2024 MCH (RBC) [Entitic mass] 32.9 pg High 27.0-32.0 [facility] Mean corpuscular hemoglobin concentration (MCHC) determinationOrdered By: Pratibha Thomas on 08-08-2024 MCHC (RBC) [Mass/Vol] 34.7 g/dL 32-36 [facility] Mean platelet volume determi nationOrdered By: Pratibha Thomas on 08-08-2024 Platelet mean volume (Bld) [Entitic vol] 10.7 fL 6.2-12.0 [facility] Monocyte percentageOrdered B y: Pratibha Thomas on 08-08-2024 Monocytes/100 WBC (Bld) 6.6 % 0-10 [facility] Neutrophil percentageOrdered By: Pratibhapadmaja Thomas on 08-08-2024 Neutrophils/100 WBC (Bld) 67.4 % 47-70 [facility] Nucleated red blood cell per centageOrdered By: Pratibha Twylagriffin on 08-08-2024 Nucleated RBC/100 WBC (Bld) [Ratio] 0 % 0-5 [facility] Clipper Operator Office Visit Reporton 08-08-2024 Clipper Operator Office Visit Report [facility] [address], [address] [place] [address] OFFICE VISIT Date of Service: 08/08/24 MR#: [id number] Acct: [id number] Name: KIERAN QIU Rep #: [id number] : 1985 Provider: KAJAL Retana Age/Sex: 38/F Location: [facility] Status: Signed Intake Vital Signs 07/20/23 13:23 08/08/24 10:49 Height 5 ft 3 in 5 ft 3 in Weight: 148 lb BMI 26.2 BP 128/84 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) Chief Complaint: Annual Outpatient Interviewing Clerk Required: No Is patient in pain?: No Allergies doxycycline Allergy (Mild, Verified 08/08/24 10:56) Other [id number]-[id number] Reductase Inhibitor Allergy (Unknown, Verified 08/08/24 10:56) [...] History current occupational status: employed current occupation: [employer] Smoking Status: Former smoker alcohol intake: never [...] Unknown SAB Unknown EAB Unknown Chemical 01/19/19 [place] live - full term 8lbs Female epidural [facility] Encounter for routine gynecological examination Details: KIERAN [...] normal i (more content not included)... Normal [facility] Platelet countOrdered By: Danita Thomas on 08-08-2024 Platelets (Bld) [#/Vol] 253 10*3/uL 150-450 [facility] Potassium measurement (mass/ volume)Ordered By: Pratibha Thomas on 08-08-2024 Potassium (Unsp spec) [Mass/Vol] 4.0 mmol/L 3.3-5.1 [facility] RBC Auto (Bld) [#/Vol]Ordere d By: Pratibha Thomas on 08-08-2024 RBC (Bld) [#/Vol] 4.26 10*6/uL 4.2-5.4 [facility] Screening total cholesterol/ high density lipoprotein (HDL) cholesterol ratioOrdered By: Pratibha Thomas on 08-08-2024 Cholesterol.total/Cholest latha in HDL [Mass ratio] 3.03 {ratio} [facility] Serum creatinine measurement (mass/volume)Ordered By: Pratibha Thomas on 08-08-2024 Creatinine [Mass/Vol] 0.76 mg/dL 0.70-1.20 [facility] Serum globulin measurementOr dered By: Pratibha Thomas on 08-08-2024 Globulin (S) [Mass/Vol] 2.9 g/dL 2.2-4.2 [facility] Serum glucose measurement (m ass/volume)Ordered By: Pratibha Thomas on 08-08-2024 Glucose [Mass/Vol] 94 mg/dL 70-99 [facility] Serum or plasma alanine cote otransferase (ALT) measurementOrdered By: Pratibha Thomas on 08-08-2024 ALT [Catalytic activity/Vol] 30 U/L <35 [facility] Serum or plasma albumin junaid urement (mass/volume)Ordered By: Pratibha Thomas on 08-08-2024 Albumin [Mass/Vol] 4.7 g/dL 3.5-5.0 [facility] Serum or plasma albumin/glob ulin mass ratioOrdered By: Pratibha Thomas on 08-08-2024 Albumin/Globulin [Mass ratio] 1.6 {ratio} 0.9-2.4 [facility] Serum or plasma alkaline oly sphatase measurementOrdered By: Pratibha Thomas on 08-08-2024 ALP [Catalytic activity/Vol] 62 U/L 35-104 [facility] Serum or plasma calcium junaid urement (mass/volume)Ordered By: Pratibha Thomas 08-08-2024 Calcium [Mass/Vol] 9.4 mg/dL 7.6-11.0 [facility] Serum or plasma cholesterol in HDL measurement (mass/volume)Ordered By: Pratibha Thomas on 08-08-2024 Cholesterol in HDL [Mass/Vol] 74 mg/dL >40 [facility] Comment on above: National Cholesterol Education Program (NCEP) guidelines:<40 mg/dL: Low HDL-cholesterol (major risk factor for CHD)>= 60 mg/dL: High HDL-cholesterol (negative risk factor for CHD)HDL-cholesterol is affected by a number of factors, e.g. smoking, exercise, hormones, sex and age. Serum or plasma cholesterol measurement (mass/volume)Ordered By: Pratibha Thomas on 08-08-2024 Cholesterol [Mass/Vol] 224 mg/dL High <201 [facility] Comment on above: Cholesterol level, D esirable <200 mg/dLBorderline high cholesterol 200-239 mg/dLHigh cholesterol >=240 mg/dLRecommendations of the NCEP Adult Treatment Panel for the following risk-cutoff thresholds for the [place] population. Serum or plasma thyroperoxid ase antibody assay (units/volume)Ordered By: Pratibha Thomas on 08-08-2024 TPO Ab Qn [IU]/mL 0-34 [facility] Comment on above: Performed at: [address] [id number] Director: John Phillips PhD, Phone: [phone] Serum or plasma urea nitroge n measurement (mass/volume)Ordered By: Pratibha Thomas on 08-08-2024 Urea nitrogen [Mass/Vol] 9 mg/dL 4-19 [facility] Sodium levelOrdered By: Maria Del Rosario Thomas on 08-08-2024 Sodium [Moles/Vol] 141 mmol/L 133-145 [facility] T4 Free Directon 08-08-2024 T4 FREE DIRECT 1.40 ng/dL Normal 0.76-1.46 [facility] Comment on above: Performed By: #### L 506.1001, L500.4050, L100.0100, L506.0400, L500.4100, L501.9520 #### [facility] [address] [place], [address] T4 freeOrdered By: Pratibha farmer on 08-08-2024 Free T4 [Mass/Vol] 1.40 ng/dL 0.76-1.46 [facility] TSH DL <= 0.005 mIU/L QnOrde red By: Pratibha Thomas on 08-08-2024 TSH Qn 1.690 uIU/mL 0.300-4.200 [facility] Thyroid Stim Hormone (TSH)on 08-08-2024 TSH 1.690 uIU/mL Normal 0.300-4.200 [facility] Comment on above: Performed By: #### L 506.1001, L500.4050, L100.0100, L506.0400, L500.4100, L501.9520 #### [facility] [address] [place], [address] Total proteinOrdered By: You Thomas on 08-08-2024 Protein [Mass/Vol] 7.6 g/dL 5.9-8.4 [facility] Triglycerides measurementOrd ered By: Pratibha Thomas on 08-08-2024 Triglyceride [Mass/Vol] 57 mg/dL <199 [facility] Comment on above: The drugs N-Acetylcy steine and Metamizole may falsely depress this assay. Normal range: <150 mg/dLBorderline High: 150-199 mg/dLHigh: 200-499 mg/dLVery High: >500 mg/dL Vitamin D,25 Hydroxyon 08-08 Vitamin D 25-OH 27.6 ng/mL Low 30-100 [facility] Comment on above: Result Comment: Vane min D Status Deficiency: <20 ng/mL (50nmol/L) Insufficiency: 20-30 ng/mL (50-75 nmol/L) Sufficiency: 30-100 ng/mL (75-250 nmol/L) Toxicity: >100 ng/mL (>250 nmol/L) Performed By: #### L 506.1001, L500.4050, L100.0100, L506.0400, L500.4100, L501.9520 #### [facility] [address] [place], [address] White blood cell (WBC) count Ordered By: Pratibha Thomas on 08-08-2024 WBC (Bld) [#/Vol] 3.5 10*3/uL Low 4.4-11.0 [facility] Absolute lymphocyte countOrd ered By: Cande Yousif on 08-18-2022 Lymphocytes Auto (Unsp spec) [#/Vol] 0.96 10*3/uL 0.83-4.51 [facility] Basophil percentageOrdered B y: Cande Yousif on 08-18-2022 Basophils/100 WBC (Bld) 0.4 % 0-1 [facility] Bilirubin [Mass/Vol] 0.80 mg/dL 0.20-1.00 [facility] Comment on above: For patients on eltr ombopag therapy, use of Dimension [place] TBIL is not recommended. Chloride [Moles/Vol] 105 mmol/L 98-107 [facility] Cholesterol [Mass/Vol] 205 mg/dL <200 [facility] Comment on above: <200 mg/dL Desirable 200-240 mg/dL Borderline >240 mg/dL High Risk Eosinophils/100 WBC (Bld) 1.3 % 0-5 [facility] Glucose [Mass/Vol] 87 mg/dL 74-106 [facility] Neutrophils (Bld) [#/Vol] 3.9 10*3/uL 2.0-7.7 [facility] Neutrophils/100 WBC (Bld) 74.5 % 47-70 [facility] Potassium [Moles/Vol] 3.8 mmol/L 3.5-5.1 [facility] Protein [Mass/Vol] 7.6 g/dL 6.4-8.2 [facility] Sodium [Moles/Vol] 139 mmol/L 136-145 [facility] Triglyceride [Mass/Vol] 75 mg/dL <199 [facility] Comment on above: The drugs N-Acetylcy steine and Metamizole may falsely depress this assay.Serum Triglycerides Reference Interval Normal <150 mg/dL Borderline high 150 - 199 mg/dL High 200 - 499 mg/dL Very High > or = 500 mg/dL WBC (Bld) [#/Vol] 5.2 10*3/uL 4.4-11.0 [facility] Blood erythrocytes count (nu mber/volume)Ordered By: Cande Yousif on 08-18-2022 RBC (Bld) [#/Vol] 3.97 10*6/uL 4.2-5.4 [facility] Blood hemoglobin measurement (mass/volume)Ordered By: Cande Yousif on 08-18-2022 Hemoglobin (Bld) [Mass/Vol] 12.9 g/dL 12.0-15.0 [facility] Blood lymphocytes/100 leukoc ytesOrdered By: Cande Yousif on 08-18-2022 Lymphocytes/100 WBC (Bld) 18.4 % 19-41 [facility] Blood monocytes/100 leukocyt esOrdered By: Cande Yousif on 08-18-2022 Monocytes/100 WBC (Bld) 5.2 % 0-10 [facility] Blood platelet mean volumeOr dered By: Cande Yousif on 08-18-2022 Platelet mean volume (Bld) [Entitic vol] 10.1 fL 6.2-12.0 [facility] Determination of erythrocyte mean corpuscular volume (MCV)Ordered By: Cande Yousif on 08-18-2022 MCV (RBC) [Entitic vol] 93.5 fL 81-99 [facility] Hematocrit Auto (Bld) [Volum e fraction]Ordered By: Cande Yousif on 08-18-2022 Hematocrit (Bld) [Volume fraction] 37.1 % 37-47 [facility] - Chemistry and C hemistry - challengeOrdered By: [facility] [address] Killianrios on 08-18-2022 ALP [Catalytic activity/Vol] 67 U/L 45-117 [facility] ALT [Catalytic activity/Vol] 30 U/L 13-56 [facility] CO2 [Moles/Vol] 28.0 mmol/L 21.0-32.0 [facility] Free T4 [Mass/Vol] 1.09 ng/dL 0.76-1.46 [facility] Globulin (S) [Mass/Vol] 3.6 g/dL 2.2-4.2 [facility] Urea nitrogen/Creatinine [Mass ratio] 7.2 mg/mg 10-20 [facility] - Hematology and Cell countsOrdered By: Cande Yousif on 08-18-2022 Erythrocyte distribution width (RBC) [Entitic vol] 44.0 fL 35.1-43.9 [facility] Erythrocyte distribution width (RBC) [Ratio] 13.0 % 11.6-14.6 [facility] Immature granulocytes/100 WBC (Bld) 0.200 % 0.0-0.9 [facility] Comment on above: IG% - Immature Granu locytes (promyelocytes, myelocytes and metamyelocytes) > 1% indicates that a LEFT SHIFT is Present. MCH (RBC) [Entitic mass] 32.5 pg 27.0-32.0 [facility] Nucleated RBC/100 WBC (Bld) [Ratio] 0 % 0-5 [facility] MCHC Auto (RBC) [Mass/Vol]Or dered By: Cande Yousif on 08-18-2022 MCHC (RBC) [Mass/Vol] 34.8 g/dL 32-36 [facility] No Panel InformationOrdered By: Cande Yousif on 08-18-2022 Estimated GFR (MDRD) Amer 100 mL/min >60 [facility] Comment on above: GFR Calc Estimated GFR (MDRD) Non-Af Amer 83 mL/min >60 [facility] Comment on above: Non- GFR Calc Thyroid Stimulating Hormone (TSH) 1.93 uIU/mL 0.358-3.74 [facility] Platelets bldOrdered By: Andrey Yousif on 08-18-2022 Platelets (Bld) [#/Vol] 256 10*3/uL 150-450 [facility] Serum or plasma albumin junaid urement (mass/volume)Ordered By: Cande Yousif on 08-18-2022 Albumin [Mass/Vol] 4.0 g/dL 3.2-5.0 [facility] Serum or plasma albumin/glob ulin mass ratioOrdered By: Cande Yousif on 08-18-2022 Albumin/Globulin [Mass ratio] 1.1 {ratio} 0.9-2.4 [facility] Serum or plasma calcium junaid urement (mass/volume)Ordered By: Cande Yousif on 08-18-2022 Calcium [Mass/Vol] 9.2 mg/dL 8.5-10.1 [facility] Serum or plasma cholesterol in HDL measurement (mass/volume)Ordered By: Cande Yousif on 08-18-2022 Cholesterol in HDL [Mass/Vol] 76 mg/dL >40 [facility] Comment on above: The drugs N-Acetylcy steine and Metamizole may falsely depress this assay. Reference Range HDL <40 mg/dL Low HDL Cholesterol HDL >or= 60 mg/dL High HDL Cholesterol Serum or plasma cholesterol in VLDL measurement (mass/volume)Ordered By: Cande Yousif on 08-18-2022 Cholesterol in VLDL [Mass/Vol] 15 mg/dL 5-40 [facility] Serum or plasma creatinine m easurement (mass/volume)Ordered By: Cande Yousif on 08-18-2022 Creatinine [Mass/Vol] 0.83 mg/dL 0.55-1.02 [facility] Comment on above: The validity of the calculated GFR & GFRAA in patients over 70 years has not been determined. Clinical correlation is essential. Serum or plasma low density lipoprotein (LDL) cholesterol measurement (mass/volume)Ordered By: marcella Yousif on 08-18-2022 Cholesterol in LDL [Mass/Vol] 114 mg/dL 0-130 [facility] Serum or plasma urea nitroge n measurement (mass/volume)Ordered By: Cande Yousif on 08-18-2022 Urea nitrogen [Mass/Vol] 6 mg/dL 7-18 [facility] Thin prep Papanicolaou smear with manual screeningOrdered By: [facility] Daily[facility] on 08-18-2022 Thin prep Papanicolaou smear with manual screening 25 U/L 15-37 [facility] Thin prep Papanicolaou smear with manual screening 6 5-15 [facility] Absolute lymphocyte counton 07-08-2021 Lymphocytes Auto (Unsp spec) [#/Vol] 0.91 10*3/uL 0.83-4.51 [facility] Work Phone: Basophil percentageon 2021 Basophils/100 WBC (Bld) 0.4 % 0-1 [facility] Work Phone: Bilirubin [Mass/Vol] 0.60 mg/dL 0.20-1.00 [facility] Work Phone: Comment on above: For patients on eltr ombopag therapy, use of Dimension [place] TBIL is not recommended. Chloride [Moles/Vol] 102 mmol/L 98-107 [facility] Work Phone: Cholesterol [Mass/Vol] 234 mg/dL <200 [facility] Work Phone: Comment on above: <200 mg/dL Desirable 200-240 mg/dL Borderline >240 mg/dL High Risk Eosinophils/100 WBC (Bld) 1.5 % 0-5 [facility] Work Phone: Glucose [Mass/Vol] 84 mg/dL 74-106 [facility] Work Phone: Neutrophils (Bld) [#/Vol] 4.0 10*3/uL 2.0-7.7 [facility] Work Phone: Neutrophils/100 WBC (Bld) 75.5 % 47-70 [facility] Work Phone: Potassium [Moles/Vol] 3.9 mmol/L 3.5-5.1 [facility] Work Phone: Protein [Mass/Vol] 7.9 g/dL 6.4-8.2 [facility] Work Phone: Sodium [Moles/Vol] 138 mmol/L 136-145 [facility] Work Phone: Triglyceride [Mass/Vol] 79 mg/dL [facility] Work Phone: Comment on above: The drugs N-Acetylcy steine and Metamizole may falsely depress this assay.Serum Triglycerides Reference Interval Normal <150 mg/dL Borderline high 150 - 199 mg/dL High 200 - 499 mg/dL Very High > or = 500 mg/dL WBC (Bld) [#/Vol] 5.4 10*3/uL 4.4-11.0 [facility] Work Phone: Blood erythrocytes count (nu mber/volume)on 07-08-2021 RBC (Bld) [#/Vol] 4.14 10*6/uL 4.2-5.4 [facility] Work Phone: Blood hemoglobin measurement (mass/volume)on 07-08-2021 Hemoglobin (Bld) [Mass/Vol] 13.3 g/dL 12.0-15.0 [facility] Work Phone: Blood lymphocytes/100 leukoc yteson 07-08-2021 Lymphocytes/100 WBC (Bld) 17.0 % 19-41 [facility] Work Phone: Blood monocytes/100 leukocyt eson 07-08-2021 Monocytes/100 WBC (Bld) 5.0 % 0-10 [facility] Work Phone: Blood platelet mean volumeon 07-08-2021 Platelet mean volume (Bld) [Entitic vol] 10.4 fL 6.2-12.0 [facility] Work Phone: Determination of erythrocyte mean corpuscular volume (MCV)on 07-08-2021 MCV (RBC) [Entitic vol] 94.2 fL 81-99 [facility] Work Phone: Hematocrit Auto (Bld) [Volum e fraction]on 07-08-2021 Hematocrit (Bld) [Volume fraction] 39.0 % 37-47 [facility] Work Phone: Laboratory - Chemistry and C hemistry - challengeon 07-08-2021 ALP [Catalytic activity/Vol] 75 U/L 45-117 [facility] Work Phone: ALT [Catalytic activity/Vol] 35 U/L 13-56 [facility] Work Phone: CO2 [Moles/Vol] 31.0 mmol/L 21.0-32.0 [facility] Work Phone: Globulin (S) [Mass/Vol] 3.7 g/dL 2.2-4.2 [facility] Work Phone: Urea nitrogen/Creatinine [Mass ratio] 11.5 mg/mg 10-20 [facility] Work Phone: Laboratory - Hematology and Cell countson 07-08-2021 Erythrocyte distribution width (RBC) [Entitic vol] 43.0 fL 35.1-43.9 [facility] Work Phone: Erythrocyte distribution width (RBC) [Ratio] 12.5 % 11.6-14.6 [facility] Work Phone: Immature granulocytes/100 WBC (Bld) 0.600 % 0.0-0.9 [facility] Work Phone: Comment on above: IG% - Immature Granu locytes (promyelocytes, myelocytes and metamyelocytes) > 1% indicates that a LEFT SHIFT is Present. MCH (RBC) [Entitic mass] 32.1 pg 27.0-32.0 [facility] Work Phone: Nucleated RBC/100 WBC (Bld) [Ratio] 0 % 0-5 [facility] Work Phone: MCHC Auto (RBC) [Mass/Vol]on 07-08-2021 MCHC (RBC) [Mass/Vol] 34.1 g/dL 32-36 [facility] Work Phone: No Panel Informationon 07-08 Estimated GFR (MDRD) Amer 108 mL/min >60 [facility] Work Phone: Comment on above: GFR Calc Estimated GFR (MDRD) Non-Af Amer 89 mL/min >60 [facility] Work Phone: Comment on above: Non- GFR Calc Platelets bldon 07-08-2021 Platelets (Bld) [#/Vol] 283 10*3/uL 150-450 [facility] Work Phone: Serum or plasma albumin junaid urement (mass/volume)on 07-08-2021 Albumin [Mass/Vol] 4.2 g/dL 3.2-5.0 [facility] Work Phone: Serum or plasma albumin/glob ulin mass ratioon 07-08-2021 Albumin/Globulin [Mass ratio] 1.1 {ratio} 0.9-2.4 [facility] Work Phone: Serum or plasma calcium junaid urement (mass/volume)on 07-08-2021 Calcium [Mass/Vol] 9.0 mg/dL 8.5-10.1 [facility] Work Phone: Serum or plasma cholesterol in HDL measurement (mass/volume)on 07-08-2021 Cholesterol in HDL [Mass/Vol] 70 mg/dL [facility] Work Phone: Comment on above: The drugs N-Acetylcy steine and Metamizole may falsely depress this assay. Reference Range HDL <40 mg/dL Low HDL Cholesterol HDL >or= 60 mg/dL High HDL Cholesterol Serum or plasma cholesterol in VLDL measurement (mass/volume)on 07-08-2021 Cholesterol in VLDL [Mass/Vol] 16 mg/dL 5-40 [facility] Work Phone: Serum or plasma creatinine m easurement (mass/volume)on 07-08-2021 Creatinine [Mass/Vol] 0.78 mg/dL 0.55-1.02 [facility] Work Phone: Comment on above: The validity of the calculated GFR & GFRAA in patients over 70 years has not been determined. Clinical correlation is essential. Serum or plasma low density lipoprotein (LDL) cholesterol measurement (mass/volume)on 07-08-2021 Cholesterol in LDL [Mass/Vol] 148 mg/dL 0-130 [facility] Work Phone: Serum or plasma urea nitroge n measurement (mass/volume)on 07-08-2021 Urea nitrogen [Mass/Vol] 9 mg/dL 7-18 [facility] Work Phone: Thin prep Papanicolaou smear with manual screeningon 07-08-2021 Thin prep Papanicolaou smear with manual screening 20 U/L 15-37 [facility] Work Phone: Thin prep Papanicolaou smear with manual screening 5 5-15 [facility] Work Phone: MRI BRAIN WO/W IVCONon 05-16 MRI BRAIN WO/W IVCON * * *Final Report* * * DATE OF EXAM: May 16 2021 4:29PM [facility] 0295 - MRI BRAIN WO/W IVCON / [...] neural foraminal narrowing in the cervical spine. [employer] Collision Estimator: LOLA Transcribe Date/Time: May 16 2021 4:39P Dictated by : CATHERINE HOLCOMB MD This examination was interpreted and the report reviewed and electronically signed by: CATHERINE HOLCOMB MD on May 16 2021 4:52PM EST [id number] Normal [facility] MRI CERVICAL SPINE WO/W IVCO Non 05-16-2021 MRI CERVICAL SPINE WO/W IVCON * * *Final Report* * * DATE OF EXAM: May 16 2021 4:29PM [facility] 0298 - MRI CERVICAL SPINE WO/W IVCON [...] neural foraminal narrowing in the cervical spine. Automotive Collision Estimator: LOLA Transcribe Date/Time: May 16 2021 4:39P Dictated by : CATHERINE HOLCOMB MD This examination was interpreted and the report reviewed and electronically signed by: CATHERINE HOLCOMB MD on May 16 2021 4:52PM EST [id number] Normal [facility] No Panel Informationon 04-23 Vitamin D 25-Hydroxy 23.4 ng/mL [facility] Work Phone: Comment on above: Vitamin D 25(OH) Sta tus Range Deficiency <20 ng/mL (50nmol/L) Insufficiency 20 - 30 ng/mL (50 - 75 nmol/L) Sufficiency 30 - 100 ng/mL (75 - 250 nmol/L) Toxicity >100 ng/mL (>250 nmol/L) CNNURSEon 06-30-2020 CNNURSE Nurse Visit (COVAMD) ---- KIERAN QIU ([id number]) 1985 F Date Time Provider Department 06/30/20 3:20 PM COVID VACCINE AMES COVAMD During your visit today, we recorded the following information about you: Referring Provider: RANI ARMANDO JR [[id number]] Allergies As of Date: 06/30/2020 Noted Allergy Reaction DOXYCYCLINE 09/30/2014 14 - Other: See Comments Comments: hot and tingly hands Date Reviewed: 06/24/2016 Reviewed by: Jake Oakes) Geronimo - Fully Assessed Order(s):[employer] SARS-COV-2 VACCINE 2D DOSE APPT [[id number]] Order #: [id number] [employer] COVID-19 VACCINE [[id number]] Order #: [id number] Prescriptions as of 06/30/2020 Sig: FLUCONAZOLE 200 MG TABLET Take 1 tablet by mouth once d* Problem List As Of Date 06/30/2020 Noted Resolved Hot flashes [R23.2] 03/28/2011 Palpitation [R00.2] 03/28/2011 Supervision of other normal [Z34.80] 03/28/2011 05/29/2012 Abnormal US [O28.3] 06/01/2011 05/29/2012 History of recurrent miscarriages, 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 Encounter Status:Closed by [facility] on 07/01/20 [facility] 06-09-2020 CNNURSE Nurse Visit (COVAMD) ---- KIERAN QIU ([id number]) 1985 F Date Time Provider Department 06/09/20 3:20 PM COVID VACCINE VALLES COVAMD During your visit today, we recorded the following information about you: Referring Provider: RANI ARMANDO JR [[id number]] Allergies As of Date: 06/09/2020 Noted Allergy Reaction DOXYCYCLINE 09/30/2014 14 - Other: See Comments Comments: hot and tingly hands Date Reviewed: 06/24/2016 Reviewed by: Jake Oakes) Geronimo - Fully Assessed Order(s):PFIZER-[employer] NTECH COVID-19 VACCINE [[id number]] Order #: [id number] [employer] SARS-COV-2 VACCINE 2D DOSE APPT [[id number]] Order #: [id number] FUTURE Prescriptions as of 06/09/2020 Sig: FLUCONAZOLE 200 MG TABLET Take 1 tablet by mouth once d* Problem List As Of Date 06/09/2020 Noted Resolved Hot flashes [R23.2] 03/28/2011 Palpitation [R00.2] 03/28/2011 Supervision of other normal [Z34.80] 03/28/2011 05/29/2012 Abnormal US [O28.3] 06/01/2011 05/29/2012 History of recurrent miscarriages, 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 Former tobacco use. Denies alcohol and drug [...] was spent counseling and coordinating care. Normal [facility] Vital Signs Date Time Vital Sign Value Performing Clinician Maria Teresa tello 08-08-2024 10:49-0400 Body height 160.[address] Cande Yousif MD Work Phone: [facility] 08-08-2024 10:49-0400 Body mass index (BMI) [Ratio] 26.2 kg/m2 Dr. Cande Yousif MD Work Phone: [facility] 08-08-2024 10:49-0400 Body weight 67.[address] Cande Yousif MD Work Phone: [facility] 08-08-2024 10:49-0400 Diastolic blood pressure 84 mm[Hg] Dr. Cande Yousif MD Work Phone: [facility] 08-08-2024 10:49-0400 Systolic blood pressure 128 mm[Hg] Dr. Cande Yousif MD Work Phone: [facility] 08-18-2022 14:34-0400 Body height 160.[address] Cande Yousif Work Phone: [facility] 08-18-2022 14:34-0400 Body mass index (BMI) [Ratio] 27.3 kg/m2 Dr. Cande Yousif Work Phone: [facility] 08-18-2022 14:34-0400 Body temperature 98.7 [degF] Dr. Cande Yousif Work Phone: [facility] 08-18-2022 14:34-0400 Body weight 69.[address] Cande Yousif Work Phone: [facility] 08-18-2022 14:34-0400 Diastolic blood pressure 74 mm[Hg] Dr. Cande Yousif Work Phone: [facility] 08-18-2022 14:34-0400 Heart rate 56 /min Dr. Cande Yousif Work Phone: [facility] 08-18-2022 14:34-0400 Respiratory rate 14 /min Dr. Cande Yousif Work Phone: [facility] 08-18-2022 14:34-0400 SaO2% (BldA) [Mass fraction] 99 % Dr. Cande Yousif Work Phone: [facility] 08-18-2022 14:34-0400 Systolic blood pressure 120 mm[Hg] Dr. Cande Yousif Work Phone: [facility] 06-23-2022 10:01-0400 Body mass index (BMI) [Ratio] 27.3 kg/m2 Dr. Cande Yousif Work Phone: [facility] 06-23-2022 10:01-0400 Body weight 69.[address] Cande Yousif Work Phone: [facility] 06-23-2022 10:01-0400 Diastolic blood pressure 64 mm[Hg] Dr. Cande Yousif Work Phone: [facility] 06-23-2022 10:01-0400 Systolic blood pressure 112 mm[Hg] Dr. Cande Yousif Work Phone: [facility] 07-08-2021 13:52-0400 Body height 160.[address] Cande Yousif Work Phone: [facility] Work Phone: 07-08-2021 13:52-0400 Body mass index (BMI) [Ratio] 28.2 kg/m2 Dr. Cande Yousif Work Phone: [facility] Work Phone: 07-08-2021 13:52-0400 Body temperature 98.1 [degF] Dr. Cande Yousif Work Phone: [facility] Work Phone: 07-08-2021 13:52-0400 Body weight 72.[address] Cande Yousif Work Phone: [facility] Work Phone: 07-08-2021 13:52-0400 Diastolic blood pressure 70 mm[Hg] Dr. Cande Yousif Work Phone: [facility] Work Phone: 07-08-2021 13:52-0400 Heart rate 87 /min Dr. Cande Yousif Work Phone: [facility] Work Phone: 07-08-2021 13:52-0400 Respiratory rate 16 /min Dr. Cande Yousif Work Phone: [facility] Work Phone: 07-08-2021 13:52-0400 SaO2% (BldA) [Mass fraction] 98 % Dr. Cande Yousif Work Phone: [facility] Work Phone: 07-08-2021 13:52-0400 Systolic blood pressure 110 mm[Hg] Dr. Cande Yousif Work Phone: [facility] Work Phone: 04-23-2021 07:04-0500 Body height 160.[address] Cande Yousif Work Phone: [facility] Work Phone: 04-23-2021 07:04-0500 Body mass index (BMI) [Ratio] 28.5 kg/m2 Dr. Cande Yousif Work Phone: [facility] Work Phone: 04-23-2021 07:04-0500 Body temperature 98.7 [degF] Dr. Cande Yousif Work Phone: [facility] Work Phone: 04-23-2021 07:04-0500 Body weight 73.[address] Cande Yousif Work Phone: [facility] Work Phone: 04-23-2021 07:04-0500 Diastolic blood pressure 88 mm[Hg] Dr. Cande Yousif Work Phone: [facility] Work Phone: 04-23-2021 07:04-0500 Heart rate 91 /min Dr. Cande Yousif Work Phone: [facility] Work Phone: 04-23-2021 07:04-0500 Respiratory rate 16 /min Dr. Cande Yousif Work Phone: [facility] Work Phone: 04-23-2021 07:04-0500 SaO2% (BldA) [Mass fraction] 99 % Dr. Cande Yousif Work Phone: [facility] Work Phone: 04-23-2021 07:04-0500 Systolic blood pressure 140 mm[Hg] Dr. Cande Yousif Work Phone: [facility] Work Phone: Encounters Encounter Date Encounter Type Care Provider Facility Start: 12-20-2024 ambulatory Cande Cunningham ty:[facility] Start: 12-19-2024 ambulatory Delores Morel lity:[facility] Start: 12-19-2024 End: 12-19-2024 ambulatory Cande Yousif Facility:[facility] [place] [facility] Start: 10-11-2024 Encounter for genera l adult medical examination without abnormal findings Pratibha Thomas [facility] Start: 08-22-2024 End: 08-22-[address] Cande Yousif MD Work Phone: [facility] Start: 08-22-2024 End: 08-22-2024 Patient encounter procedure Pratibha RDZ -[facility] Work Phone: Start: 08-22-2024 End: 08-22-2024 ambulatory Pratibha Thomas Facility:[facility] Start: 08-08-2024 End: 08-08-2024 Patient encounter procedure Pratibha Thomas NP-C -[facility] Work Phone: Start: 08-08-2024 End: 08-08-2024 Patient encounter status Pratibha Thomas NP-C [facility] Start: 08-08-2024 End: 08-08-[address] Cande Yousif MD Work Phone: [facility] Work Phone: Start: 08-08-2024 End: 08-08-2024 ambulatory Pratibha Thomas Facility:[facility] Start: 08-18-2022 End: 08-18-[address] Cande Yosuif Work Phone: [facility] Work Phone: Start: 08-18-[address] Cande Yousif Work Phone: [facility] Start: 08-18-2022 End: 08-18-2022 Encounter for general adult medical examination without abnormal findings Dr. Cande Yousif Work Phone: [facility] Start: 08-18-2022 End: 08-18-[address] Cande Yousif Work Phone: [facility] Work Phone: Start: 06-23-2022 End: 06-23-[address] Cande Yousif Work Phone: [facility] Work Phone: Start: 04-21-2022 End: 04-21-2022 ambulatory [facility] Work Phone: Start: 04-21-2022 End: 04-21-2022 Patient encounter procedure [facility], [facility] Start: 07-08-2021 End: 07-08-[address] Cande Yousif Work Phone: [facility] Internal Medicine Start: 05-16-2021 End: 05-16-2021 Subsequent hospital visit by physician [facility] (1.5t) Radiology Comment on above: Tremor, unspecified [R25.1] Start: 04-29-2021 End: 04-29-[address] Cande Yousif Work Phone: [facility], [facility] Start: 04-23-2021 End: 04-23-[address] Cande Yousif Work Phone: [facility], [facility] Procedures Date Procedure Procedure Detail Performing Clinician Start: 08-22-[address] Rios Yousif MD Work Phone: Start: 08-08-2024 Vitamin [...] profile DTAP,TDAP,TD (3 - Td or Tdap) [facility] Start: 08-08-2024 CBC W Auto Differential panel - Blood [facility] Start: 08-08-2024 Comprehensive metabolic 2000 panel - Serum or Plasma [facility] Start: 08-08-2024 Lipid 1996 panel - Serum or Plasma [facility] Start: 08-08-2024 T4 free measurement [facility] Start: 08-08-2024 Thyroid stimulating hormone measurement [facility] Start: 08-08-2024 Vitamin D, 1,25-dihydroxy measurement [facility] Start: 10-14-2021 Influenza vaccination INFLUENZA (Season Ended) [facility] Start: 04-23-2021 Patient referral [facility] Work Phone: Start: 11-30-2020 COVID-19 VACCINE (3 - Booster for Pfizer series) COVID-19 VACCINE (3 - Booster for Pfizer series) [facility] Start: 05-29-2018 PAP TESTING PAP TESTING [facility] Start: 2016 HPV TESTING HPV TESTING [facility] Start: 2004 HEPATITIS C SCREENING HEPATITIS C SCREENING [facility] Start: 1998 Adult depression screening assessment DEPRESSION SCREENING [facility] Alanine aminotransfe rase [Enzymatic activity/volume] in Serum or Plasma [facility] Albumin [Mass/volume ] in Serum or Plasma [facility] Alkaline phosphatase [Enzymatic activity/volume] in Serum or Plasma [facility] Anion gap in Serum or Plasma [facility] Bilirubin, total measurement [facility] BUN/Creatinine ratio [facility] Calcium [Mass/volume ] in Serum or Plasma [facility] Carbon dioxide, tota l [Moles/volume] in Central venous blood [facility] Cholesterol [Mass/vo lume] in Serum or Plasma [facility] Cholesterol in HDL [Mass/volume] in Serum or Plasma [facility] Creatinine [Mass/vol ume] in Serum or Plasma [facility] Erythrocyte mean cor puscular volume determination [facility] Glucose [Mass/volume ] in Serum or Plasma [facility] Hematocrit [Volume F raction] of Blood [facility] Hemoglobin [Mass/vol ume] in Blood [facility] Leukocytes [#/volume ] in Blood [facility] Low density lipoprot ein cholesterol measurement [facility] Mean corpuscular hem oglobin concentration determination [facility] Mean corpuscular hem oglobin determination [facility] Measurement of renal function [facility] Neutrophil count [facility] Neutrophil percent differential count [facility] Patient referral [facility] Work Phone: Platelets [#/volume] in Blood [facility] Potassium measurement [facility] Red blood cell count [facility] Red cell distributio n width determination [facility] Serum chloride measurement [facility] Sodium measurement [facility] Total cholesterol:HD L ratio measurement [facility] Total protein measurement [facility] Triglycerides measurement [facility] Urea nitrogen [Mass/ volume] in Serum or Plasma [facility] US Pelvis [facility] VLDL cholesterol measurement [facility] Immunizations Immunization Date Immunization Notes Care Provider Amparo turner 06-30-2020 Covid (Pfizer) Dr. Cande Yousif Work Phone: [facility] Work Phone: 06-09-2020 Covid (Pfizer) Dr. Cande Yousif Work Phone: [facility] 10-19-2018 tetanus toxoid, redu feliz diphtheria toxoid, and acellular pertussis vaccine, adsorbed Dr. Cande Yousif Work Phone: [facility] 10-19-2018 diphtheria, tetanus toxoids and acellular pertussis vaccine, unspecified formulation Dr. Cande Yousif Work Phone: [facility] Work Phone: 06-24-2016 tetanus toxoid, redu feliz diphtheria toxoid, and acellular pertussis vaccine, adsorbed Mri (1.5t) [facility] 03-28-2011 influenza virus vaccine, unspecified formulation Mri (1.5t) [facility] 11-14-2007 tetanus toxoid, redu feliz diphtheria toxoid, and acellular pertussis vaccine, adsorbed Mri (1.5t) [facility] Payers Date Payer Category Payer Unknown [id number] 2024 Self-pay [id number] 2024 Unknown [id number] 2018 Unknown MMO MMO [employer] [id number] 2018-Present [phone] [address] [place] [address] PPO [id number] Unknown [id number] Unknown [id number] Unknown [id number] Unknown [id number] Unknown [id number] Unknown [id number] Unknown [id number] Social History Date Type Detail Facility Start: 04-23-2021 End: 08-18-2022 Tobacco smoking status CAIS Unknown if ever smoked [facility] Start: 01-19-2019 None [facility] Start: 1985 Sex Assigned At Female [facility] Start: 02-02-2011 [facility] Work Phone: History of tobacco use Cigarette Smoker [facility] Work Phone: Start: 02-02-2011 Cigarettes smoked current (pack per day) - Reported 0.4 [facility] Start: 02-02-2011 Tobacco use and exposure Smokeless tobacco non-user [facility] Work Phone: Start: 06-24-2016 Alcohol intake Current drinke r of alcohol (finding) [facility] Start: 08-10-2011 History SDOH Alcohol Comment occassionally [facility] Start: 1985 Sex Assigned At Not on file [facility] Start: 05-06-2021 End: 05-16-2021 Exposure to SARS-CoV-2 (event) Not sure [facility] Start: 08-18-2022 [facility] Clinical Notes 06-01-2011 to 08-23-2024 Note Date & Type Note Facility 07-11-2025 Radiology Diagnostic study note [facility] Imaging Services [address] [place], [place] [id number] Pelvic w/ Transvaginal MR#: [id number] Acct: [id number] Name: KIERAN QIU Rep #: [id number] : 1985 F 38 From: Jus Ellis MD PCP: Dr. Cande Yousif MD Status: R EG CLI Study:Pelvic w/ Transvaginal Date of Exam: 08/22/24 Exam# [id number] Ordering Dr: Pratibha Thomas PROCEDURE: PELVIC W/ TRANSVAGINAL 08/22/2024 REASON FOR [...] suggest PCO. Please correlate clinically. Reading Location: [id number] CC: SHIPPING CHECKER-Nahun Thomas; Dr. 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 Estimator: Signed [facility] 08-08-2024 Evaluation note Diagnosis Onset Date Resolution Abnormal uterine bleeding acute August 08, 2024 10:37am Hypercholesteremia acute July 152024 10:37am Thyromegaly acute August 08 10:37am Encounter for routine gynecological examination noneactive July 152024 10:37am [facility] Work Phone: 1(175) 616-605204-03-2022 NoteHNO ID: [id number] Author: JOSE R Higgins Service: Radiology Author Type: National Facilities Manager Type: Progress Notes Filed: 05/16/2021 4:17 PM [...] Qiu DATE: May 16, 2021 TIME: 4:14 PM[place] [id number] History of Present illness Narrative* JOSE R [...] 2021 TIME: 4:14 PM [facility] History of Past illness Narrative* Problem Noted Date Resolved Date Abnormal 06/01/2011 05/29/2012 Overview: Possible heart defect, small stomach bubble, bilateral choroid plexus cysts, increased risk trisomy 18- amniocentesis pending Supervision of other normal 03/28/2011 05/29/2012 documented as of this encounter (statuses as of 05/17/2021) [facility] Diagnosis Onset Date Resolution Status Paralysis of right upper extremity acute Thyroid nodule acute Tremor acute Vitamin D deficiency acute [facility] Work Phone: Evaluation note* Diagnosis Onset Date Resolution Status Paralysis of right upper extremity acute Tremor acute Vitamin D deficiency acute Thyroid nodule chronic Paralysis of right upper extremity acute Hyperlipidemia chronic Thyroid nodule chronic [facility] Work Phone: Evaluation noteNo assessment information available [facility] Work Phone: Evaluation note* Diagnosis Onset Date Resolution Status Encounter for routine gynecological examination noneactive Preventative health care acu te Screening for thyroid disorder acute Thyromegaly acute [facility] Work Phone: Evaluation note* Diagnosis Onset Date Resolution Status Admit Date Abnormal uterine bleeding acute August 08, 2024 10:37am Encounter for routine gynecological examination noneactive July 152024 10:37am [facility] Work Phone[facility] Work [facility] Work [facility] Work Phone: Reason for referral (narrative)No reason for referral information availableBloomington Medical Services Work Phone: Reason for visit Narrative* Diagnostic Procedure Only (Routine) - Closed Specialty Diagnoses / Procedures Referred By Contac t Referred To Contact Radiology / RADIO MRI [facility] Diagnoses MRI CERVICAL SPINE W/WO CONTRAST,[G83.21],[R25 .1],Ordering Physician Dr. Cande Infante, Nica Procedures MRI WWO NEU1 B 300 Cande Yousif MD [address] [place] [address] Radio Mri [facility] [address] [place] [address] Referral ID Status Reason Start Date Expiration Date Visits Re quested Visits Authorized [id number] Closed 04/27/2021 06/11/2021 2 2 [facility] Summary Purpose Family History No Family History Records Found Relationship Condition Age at Onset Recorded Date/T jeremy grandfather Cardiac disease Unknown grandmother Malignant neoplasm of breast Unknown mother Diabetes mellitus Unknown Disorder of thyroid Unknown father Diabetes mellitus Unknown Advance Directives No Advanced Directives Records Found Advance Directive Response Recorded Date/ Time Living Will No January 18 8:49pm Power of Activities Leader No January 18, 2019 8:49pm Documents on File Type Date Recorded Patient Clinic Nurse Expl anation Advance Directive(s) 06/24/2016 7:31 PM Chief Complaint and Reason for Visit Chief Complaint Admit Date 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) August 08, 2024 10:3 7am ABNORMAL UTERINE [...] Chief Complaint THYROID NODULE Chief Complaint 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) Annual Reason for Visit Encounter for routin e gynecological examination Preventative health care Screening for thyroid disorder Thyromegaly Chief Complaint Admit Date 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) August 08, 2024 10:3 7am Reason for Visit Admit Date Abnormal uterine bleeding August 08 10:37am Encounter for routine gynecological exam ination August 08, 2024 10:37am Additional Source Comments INFORMATION SOURCE (unrecogn ized section and content) DATE CREATED AUTHOR 09/13/2018 [facility] DATE CREATED AUTHOR AUTHOR'S ORGANIZ ATION 05/18/2021 [facility] DATE CREATED AUTHOR AUTHOR'S ORGANIZ ATION 12/21/2024 [facility] Goals (unrecognized section and content) Goals [...] or prosecute any alcohol or drug abuse patient.[facility] Care Teams (unrecognized sec tion and content) Sales And Service Agent Relationship Specialty Start Date End Date Cande Yousif MD [address] [place] [address] PCP - General Internal Medicine 04/29/21 Team [...] Primary Care Provider, Refer ring Provider Active Taylor Mendoza NP, SHIPPING CHECKER-C Attending Provider Active Team Status: Inactive Member [...] August 22, 2024 End: August 22, 2024 KJAAL Miller Attending Provider Active Start: August 22, [...] BE BASED ON THE PRIMARY CLINICAL RECORDS. [employer] [facility]. provides no warranty or guarantee of the accuracy or completeness of information in this document.
== END | disposition home or self-care (01) ==
LOC: BWCLAB 16:40
PROVIDERS: PCP Internal Medicine; Visit Provider Obstetrics & Gynecology
DX: D72.819 Decreased white blood cell count, unspecified (principal); E01.0 Iodine-deficiency related diffuse (endemic) goiter
CPT/HCPCS: 36415; 84443; 85025

== ENCOUNTER 2025-02-11 05:22 | Day surgery (SDC) | payer OTHER, SELFPAY ==
--- NOTE | 2025-02-10 22:25 | PCM.HP.BLA ---
History and Physical Date of Admission: 02/11/25 Vital Signs 12/20/2515:02 01/29/2513:09 Height 5 ft 3 in 5 ft 3 in Weight: 160 lb 8 oz BMI 28.4 BP 129/84 H Intake Visit Reasons: Preop TVHBS [employer] Launch Weapons Technician Required: No Is patient in pain?: No Allergies doxycycline Allergy (Mild, Verified 01/29/25 13:11) Other Shhtiea-Upy-Jsa Reductase Inhibitor (Ibibtsa-HKP-LxY Reductase Inhibitor) Allergy (Unknown, Verified 01/29/25 13:11) Unknown Medications ?Medication ?Instructions ?Recorded ?Confirmed ?Type NK 01/29/25 01/29/25 History Post menopausal: No Patient : No : No PFSH Medical History Wears contact lenses Wears glasses Alcohol use Anemia Migraine headache Gastric reflux Former smoker History of echocardiogram History of irregular heartbeat Hypercholesteremia Preventative health care Screening for thyroid disorder Paralysis of right upper extremity Vitamin D deficiency Tremor Paralysis of left upper extremity Thyroid nodule Breast pain, left Change in skin mole Hyperlipidemia Surgical History (Updated 01/29/25 @ 13:[address] Delores García MD) History of wisdom tooth extraction, class II edentulism H/O toe surgery H/O LEEP D&E H/O dilation and curettage Family History Grandfather Heart disease Grandmother Breast cancer Mother Diabetes Thyroid disorder Father Diabetes Social History current occupational status: employed current occupation: [employer] Smoking Status: Former smoker alcohol intake: never substance use type: does not use caffeine: Yes what type of physical activity do you participate in: walking seatbelt use: always do you feel safe at home: Yes additional social history: [employer] HPI Preop TVHBS Details: Intake Vital Signs 08/08/2509:49 12/20/2515:01 12/20/2515:02 Height 5 ft 3 in 5 ft 3 in 5 ft 3 in Weight: 148 lb 161 lb 3 oz BMI 26.2 28.5 BP 128/84 H 132/84 H Intake Visit Reasons: hyst vs tubal consult Air Launch Weapons Technician Required: No Is patient in pain?: No Allergies doxycycline Allergy (Mild, Verified 12/19/24 16:02) Other Sxmxead-ZHZ-SdG Reductase Inhibitor Allergy (Unknown, Verified 12/19/24 16:02) Unknown Medications ?Medication ?Instructions ?Recorded ?Confirmed ?Type multivitamin 1 tab PO DAILY 04/23/21 12/19/24 History krill oil 500 mg capsule mg PO 06/23/22 12/19/24 History tranexamic acid 650 mg tablet 1,300 mg (2 x 650 mg) PO TID 5 12/19/24 12/19/24 Rx days #30 tabs Is last menstrual period known: Yes Last Menstrual Period: 11/29/24 Post menopausal: No Patient : No : No PFSH Medical History Hypercholesteremia Preventative health care Screening for thyroid disorder Paralysis of right upper extremity Vitamin D deficiency Tremor Paralysis of left upper extremity Thyroid nodule Breast pain, left Change in skin mole Hyperlipidemia Surgical History History of wisdom tooth extraction, class II edentulism H/O toe surgery H/O LEEP D&E H/O dilation and curettage Family History Grandfather Heart disease Grandmother Breast cancer Mother Diabetes Thyroid disorder Father Diabetes Social History current occupational status: employed current occupation: [employer] Smoking Status: Former smoker alcohol intake: never substance use type: does not use caffeine: Yes what type of physical activity do you participate in: walking seatbelt use: always do you feel safe at home: Yes additional social history: [employer] HPI hyst vs tubal consult Details: HPI: The patient is a 39-year-old female with a history of irregular and heavy menstrual bleeding, migraines with aura, and constipation presenting for evaluation of permanent contraception and management of menstrual irregularities. Menstrual History - Reports irregular menstrual cycles ranging from 25 to 48 days. - Describes menstrual bleeding as really heavy, sometimes soaking through a maxi pad at work. - Denies hot flashes or night sweats. - Denies acne. - Denies significant mood changes but reports PMS symptoms. - Denies any vision loss or daily headaches. - Denies any significant changes in sleep patterns, stating she sleeps overall good. - Denies any significant changes in energy levels, though she does report feeling tired all the time. Contraception Counseling & Management - Expresses desire for permanent contraception; has tried control pills in the past but discontinued due to weight gain and mood changes. 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 - Recently had an early this year and does not want to go through that experience again. Migraines - Experiences migraines with aura, typically premenstrual. Pelvic Pain - Reports constipation and difficulty with bowel movements, sometimes requiring manual assistance. - Feels a vaginal bulge and pressure, suspecting rectal involvement. - Has hemorrhoids and has had fissures in the past. - Experiences occasional urinary leakage with sneezing, usually when constipated. Weight Management - Reports a recent weight gain of approximately 20 pounds, currently weighing around 160 pounds. Past Medical History - Polycystic Ovarian Syndrome (PCOS): Diagnosed based on ultrasound findings showing polycystic ovaries. 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 ROS: Constitutional: (+) weight gain, (+) fatigue, (-) insomnia Neurological: (+) migraine with aura Gastrointestinal: (+) constipation Genitourinary: (+) irregular menses, (+) heavy menstrual bleeding, (+) stress urinary incontinence Skin: (+) hirsutism, (-) acne Psychiatric: (-) mood change Endocrine: (-) hot flashes, (-) night sweats PhysicalExam: GENERAL: Pleasant; overweight; in no apparent distress PULMONARY: normal inspiratory effort ABDOMEN: soft, non-tender, no masses : - PELVIC: external genitalia normal, normal Bartholin's glands, urethra, [place]'s glands, no vulvar lesions, no cervical lesions, good vaginal support, physiologic discharge present, normal appearing perineal body and perianal region - BIMANUAL: uterus normal size, shape and consistency, no adnexal masses, non-tender - Patient consent for exam received NEURO: alert and oriented x3 EXTREMITIES: normal Female Reproductive History Last Menstrual Period: 11/29/24 History 4 Elective abortions Hx Para 1 Spontaneous abortions Hx # Term Pregnancies Ectopic pregnancies Hx # Pregnancies Multiple births # of living children 1 Past Pregnancies Del. Date Name GA/Weeks Outcome Route Bth Weight Infant Gen Labor Lgth Anesthesia Del Locatn Provider FOB Unknown SAB Unknown EAB Unknown Chemical 01/19/19 [place] live - full term 8lbs Female epidural [facility] Office Procedures Endometrial Biopsy Endometrial Biopsy Test: Yes declined Consent Signed: Yes Time out checklist: patient, procedure, site marked/identified, positioning of patient, supplies available, allergies confirmed and team agrees on procedure Time out time: 17:03 tenaculum used: No dilator used: No Details: Cervix prepped with betadine and pipelle inserted into uterus without complication. Specimen obtained and sent to lab for analysis. All instruments removed from vagina without complications. Excellent hemostasis noted. Coding Level of Care Code Off vis,est,level 4 Diagnoses Abnormal uterine bleeding N93.9 Menstrual migraine G43.829 CPT Codes Endometrial Biopsy (21404) Assessment and Plan Assessment and Plan (1) Abnormal uterine bleeding: Status: Acute Comment: previously failed OCP. trial lysteda (2) Menstrual migraine: Status: Acute Comment: not ideal hormonal candidate Orders: Orders Endometrial Biopsy Today N93.9 - Abnormal uterine and vaginal bleeding, unspecified Medications: New tranexamic acid begin at onset of menstrual bleeding 1,300 mg (2 x 650 mg) PO TID 30 tabs 4RF 5 days After discussing the patient's diagnosis and treatment plan options, patient wishes to proceed with surgical management. I have discussed with the patient the risks, benefits, and alternatives of the procedure which include but are not limited to risks of anesthesia, bleeding, infection, possible damage to bowel, bladder, or surrounding vasculature which could lead to additional surgery to evaluate any complications. Patient agrees to procedure and wishes to proceed. ACOG/uptodate references given for additional information regarding procedure. History 4 Elective abortions Hx Para 1 Spontaneous abortions Hx # Term Pregnancies Ectopic pregnancies Hx # Pregnancies Multiple births # of living children 1 Past Pregnancies Del. Date Name GA/Weeks Outcome Route Bth Weight Infant Gen Labor Lgth Anesthesia Del Locatn Provider FOB Unknown SAB Unknown EAB Unknown Chemical 01/19/19 [place] live - full term 8lbs Female epidural [facility] Coding Level of Care Code No Charge Diagnoses Abnormal uterine bleeding N93.9 Menstrual migraine G43.829 Additional Codes SDOH Screening - Does the patient want assistance with any of the above?: No (G0136) Assessment and Plan Assessment and Plan (1) Abnormal uterine bleeding: Status: Acute Comment: previously failed OCP. trial lysteda plan tvhbs if fails (2) Menstrual migraine: Status: Acute Comment: not ideal hormonal candidate Assessment/Plan: # Abnormal uterine and vaginal bleeding, unspecified (N93.9): - Experiencing irregular cycles ranging from 25 to 48 days with heavy flow, leading to significant inconvenience at work. - Previously intolerant of oral contraceptives due to weight gain and mood disturbances, and declined IUD placement. - Discussed non-hormonal option (tranexamic acid/Lysteta) to reduce menstrual flow duration and volume; slight increased risk of thrombotic events reviewed. Prescribed to take three times daily for five days at the onset of each menses. - Educated patient about possible surgical interventions, including hysterectomy if bleeding remains uncontrolled after medication trials. - Performed endometrial biopsy today to rule out any uterine pathology; patient counseled about transient cramping during procedure. - Ordered hormone panel (including testosterone, estrogen) to further evaluate abnormal bleeding etiology. - Advised possible assessment for clotting disorders if pertinent family history is confirmed. - Informed about potential insurance requirements mandating trial of medical therapy prior to approving definitive surgical management. - Discussed scheduling tentative hysterectomy near year?s end if heavy bleeding persists; patient acknowledges risks (anesthesia, bleeding, infection, prolapse) and understands necessity of remaining workup before proceeding. # Migraine with aura, not intractable, without status migrainosus (G43.109): - Menstrual-related migraines present primarily in the premenstrual phase. - No acute medication changes undertaken at present; patient advised to report any escalation or increased frequency. Patient Instructions: - Begin taking Lysteda (tranexamic acid) at the start of your next period: 3 times a day for up to 5 days to help lighten and shorten your bleeding. The prescription has been sent to your pharmacy. - Be aware of a slight increased risk of blood clots with Lysteda. If you notice any new leg swelling, pain, or sudden shortness of breath, seek medical attention right away. - Blood was drawn today to check your hormone levels (including testosterone and estrogen) and to screen for any blood-clotting disorders before continuing therapy. - An endometrial biopsy was performed during this visit to examine the lining of your uterus for any abnormal changes. - We will review how Lysteda works for you over the next few menstrual cycles and discuss next steps based on your response. - You are tentatively scheduled for a hysterectomy evaluation at the end of the year (January) if medication does not adequately control your bleeding. - If you choose to proceed with a hysterectomy in the future, you will receive antibiotics and low-dose blood thinners to reduce infection and clot risks; possible complications include reactions to anesthesia, bleeding, infection, and potential changes in pelvic support. After discussing the patient's diagnosis and treatment plan options, patient wishes to proceed with surgical management. I have discussed with the patient the risks, benefits, and alternatives of the procedure which include but are not limited to risks of anesthesia, bleeding, infection, possible damage to bowel, bladder, or surrounding vasculature which could lead to additional surgery to evaluate any complications. Patient agrees to procedure and wishes to proceed. ACOG/uptodate references given for additional information regarding procedure. Assessment & Plan Assessment/Plan (1) Abnormal uterine bleeding: (2) Menstrual migraine:
[2025-02-11] VITALS (13 sets, daily range): BP systolic 119–140; BP diastolic 75–93; PULSE 77–96; RESP 12–16; TEMP 36.6–36.8; O2SAT 97–100; BMI 29.0
--- OUTSIDE RECORDS SUMMARY | 2025-02-11 05:25 | XMS RPT_ITS | CCD ---
Author Organization [facility] Care Team Providers Care Senior Accounting Specialist Name Role Phone Dr. Cande Yousif Primary Care Provider [phone] Dr. Cande Yousif Attending Provider [phone] Dr. Cande Yousif Referring Provider [phone] Cande Yousif MD Primary Care Provider [phone] Dr. Cande Yousif Primary Care Provider [phone] Dr. Cande Yousif Referring Provider [phone] Reji LAUNCH STEWARD, LAUNCH STEWARD-C Taylor Attending Provider Dr. Cande Yousif Attending Provider [phone] Dr. Cande Yousif MD Primary Care Provider Dr. Cande Yousif MD Referring Provider [phone] Martha LAUNCH STEWARD-CPratibha Attending Provider Martha LAUNCH STEWARD-CPratibha Referring Provider Pratibha Thomas Attending Unavailable Oleghe, Efewongbe Primary Care Unavailable Oleghe, Efewongbe Referring Unavailable Pratibha Thomas Attending Unavailable Pratibha Thomas Referring Unavailable Oleghe, Efewongbe Primary Care Unavailable Pratibha Thomas Attending Unavailable Pratibha Thomas Referring Unavailable Oleghe, Efewongbe Primary Care Unavailable Oleghe, Efewongbe Primary Care Unavailable Delores García Attending Unavailable Delores García Attending Unavailable Delores García Referring Unavailable Oleghe, Efewongbe Primary Care Unavailable Oleghe, Efewongbe Primary Care Unavailable Delores García Attending Unavailable Delores García Attending Unavailable Cande Yousif Primary Care Unavailable Cande Yousif Referring Unavailable Allergies Allergy Classification Reported Allergen(s) Allergy Type Date of Onset Reaction(s) Facility (9 sources) Doxycycline Drug Allergy 5 Other: See Comments [facility] Work Phone: (7 sources) Ukjzxdb-Imi-Hik Reductase Inhibitor; Translations: [Dzqjijl-Qjs-Zd a Reductase Inhibitor] Allergy to substance 2 Unknown [facility] Comment on above: Father with genetic mutation and unable to use statins. (1 source) Doxycycline Drug Allergy 5 [facility] Repository Medications Current Medications Medication Drug Class(es) [...] massage in to cover area estrogens, conjugated (detention) 0.625 mg/ml vaginal cream (8 sources) Estrogen [...] Comment on above: Take 1 tablet by [facility] once daily. naproxen 250 mg oral tablet (8 sources) Nonsteroidal Anti-inflammatory Drug Start: 01-21-2019 End: 02-26-2019 take 250-500 mg by mouth every eight hours as needed for pain Naproxen 250 MG tablet Discontinued 250 - 500 mg PO EVERY 8 HOURS NEEDED as needed for MILD PAIN 30 January 21, 2019 1:00am February 26, 2019 1:26pm Pnv #11-Adle-Odxmi Acid-Omega3 30 mg iron-10 mg iron-1 mg capsule (3 sources) Start: 08-01-2018 End: 03-05-2020 Pnv #96-Dztv-Bvsvn Acid-Omega3 30 mg iron-10 mg iron-1 mg capsule Discontinued 1 NMA PO DAILY 0 August 01, 2018 12:00am March 05, 2020 3:59pm Start: 08-01-2018 End: 03-05-2020 Pnv #94-Yxer-Ckpcc Acid-Omeg a3 30 mg iron-10 mg iron-1 [...] te Episodic/Chronic Diseases of white blood cells (3 sources) Leukopenia; Translations: [Decreased white blood cell count, unspecified] Onset: 12-23-2024 08-08-2024 Chronic Disorders of lipid metabolism (15 [...] Goiter; 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, [address] Absolute Neut 3.8 X10 3/uL Normal 2.0-7.7 [facility] Comment on above: Performed By: #### L 501.9520, L100.0100 #### [facility] [address] [place], [address] Basophils/100 WBC (Bld) 0.5 % Normal 0-1 [facility] Comment on above: Performed By: #### L 501.9520, L100.0100 #### [facility] [address] [place], [address] Eosinophils/100 WBC (Bld) 3.4 % Normal 0-5 [facility] Comment on above: Performed By: #### L 501.9520, L100.0100 #### [facility] [address] [place], [address] Erythrocyte distribution width (RBC) [Ratio] 12.6 % Normal 11.6-14.6 [facility] Comment on above: Performed By: #### L 501.9520, L100.0100 #### [facility] [address] [place], [address] Hematocrit (Bld) [Volume fraction] 36.2 % Low 37-47 [facility] Comment on above: Performed By: #### L 501.9520, L100.0100 #### [facility] [address] [place], [address] Hemoglobin (Bld) [Mass/Vol] 12.7 g/dL Normal 12.0-15.0 [facility] Comment on above: Performed By: #### L 501.9520, L100.0100 #### [facility] [address] [place], [address] IG% 0.400 Normal 0.0-0.9 [facility] Comment on above: Result Comment: IG% - Immature Granulocytes (promyelocytes, myelocytes and metamyelocytes) > 1% indicates that a LEFT SHIFT is Present. Performed By: #### L 501.9520, L100.0100 #### [facility] [address] [place], [address] Lymphocytes/100 WBC (Bld) 21.0 % Normal 19-41 [facility] Comment on above: Performed By: #### L 501.9520, L100.0100 #### [facility] [address] [place], [address] MCH (RBC) [Entitic mass] 32.5 pg High 27.0-32.0 [facility] Comment on above: Performed By: #### L 501.9520, L100.0100 #### [facility] [address] [place], [address] MCHC (RBC) [Mass/Vol] 35.1 g/dL Normal 32-36 [facility] Comment on above: Performed By: #### L 501.9519, L100.0100 #### [facility] [address] [place], [address] MCV (RBC) [Entitic vol] 92.6 fL Normal 81-99 [facility] Comment on above: Performed By: #### L 501.9519, L100.0100 #### [facility] [address] [place], [address] Monocytes/100 WBC (Bld) 6.5 % Normal 0-10 [facility] Comment on above: Performed By: #### L 501.9519, L100.0100 #### [facility] [address] [place], [address] Neutrophils/100 WBC (Bld) 68.2 % Normal 47-70 [facility] Comment on above: Performed By: #### L 501.9519, L100.0100 #### [facility] [address] [place], [address] Nucleated RBC (Bld) [#/Vol] 0 10*3/uL Normal 0-5 [facility] Comment on above: Performed By: #### L 501.9520, L100.0100 #### [facility] [address] [place], [address] Platelet mean volume (Bld) [Entitic vol] 10.5 fL Normal 6.2-12.0 [facility] Comment on above: Performed By: #### L 501.9520, L100.0100 #### [facility] [address] [place], [address] Platelets (Bld) [#/Vol] 230 10*3/uL Normal 150-450 [facility] Comment on above: Performed By: #### L 501.9520, L100.0100 #### [facility] [address] [place], [address] RBC (Bld) [#/Vol] 3.91 10*6/uL Low 4.2-5.[address] [facility] Comment on above: Performed By: #### L 501.9520, L100.0100 #### [facility] [address] [place], [address] RDW SD 42.4 fl Normal 35.1-43.9 [facility] Comment on above: Performed By: #### L 501.9520, L100.0100 #### [facility] [address] [place], [address] WBC (Bld) [#/Vol] 5.5 10*3/uL Normal 4.4-11.0 [facility] Comment on above: Performed By: #### L 501.9520, L100.0100 #### [facility] [address] [place], [address] Thyroid Stim Hormone (TSH)on 12-23-2024 TSH 2.060 uIU/mL Normal 0.300-4.200 [facility] Comment on above: Performed By: #### L 506.1001, L500.4050, L100.0100, L506.0400, L500.4100, L501.9520 #### [facility] [address] [place], [address] Ecommerce Manager Office Visit Reporton 12-19-2024 Ecommerce Manager Office Visit Report [facility] [address], [address] [place] [address] OFFICE VISIT Date of Service: 12/19/24 MR#: [id number] Acct: [id number] Name: KIERAN QIU Rep #: [id number] : 1985 Provider: Dr. Delores talamantes MD Age/Sex: 39/F Location: [facility] Status: Signed Intake Vital Signs 08/08/24 10:49 12/19/24 16:01 12/19/24 16:02 Height 5 ft 3 in 5 ft 3 in 5 ft 3 in Weight: 148 lb 161 lb 3 oz BMI 26.2 28.5 BP 128/84 H 132/84 H Intake Visit Reasons: hyst vs tubal consult Formulator Required: No Is patient in pain?: No Allergies doxycycline Allergy (Mild, Verified 12/19/24 16:02) Other Btmjzfa-PYZ-AyV Reductase Inhibitor Allergy (Unknown, Verified 12/19/24 16:02) [...] menopausal: No Patient : No : No [facility] Medical History Hypercholesteremia Preventative health care Screening [...] History current occupational status: employed current occupation: [employer] Smoking Status: Former smoker alcohol [...] - Anal fissures Social Hx - 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 Normal [facility] Pelvic w/ Transvaginalon Pelvic w/ Transvaginal [facility] [address] [place], [place] [id number] Pelvic w/ Transvaginal MR#: [id number] Acct: [id number] Name: KIERAN QIU Rep #: [id number] : 1985 F 38 From: Yousuf worthington MD PCP: Dr. Cande Yousif MD Status: [facility] CLI Study: Pelvic w/ Transvaginal Date of Exam: 08/22/24 Exam# [id number] Ordering Dr: Pratibha Thomas LAUNCH STEWARD-C PROCEDURE: PELVIC W/ TRANSVAGINAL 08/22/2024 REASON FOR [...] suggest PCO. Please correlate clinically. Reading [facility] [address] CC: KAJAL Thomas; Dr. Cande Yousif MD 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Signed Normal [facility] Thyroid Peroxidase ABon 07-0 THYR PEROX AB < 9 Normal 0-34 [facility] Comment on above: Result Comment: Perf ormed at: CB - [facility] [place] [id number] Windows Desktop Engineer: John Phillips PhD, Phone: [phone] Performed By: #### L 506.1001, L500.4050, L100.0100, L506.0400, L500.4100, L501.9520 #### [facility] [address] [place], [place], [id number] Absolute lymphocyte countOrd ered By: Pratibha Thomas on 08-08-2024 Lymphocytes Auto (Unsp spec) [#/Vol] 0.81 10*3/uL Low 0.83-4.51 [facility] Absolute neutrophil countOrd ered By: Pratibha Thomas on 08-08-2024 Neutrophils (Bld) [#/Vol] 2.4 10*3/uL 2.0-7.7 [facility] Anion gap in Serum or Plasma Ordered By: Pratibha Thomas on 08-08-2024 Anion gap [Moles/Vol] 13 mmol/L 5-15 [facility] Automated lymphocyte count a s percentage of total leukocytesOrdered By: Pratibha Thomas on 08-08-2024 Lymphocytes/100 WBC Auto (Unsp spec) 23.1 % 19- [facility] BUN/creatinine ratioOrdered By: Pratibha Martha on 08-08-2024 Urea nitrogen/Creatinine [Mass ratio] 12.1 mg/mg 10- [facility] Basophil percentageOrdered B y: Pratibha Martha on 08-08-2024 Basophils/100 WBC (Bld) 0.9 % 0-1 [facility] Bilirubin, totalOrdered By: Pratibha Thomas on 08-08-2024 Bilirubin [Mass/Vol] 0.56 mg/dL 0.00-1.30 [facility] CBC W/Diff, Automatedon 07-15 Absolute Lymph 0.81 X10 3/uL Low 0.83-4.51 [facility] Comment on above: Performed By: #### L 506.1001, L500.4050, L100.0100, L506.0400, L500.4100, L501.9520 #### [facility] [address] [place], [address] Absolute Neut 2.4 X10 3/uL Normal 2.0-7.7 [facility] Comment on above: Performed By: #### L 506.1001, L500.4050, L100.0100, L506.0400, L500.4100, L501.9520 #### [facility] [address] [place], [address] Basophils/100 WBC (Bld) 0.9 % Normal 0-1 [facility] Comment on above: Performed By: #### L 506.1001, L500.4050, L100.0100, L506.0400, L500.4100, L501.9520 #### [facility] [address] [place], [address] Eosinophils/100 WBC (Bld) 1.7 % Normal 0-5 [facility] Comment on above: Performed By: #### L 506.1001, L500.4050, L100.0100, L506.0400, L500.4100, L501.9520 #### [facility] [address] [place], [address] Erythrocyte distribution width (RBC) [Ratio] 12.3 % Normal 11.6-14.6 [facility] Comment on above: Performed By: #### L 506.1001, L500.4050, L100.0100, L506.0400, L500.4100, L501.9520 #### [facility] [address] [place], [address] Hematocrit (Bld) [Volume fraction] 40.3 % Normal 37-47 [facility] Comment on above: Performed By: #### L 506.1001, L500.4050, L100.0100, L506.0400, L500.4100, L501.9520 #### [facility] [address] [place], [address] Hemoglobin (Bld) [Mass/Vol] 14.0 g/dL Normal 12.0-15.0 [facility] Comment on above: Performed By: #### L 506.1001, L500.4050, L100.0100, L506.0400, L500.4100, L501.9520 #### [facility] [address] [place], [address] IG% 0.300 Normal 0.0-0.9 [facility] Comment on above: Result Comment: IG% - Immature Granulocytes (promyelocytes, myelocytes and metamyelocytes) > 1% indicates that a LEFT SHIFT is Present. Performed By: #### L 506.1001, L500.4050, L100.0100, L506.0400, L500.4100, L501.9520 #### [facility] [address] [place], [address] Lymphocytes/100 WBC (Bld) 23.1 % Normal 19-41 [facility] Comment on above: Performed By: #### L 506.1001, L500.4050, L100.0100, L506.0400, L500.4100, L501.9520 #### [facility] [address] [place], [address] MCH (RBC) [Entitic mass] 32.9 pg High 27.0-32.0 [facility] Comment on above: Performed By: #### L 506.1001, L500.4050, L100.0100, L506.0400, L500.4100, L501.9520 #### [facility] [address] [place], [address] MCHC (RBC) [Mass/Vol] 34.7 g/dL Normal 32-36 [facility] Comment on above: Performed By: #### L 506.1001, L500.4050, L100.0100, L506.0400, L500.4100, L501.9520 #### [facility] [address] [place], [address] MCV (RBC) [Entitic vol] 94.6 fL Normal 81-99 [facility] Comment on above: Performed By: #### L 506.1001, L500.4050, L100.0100, L506.0400, L500.4100, L501.9520 #### [facility] [address] [place], [address] Monocytes/100 WBC (Bld) 6.6 % Normal 0-10 [facility] Comment on above: Performed By: #### L 506.1001, L500.4050, L100.0100, L506.0400, L500.4100, L501.9520 #### [facility] [address] [place], [address] Neutrophils/100 WBC (Bld) 67.4 % Normal 47-70 [facility] Comment on above: Performed By: #### L 506.1001, L500.4050, L100.0100, L506.0400, L500.4100, L501.9520 #### [facility] [address] [place], [address] Nucleated RBC (Bld) [#/Vol] 0 10*3/uL Normal 0-5 [facility] Comment on above: Performed By: #### L 506.1001, L500.4050, L100.0100, L506.0400, L500.4100, L501.9520 #### [facility] [address] [place], [address] Platelet mean volume (Bld) [Entitic vol] 10.7 fL Normal 6.2-12.0 [facility] Comment on above: Performed By: #### L 506.1001, L500.4050, L100.0100, L506.0400, L500.4100, L501.9520 #### [facility] [address] [place], [address] Platelets (Bld) [#/Vol] 253 10*3/uL Normal 150-450 [facility] Comment on above: Performed By: #### L 506.1001, L500.4050, L100.0100, L506.0400, L500.4100, L501.9520 #### [facility] [address] [place], [address] RBC (Bld) [#/Vol] 4.26 10*6/uL Normal 4.2-5.[address] [facility] Comment on above: Performed By: #### L 506.1001, L500.4050, L100.0100, L506.0400, L500.4100, L501.9520 #### [facility] [address] [place], [address] RDW SD 42.6 fl Normal 35.1-43.9 [facility] Comment on above: Performed By: #### L 506.1001, L500.4050, L100.0100, L506.0400, L500.4100, L501.9520 #### [facility] [address] [place], [place], [address] WBC (Bld) [#/Vol] 3.5 10*3/uL Low 4.4-11.0 [facility] Comment on above: Performed By: #### L 506.1001, L500.4050, L100.0100, L506.0400, L500.4100, L501.9520 #### [facility] [address] [place], [place], [id number] Calculated very low density lipoprotein (VLDL) cholesterol measurementOrdered By: Pratibha Thomas on 08-08-2024 Calculated very low density lipoprotein (VLDL) cholesterol measurement 11 mg/dL 5-40 [facility] Carbon dioxide, total [Moles /volume] in Central venous bloodOrdered By: Pratibha Thomas on 08-08-2024 CO2 [Moles/Vol] 24.0 mmol/L 21.0-32.0 [facility] Chloride assayOrdered By: Danita Thomas on 08-08-2024 Chloride [Moles/Vol] 104 mmol/L 98-108 [facility] Comprehensive Metabolic Prof ilon 08-08-2024 Albumin [Mass/Vol] 4.7 g/dL Normal 3.5-5.0 [facility] Comment on above: Performed By: #### L 506.1001, L500.4050, L100.0100, L506.0400, L500.4100, L501.9520 #### [facility] [address] [place], [place], [address] Albumin/Globulin [Mass ratio] 1.6 {ratio} Normal 0.9-2.4 [facility] Comment on above: Performed By: #### L 506.1001, L500.4050, L100.0100, L506.0400, L500.4100, L501.9520 #### [facility] [address] [place], [address] ALK PHOS 62 U/L Normal 35-104 [facility] Comment on above: Performed By: #### L 506.1001, L500.4050, L100.0100, L506.0400, L500.4100, L501.9520 #### [facility] [address] [place], [address] ALT [Catalytic activity/Vol] 30 U/L Normal <=34 [facility] Comment on above: Performed By: #### L 506.1001, L500.4050, L100.0100, L506.0400, L500.4100, L501.9520 #### [facility] [address] [place], [address] AST [Catalytic activity/Vol] 25 U/L Normal <=31 [facility] Comment on above: Performed By: #### L 506.1001, L500.4050, L100.0100, L506.0400, L500.4100, L501.9520 #### [facility] [address] [place], [address] Bilirubin [Mass/Vol] 0.56 mg/dL Normal 0.00-1.30 [facility] Comment on above: Performed By: #### L 506.1001, L500.4050, L100.0100, L506.0400, L500.4100, L501.9520 #### [facility] [address] [place], [address] BUN/CRE 12.1 RATIO Normal 10-20 [facility] Comment on above: Performed By: #### L 506.1001, L500.4050, L100.0100, L506.0400, L500.4100, L501.9520 #### [facility] [address] [place], [address] Calcium [Mass/Vol] 9.4 mg/dL Normal 7.6-11.0 [facility] Comment on above: Performed By: #### L 506.1001, L500.4050, L100.0100, L506.0400, L500.4100, L501.9520 #### [facility] [address] [place], [address] Chloride [Moles/Vol] 104 mmol/L Normal 98-108 [facility] Comment on above: Performed By: #### L 506.1001, L500.4050, L100.0100, L506.0400, L500.4100, L501.9520 #### [facility] [address] [place], [address] CO2 [Moles/Vol] 24.0 mmol/L Normal 21.0-32.0 [facility] Comment on above: Performed By: #### L 506.1001, L500.4050, L100.0100, L506.0400, L500.4100, L501.9520 #### [facility] [address] [place], [address] Creatinine [Mass/Vol] 0.76 mg/dL Normal 0.70-1.20 [facility] Comment on above: Performed By: #### L 506.1001, L500.4050, L100.0100, L506.0400, L500.4100, L501.9520 #### [facility] [address] [place], [address] GAP 13 Normal 5-15 [facility] Comment on above: Performed By: #### L 506.1001, L500.4050, L100.0100, L506.0400, L500.4100, L501.9520 #### [facility] [address] [place], [address] GFR/1.73 sq M.predicted among non-blacks MDRD (S/P/Bld) [Vol rate/Area] 104 mL/min/{1.73_m2} Normal >60 [facility] Comment on above: Result Comment: mL/m in/1.73m2 CKD-EPI Creatinine Equation (2020) Performed By: #### L 506.1001, L500.4050, L100.0100, L506.0400, L500.4100, L501.9520 #### [facility] [address] [place], [address] Globulin (S) [Mass/Vol] 2.9 g/dL Normal 2.2-4.2 [facility] Comment on above: Performed By: #### L 506.1001, L500.4050, L100.0100, L506.0400, L500.4100, L501.9520 #### [facility] [address] [place], [address] Glucose [Mass/Vol] 94 mg/dL Normal 70-99 [facility] Comment on above: Performed By: #### L 506.1001, L500.4050, L100.0100, L506.0400, L500.4100, L501.9520 #### [facility] [address] [place], [address] Potassium [Moles/Vol] 4.0 mmol/L Normal 3.3-5.1 [facility] Comment on above: Performed By: #### L 506.1001, L500.4050, L100.0100, L506.0400, L500.4100, L501.9520 #### [facility] [address] [place], [address] Sodium [Moles/Vol] 141 mmol/L Normal 133-145 [facility] Comment on above: Performed By: #### L 506.1001, L500.4050, L100.0100, L506.0400, L500.4100, L501.9520 #### [facility] [address] [place], [address] T PROT 7.6 g/dL Normal 5.9-8.4 [facility] Comment on above: Performed By: #### L 506.1001, L500.4050, L100.0100, L506.0400, L500.4100, L501.9520 #### [facility] [address] [place], [address] Urea nitrogen [Mass/Vol] 9 mg/dL Normal 4-19 [facility] Comment on above: Performed By: #### L 506.1001, L500.4050, L100.0100, L506.0400, L500.4100, L501.9520 #### [facility] [address] [place], [address] Eosinophil percentageOrdered By: Pratibha Thomas on 08-08-2024 Eosinophils/100 WBC (Bld) 1.7 % 0-5 [facility] Erythrocyte distribution wid th ratioOrdered By: Pratibha Thomas on 08-08-2024 Erythrocyte distribution width (RBC) [Ratio] 12.3 % 11.6-14.6 [facility] Erythrocyte distribution wid th standard deviationOrdered By: Pratibha Thomas on 08-08-2024 Erythrocyte distribution width (RBC) [Ratio] 42.6 fl 35.1-43.9 [facility] Glomerular filtration rate ( GFR) estimation/1.73 sq m using serum, plasma, or whole bOrdered By: Pratibha Thomas on 08-08-2024 GFR/1.73 sq M.predicted among non-blacks MDRD (S/P/Bld) [Vol rate/Area] 104 mL/min/{1.73_m2} >60 [facility] Comment on above: mL/min/1.73m2 CKD-EP I Creatinine Equation (2020) Hematocrit Auto (Bld) [Volum e fraction]Ordered By: Pratibha Thomas on 08-08-2024 Hematocrit (Bld) [Volume fraction] 40.3 % 37-47 [facility] Hemoglobin measurementOrdere d By: Pratibha Martha on 08-08-2024 Hemoglobin (Bld) [Mass/Vol] 14.0 g/dL 12.0-15.0 [facility] Immature granulocytes/100 WB C Auto (Bld)Ordered By: Pratibha Thomas on 08-08-2024 Immature granulocytes/100 WBC (Bld) 0.300 % 0.0-0.9 [facility] Comment on above: IG% - Immature Granu locytes (promyelocytes, myelocytes and metamyelocytes) > 1% indicates that a LEFT SHIFT is Present. LDL calc ser/plasOrdered By: Pratibha Thomas on 08-08-2024 Cholesterol in LDL [Mass/Vol] 139 mg/dL [facility] Comment on above: Pjdmlmefaj=970-781 m g/dL & Higher Pojr=500 mg/dL or greater Laboratory - Chemistry and C hemistry - challengeOrdered By: Pratibha Thomas on 08-08-2024 HCG ( test) Ql (U) Negative [facility] AST [Catalytic activity/Vol] 25 U/L <32 [facility] Lipid Profileon 08-08-2024 CHOL:HDL 3.03 Normal [facility] Comment on above: Performed By: #### L 506.1001, L500.4050, L100.0100, L506.0400, L500.4100, L501.9520 #### [facility] [address] [place], [address] Cholesterol [Mass/Vol] 224 mg/dL High <=200 [facility] Comment on above: Result Comment: Chol esterol level, Desirable <200 mg/dL Borderline high cholesterol 200-239 mg/dL High cholesterol >=240 mg/dL Recommendations of the NCEP Adult Treatment Panel for the following risk-cutoff thresholds for the [place] population. Performed By: #### L 506.1001, L500.4050, L100.0100, L506.0400, L500.4100, L501.9520 #### [facility] [address] [place], [address] Cholesterol in HDL [Mass/Vol] 74 mg/dL Normal [facility] Comment on above: Result Comment: Safia onal Cholesterol Education Program (NCEP) guidelines: <40 mg/dL: Low HDL-cholesterol (major risk factor for CHD) >= 60 mg/dL: High HDL-cholesterol (negative risk factor for CHD) HDL-cholesterol is affected by a number of factors, e.g. smoking, exercise, hormones, sex and age. Performed By: #### L 506.1001, L500.4050, L100.0100, L506.0400, L500.4100, L501.9520 #### [facility] [address] [place], [address] Cholesterol in LDL [Mass/Vol] 139 mg/dL Normal [facility] Comment on above: Result Comment: Bord yidpdq=651-432 mg/dL Higher Zqoa=743 mg/dL or greater Performed By: #### L 506.1001, L500.4050, L100.0100, L506.0400, L500.4100, L501.9520 #### [facility] [address] [place], [address] Cholesterol in VLDL [Mass/Vol] 11 mg/dL Normal 5-40 [facility] Comment on above: Performed By: #### L 506.1001, L500.4050, L100.0100, L506.0400, L500.4100, L501.9520 #### [facility] [address] [place], [address] Triglyceride [Mass/Vol] 57 mg/dL Normal [facility] Comment on above: Result Comment: The drugs N-Acetylcysteine and Metamizole may falsely depress this assay. Normal range: <150 mg/dL Borderline High: 150-199 mg/dL High: 200-499 mg/dL Very High: >500 mg/dL Performed By: #### L 506.1001, L500.4050, L100.0100, L506.0400, L500.4100, L501.9520 #### [facility] [place], [address] MCV (mean corpuscular volume ) determinationOrdered By: Pratibha Thomas on 08-08-2024 MCV (RBC) [Entitic vol] 94.6 fL 81-99 [facility] Mean corpuscular hemoglobin (MCH) determinationOrdered By: Pratibha Thomas on 08-08-2024 MCH (RBC) [Entitic mass] 32.9 pg High 27.0-32.0 [facility] Mean corpuscular hemoglobin concentration (MCHC) determinationOrdered By: Pratibha Thomas on 08-08-2024 MCHC (RBC) [Mass/Vol] 34.7 g/dL 32-36 [facility] Mean platelet volume determi nationOrdered By: Pratibha Thomas on 08-08-2024 Platelet mean volume (Bld) [Entitic vol] 10.7 fL 6.2-12.0 [facility] Monocyte percentageOrdered B y: Pratibha Thomas on 08-08-2024 Monocytes/100 WBC (Bld) 6.6 % 0-10 [facility] Neutrophil percentageOrdered By: Pratibha Thomas on 08-08-2024 Neutrophils/100 WBC (Bld) 67.4 % 47-70 [facility] Nucleated red blood cell per centageOrdered By: Pratibha Thomas on 08-08-2024 Nucleated RBC/100 WBC (Bld) [Ratio] 0 % 0-5 [facility] Ecommerce Manager Office Visit Reporton 08-08-2024 Ecommerce Manager Office Visit Report [facility] [address], [address] [place] [address] OFFICE VISIT Date of Service: 08/08/24 MR#: [id number] Acct: [id number] Name: KIERAN QIU Rep #: [id number] : 1985 Provider: KAJAL Retana Age/Sex: 38/F Location: [facility] Status: Signed Intake Vital Signs 07/20/23 13:23 06/26/25 10:49 Height 5 ft 3 in 5 ft 3 in Weight: 148 lb BMI 26.2 BP 128/84 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: 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 Required: No Is patient in pain?: No Allergies doxycycline Allergy (Mild, Verified 08/08/24 10:56) Other Mxtennj-SUR-BrT Reductase Inhibitor Allergy (Unknown, Verified 08/08/24 10:56) Unknown Medications ???Medication ???Instructions ???Recorded ???Confirmed ???Type multivitamin 1 tab PO DAILY 04/23/21 08/08/24 H istory krill oil 500 mg capsule mg PO 06/23/22 08/08/24 History Is last menstrual period known: Yes Last Menstrual Period: 06/28/24 Post menopausal: No Patient : No : No [facility] Medical History Hypercholesteremia Preventative health care Screening [...] History current occupational status: employed current occupation: [employer] Smoking Status: Former smoker alcohol [...] Date Name GA/Weeks Outcome Route Bth Weight Infant Gen Labor Lgth Anesthesia Del Locatn Provider FOB Unknown SAB Unknown EAB Unknown Chemical 01/19/19 Prasanth live - full term 8lbs Female epidural WC [facility] Encounter for routine gynecological examination Details: [...] normal i (more content not included)... Normal [facility] Platelet countOrdered By: Danita Thomas on 08-08-2024 Platelets (Bld) [#/Vol] 253 10*3/uL 150-450 [facility] Potassium measurement (mass/ volume)Ordered By: Pratibha Thomas on 08-08-2024 Potassium (Unsp spec) [Mass/Vol] 4.0 mmol/L 3.3-5.1 [facility] RBC Auto (Bld) [#/Vol]Ordere d By: Pratibha Thomas on 08-08-2024 RBC (Bld) [#/Vol] 4.26 10*6/uL 4.2-5.[address] [facility] Screening total cholesterol/ high density lipoprotein (HDL) cholesterol ratioOrdered By: Pratibha Thomas on 08-08-2024 Cholesterol.total/Cholest latha in HDL [Mass ratio] 3.03 {ratio} [facility] Serum creatinine measurement (mass/volume)Ordered By: Pratibha Thomas on 08-08-2024 Creatinine [Mass/Vol] 0.76 mg/dL 0.70-1.20 [facility] Serum globulin measurementOr dered By: Pratibha Thomas on 08-08-2024 Globulin (S) [Mass/Vol] 2.9 g/dL 2.2-4.2 [facility] Serum glucose measurement (m ass/volume)Ordered By: Pratibha Thomas on 08-08-2024 Glucose [Mass/Vol] 94 mg/dL 70-99 [facility] Serum or plasma alanine cote otransferase (ALT) measurementOrdered By: Pratibha Thomas on 08-08-2024 ALT [Catalytic activity/Vol] 30 U/L <35 [facility] Serum or plasma albumin junaid urement (mass/volume)Ordered By: Pratibha Thomas on 08-08-2024 Albumin [Mass/Vol] 4.7 g/dL 3.5-5.0 [facility] Serum or plasma albumin/glob ulin mass ratioOrdered By: Pratibha Thomas on 08-08-2024 Albumin/Globulin [Mass ratio] 1.6 {ratio} 0.9-2.4 [facility] Serum or plasma alkaline oly sphatase measurementOrdered By: Pratibha Thomas on 08-08-2024 ALP [Catalytic activity/Vol] 62 U/L 35-104 [facility] Serum or plasma calcium junaid urement (mass/volume)Ordered By: Pratibha Thomas on 08-08-2024 Calcium [Mass/Vol] 9.4 mg/dL 7.6-11.0 [facility] Serum or plasma cholesterol in HDL measurement (mass/volume)Ordered By: Pratibha Thomas on 08-08-2024 Cholesterol in HDL [Mass/Vol] 74 mg/dL >40 [facility] Comment on above: National Cholesterol Education Program (NCEP) guidelines:<40 mg/dL: Low HDL-cholesterol (major risk factor for CHD)>= 60 mg/dL: High HDL-cholesterol (negative risk factor for CHD)HDL-cholesterol is affected by a number of factors, e.g. smoking, exercise, hormones, sex and age. Serum or plasma cholesterol measurement (mass/volume)Ordered By: Pratibha Thomas on 08-08-2024 Cholesterol [Mass/Vol] 224 mg/dL High <201 [facility] Comment on above: Cholesterol level, D esirable <200 mg/dLBorderline high cholesterol 200-239 mg/dLHigh cholesterol >=240 mg/dLRecommendations of the NCEP Adult Treatment Panel for the following risk-cutoff thresholds for the [place] population. Serum or plasma thyroperoxid ase antibody assay (units/volume)Ordered By: Pratibha Thomas on 08-08-2024 TPO Ab Qn [IU]/mL 0-34 [facility] Comment on above: Performed at: [place] [id number] Director: John Phillips PhD, Phone: [phone] Serum or plasma urea nitroge n measurement (mass/volume)Ordered By: Pratibha Thomas on 08-08-2024 Urea nitrogen [Mass/Vol] 9 mg/dL 4-19 [facility] Sodium levelOrdered By: Maria Del Rosario Thomas on 08-08-2024 Sodium [Moles/Vol] 141 mmol/L 133-145 [facility] T4 Free Directon 08-08-2024 T4 FREE DIRECT 1.40 ng/dL Normal 0.76-1.46 [facility] Comment on above: Performed By: #### L 506.1001, L500.4050, L100.0100, L506.0400, L500.4100, L501.9520 #### [facility] [address] [place], [place], [id number] T4 freeOrdered By: Pratibha mcguiregriffin on 08-08-2024 Free T4 [Mass/Vol] 1.40 ng/dL 0.76-1.46 [facility] TSH DL <= 0.005 mIU/L QnOrde red By: Pratibha Thomas on 08-08-2024 TSH Qn 1.690 uIU/mL 0.300-4.200 [facility] Thyroid Stim Hormone (TSH)on 08-08-2024 TSH 1.690 uIU/mL Normal 0.300-4.200 [facility] Comment on above: Performed By: #### L 506.1001, L500.4050, L100.0100, L506.0400, L500.4100, L501.9520 #### [facility] [address] [place], [place], [id number] Total proteinOrdered By: You giang Twylagriffin on 08-08-2024 Protein [Mass/Vol] 7.6 g/dL 5.9-8.4 [facility] Triglycerides measurementOrd ered By: Pratibha Thomas on 08-08-2024 Triglyceride [Mass/Vol] 57 mg/dL <199 [facility] Comment on above: The drugs N-Acetylcy steine and Metamizole may falsely depress this assay. Normal range: <150 mg/dLBorderline High: 150-199 mg/dLHigh: 200-499 mg/dLVery High: >500 mg/dL Vitamin D,25 Hydroxyon 08-08 Vitamin D 25-OH 27.6 ng/mL Low 30-100 [facility] Comment on above: Result Comment: Vane min D Status Deficiency: <20 ng/mL (50nmol/L) Insufficiency: 20-30 ng/mL (50-75 nmol/L) Sufficiency: 30-100 ng/mL (75-250 nmol/L) Toxicity: >100 ng/mL (>250 nmol/L) Performed By: #### L 506.1001, L500.4050, L100.0100, L506.0400, L500.4100, L501.9520 #### [facility] [address] [place], [address] White blood cell (WBC) count Ordered By: Pratibha Thomas on 08-08-2024 WBC (Bld) [#/Vol] 3.5 10*3/uL Low 4.4-11.0 [facility] Absolute lymphocyte countOrd ered By: Cande Yousif on 08-18-2022 Lymphocytes Auto (Unsp spec) [#/Vol] 0.96 10*3/uL 0.83-4.51 [facility] Basophil percentageOrdered B y: Carrollnasir Yousif on 08-18-2022 Basophils/100 WBC (Bld) 0.4 % 0-1 [facility] Bilirubin [Mass/Vol] 0.80 mg/dL 0.20-1.00 [facility] Comment on above: For patients on eltr ombopag therapy, use of Dimension [place] TBIL is not recommended. Chloride [Moles/Vol] 105 mmol/L 98-107 [facility] Cholesterol [Mass/Vol] 205 mg/dL <200 [facility] Comment on above: <200 mg/dL Desirable 200-240 mg/dL Borderline >240 mg/dL High Risk Eosinophils/100 WBC (Bld) 1.3 % 0-5 [facility] Glucose [Mass/Vol] 87 mg/dL 74-106 [facility] Neutrophils (Bld) [#/Vol] 3.9 10*3/uL 2.0-7.7 [facility] Neutrophils/100 WBC (Bld) 74.5 % 47-70 [facility] Potassium [Moles/Vol] 3.8 mmol/L 3.5-5.1 [facility] Protein [Mass/Vol] 7.6 g/dL 6.4-8.2 [facility] Sodium [Moles/Vol] 139 mmol/L 136-145 [facility] Triglyceride [Mass/Vol] 75 mg/dL <199 [facility] Comment on above: The drugs N-Acetylcy steine and Metamizole may falsely depress this assay.Serum Triglycerides Reference Interval Normal <150 mg/dL Borderline high 150 - 199 mg/dL High 200 - 499 mg/dL Very High > or = 500 mg/dL WBC (Bld) [#/Vol] 5.2 10*3/uL 4.4-11.0 [facility] Blood erythrocytes count (nu mber/volume)Ordered By: Cande Yousif on 08-18-2022 RBC (Bld) [#/Vol] 3.97 10*6/uL 4.2-5.[address] [facility] Blood hemoglobin measurement (mass/volume)Ordered By: Cande Yousif on 08-18-2022 Hemoglobin (Bld) [Mass/Vol] 12.9 g/dL 12.0-15.0 [facility] Blood lymphocytes/100 leukoc ytesOrdered By: rosepenningtonnasir Yousif on 08-18-2022 Lymphocytes/100 WBC (Bld) 18.4 % 19-41 [facility] Blood monocytes/100 leukocyt esOrdered By: rosepenningtonnasir Yousif on 08-18-2022 Monocytes/100 WBC (Bld) 5.2 % 0-10 [facility] Blood platelet mean volumeOr dered By: rosepenningtonnasir Yousif on 08-18-2022 Platelet mean volume (Bld) [Entitic vol] 10.1 fL 6.2-12.0 [facility] Determination of erythrocyte mean corpuscular volume (MCV)Ordered By: Cande Yousif on 08-18-2022 MCV (RBC) [Entitic vol] 93.5 fL 81-99 [facility] Hematocrit Auto (Bld) [Volum e fraction]Ordered By: Cande Yousif on 08-18-2022 Hematocrit (Bld) [Volume fraction] 37.1 % 37-47 [facility] Laboratory - Chemistry and C hemistry - challengeOrdered By: rosepenningtonnasir Yousif on 08-18-2022 ALP [Catalytic activity/Vol] 67 U/L 45-117 [facility] ALT [Catalytic activity/Vol] 30 U/L 13-56 [facility] CO2 [Moles/Vol] 28.0 mmol/L 21.0-32.0 [facility] Free T4 [Mass/Vol] 1.09 ng/dL 0.76-1.46 [facility] Globulin (S) [Mass/Vol] 3.6 g/dL 2.2-4.2 [facility] Urea nitrogen/Creatinine [Mass ratio] 7.2 mg/mg 10-20 [facility] Laboratory - Hematology and Cell countsOrdered By: Cande Yousif on 08-18-2022 Erythrocyte distribution width (RBC) [Entitic vol] 44.0 fL 35.1-43.9 [facility] Erythrocyte distribution width (RBC) [Ratio] 13.0 % 11.6-14.6 [facility] Immature granulocytes/100 WBC (Bld) 0.200 % 0.0-0.9 [facility] Comment on above: IG% - Immature Granu locytes (promyelocytes, myelocytes and metamyelocytes) > 1% indicates that a LEFT SHIFT is Present. MCH (RBC) [Entitic mass] 32.5 pg 27.0-32.0 [facility] Nucleated RBC/100 WBC (Bld) [Ratio] 0 % 0-5 [facility] MCHC Auto (RBC) [Mass/Vol]Or dered By: Cande Yousif on 08-18-2022 MCHC (RBC) [Mass/Vol] 34.8 g/dL 32-36 [facility] No Panel InformationOrdered By: Cande Yousif on 08-18-2022 Estimated GFR (MDRD) Amer 100 mL/min >60 [facility] Comment on above: GFR Calc Estimated GFR (MDRD) Non-Af Amer 83 mL/min >60 [facility] Comment on above: Non- GFR Calc Thyroid Stimulating Hormone (TSH) 1.93 uIU/mL 0.358-3.74 [facility] Platelets bldOrdered By: Andrey Yousif on 08-18-2022 Platelets (Bld) [#/Vol] 256 10*3/uL 150-450 [facility] Serum or plasma albumin junaid urement (mass/volume)Ordered By: Cande Yousif on 08-18-2022 Albumin [Mass/Vol] 4.0 g/dL 3.2-5.0 [facility] Serum or plasma albumin/glob ulin mass ratioOrdered By: Cande Yousif on 08-18-2022 Albumin/Globulin [Mass ratio] 1.1 {ratio} 0.9-2.4 [facility] Serum or plasma calcium junaid urement (mass/volume)Ordered By: Cande Yousif on 08-18-2022 Calcium [Mass/Vol] 9.2 mg/dL 8.5-10.1 [facility] Serum or plasma cholesterol in HDL measurement (mass/volume)Ordered By: Cande Yousif on 08-18-2022 Cholesterol in HDL [Mass/Vol] 76 mg/dL >40 [facility] Comment on above: The drugs N-Acetylcy steine and Metamizole may falsely depress this assay. Reference Range HDL <40 mg/dL Low HDL Cholesterol HDL >or= 60 mg/dL High HDL Cholesterol Serum or plasma cholesterol in VLDL measurement (mass/volume)Ordered By: Cande Yousif on 08-18-2022 Cholesterol in VLDL [Mass/Vol] 15 mg/dL 5-40 [facility] Serum or plasma creatinine m easurement (mass/volume)Ordered By: Cande Yousif on 08-18-2022 Creatinine [Mass/Vol] 0.83 mg/dL 0.55-1.02 [facility] Comment on above: The validity of the calculated GFR & GFRAA in patients over 70 years has not been determined. Clinical correlation is essential. Serum or plasma low density lipoprotein (LDL) cholesterol measurement (mass/volume)Ordered By: Cande Yousif on 08-18-2022 Cholesterol in LDL [Mass/Vol] 114 mg/dL 0-130 [facility] Serum or plasma urea nitroge n measurement (mass/volume)Ordered By: Cande Yousif on 08-18-2022 Urea nitrogen [Mass/Vol] 6 mg/dL 7-18 [facility] Thin prep Papanicolaou smear with manual screeningOrdered By: Cande Yousif on 08-18-2022 Thin prep Papanicolaou smear with manual screening 25 U/L 15-37 [facility] Thin prep Papanicolaou smear with manual screening 6 5-15 [facility] Absolute lymphocyte counton 07-08-2021 Lymphocytes Auto (Unsp spec) [#/Vol] 0.91 10*3/uL 0.83-4.51 [facility] Work Phone: [phone] Basophil percentageon 2021 Basophils/100 WBC (Bld) 0.4 % 0-1 [facility] Work Phone: [phone] Bilirubin [Mass/Vol] 0.60 mg/dL 0.20-1.00 [facility] Work Phone: Comment on above: For patients on eltr ombopag therapy, use of Dimension [place] TBIL is not recommended. Chloride [Moles/Vol] 102 mmol/L 98-107 [facility] Work Phone: Cholesterol [Mass/Vol] 234 mg/dL <200 [facility] Work Phone: [phone] Comment on above: <200 mg/dL Desirable 200-240 mg/dL Borderline >240 mg/dL High Risk Eosinophils/100 WBC (Bld) 1.5 % 0-5 [facility] Work Phone: Glucose [Mass/Vol] 84 mg/dL 74-106 [facility] Work Phone: Neutrophils (Bld) [#/Vol] 4.0 10*3/uL 2.0-7.7 [facility] Work Phone: Neutrophils/100 WBC (Bld) 75.5 % 47-70 [facility] Work Phone: Potassium [Moles/Vol] 3.9 mmol/L 3.5-5.1 [facility] Work Phone: Protein [Mass/Vol] 7.9 g/dL 6.4-8.2 [facility] Work Phone: [phone] Sodium [Moles/Vol] 138 mmol/L 136-145 [facility] Work Phone: [phone] Triglyceride [Mass/Vol] 79 mg/dL [facility] Work Phone: [phone] Comment on above: The drugs N-Acetylcy steine and Metamizole may falsely depress this assay.Serum Triglycerides Reference Interval Normal <150 mg/dL Borderline high 150 - 199 mg/dL High 200 - 499 mg/dL Very High > or = 500 mg/dL WBC (Bld) [#/Vol] 5.4 10*3/uL 4.4-11.0 [facility] Work Phone: Blood erythrocytes count (nu mber/volume)on 07-08-2021 RBC (Bld) [#/Vol] 4.14 10*6/uL 4.2-5.4 [facility] Work Phone: Blood hemoglobin measurement (mass/volume)on 07-08-2021 Hemoglobin (Bld) [Mass/Vol] 13.3 g/dL 12.0-15.0 [facility] Work Phone: Blood lymphocytes/100 leukoc yteson 07-08-2021 Lymphocytes/100 WBC (Bld) 17.0 % 19-41 [facility] Work Phone: Blood monocytes/100 leukocyt eson 07-08-2021 Monocytes/100 WBC (Bld) 5.0 % 0-10 [facility] Work Phone: Blood platelet mean volumeon 07-08-2021 Platelet mean volume (Bld) [Entitic vol] 10.4 fL 6.2-12.0 [facility] Work Phone: Determination of erythrocyte mean corpuscular volume (MCV)on 07-08-2021 MCV (RBC) [Entitic vol] 94.2 fL 81-99 [facility] Work Phone: Hematocrit Auto (Bld) [Volum e fraction]on 07-08-2021 Hematocrit (Bld) [Volume fraction] 39.0 % 37-47 [facility] Work Phone: Laboratory - Chemistry and C hemistry - challengeon 07-08-2021 ALP [Catalytic activity/Vol] 75 U/L 45-117 [facility] Work Phone: ALT [Catalytic activity/Vol] 35 U/L 13-56 [facility] Work Phone: CO2 [Moles/Vol] 31.0 mmol/L 21.0-32.0 [facility] Work Phone: Globulin (S) [Mass/Vol] 3.7 g/dL 2.2-4.2 [facility] Work Phone: Urea nitrogen/Creatinine [Mass ratio] 11.5 mg/mg 10-20 [facility] Work Phone: Laboratory - Hematology and Cell countson 07-08-2021 Erythrocyte distribution width (RBC) [Entitic vol] 43.0 fL 35.1-43.9 [facility] Work Phone: Erythrocyte distribution width (RBC) [Ratio] 12.5 % 11.6-14.6 [facility] Work Phone: Immature granulocytes/100 WBC (Bld) 0.600 % 0.0-0.9 [facility] Work Phone: Comment on above: IG% - Immature Granu locytes (promyelocytes, myelocytes and metamyelocytes) > 1% indicates that a LEFT SHIFT is Present. MCH (RBC) [Entitic mass] 32.1 pg 27.0-32.0 [facility] Work Phone: Nucleated RBC/100 WBC (Bld) [Ratio] 0 % 0-5 [facility] Work Phone: MCHC Auto (RBC) [Mass/Vol]on 07-08-2021 MCHC (RBC) [Mass/Vol] 34.1 g/dL 32-36 [facility] Work Phone: No Panel Informationon 07-08 Estimated GFR (MDRD) Amer 108 mL/min >60 [facility] Work Phone: Comment on above: GFR Calc Estimated GFR (MDRD) Non-Af Amer 89 mL/min >60 [facility] Work Phone: Comment on above: Non- GFR Calc Platelets bldon 05-26-2022 Platelets (Bld) [#/Vol] 283 10*3/uL 150-450 [facility] Work Phone: Serum or plasma albumin junaid urement (mass/volume)on 07-08-2021 Albumin [Mass/Vol] 4.2 g/dL 3.2-5.0 [facility] Work Phone: Serum or plasma albumin/glob ulin mass ratioon 07-08-2021 Albumin/Globulin [Mass ratio] 1.1 {ratio} 0.9-2.4 [facility] Work Phone: Serum or plasma calcium junaid urement (mass/volume)on 07-08-2021 Calcium [Mass/Vol] 9.0 mg/dL 8.5-10.1 [facility] Work Phone: Serum or plasma cholesterol in HDL measurement (mass/volume)on 07-08-2021 Cholesterol in HDL [Mass/Vol] 70 mg/dL [facility] Work Phone: Comment on above: The drugs N-Acetylcy steine and Metamizole may falsely depress this assay. Reference Range HDL <40 mg/dL Low HDL Cholesterol HDL >or= 60 mg/dL High HDL Cholesterol Serum or plasma cholesterol in VLDL measurement (mass/volume)on 07-08-2021 Cholesterol in VLDL [Mass/Vol] 16 mg/dL 5-40 [facility] Work Phone: Serum or plasma creatinine m easurement (mass/volume)on 07-08-2021 Creatinine [Mass/Vol] 0.78 mg/dL 0.55-1.02 [facility] Work Phone: Comment on above: The validity of the calculated GFR & GFRAA in patients over 70 years has not been determined. Clinical correlation is essential. Serum or plasma low density lipoprotein (LDL) cholesterol measurement (mass/volume)on 07-08-2021 Cholesterol in LDL [Mass/Vol] 148 mg/dL 0-130 [facility] Work Phone: Serum or plasma urea nitroge n measurement (mass/volume)on 07-08-2021 Urea nitrogen [Mass/Vol] 9 mg/dL 7-18 [facility] Work Phone: Thin prep Papanicolaou smear with manual screeningon 07-08-2021 Thin prep Papanicolaou smear with manual screening 20 U/L 15-37 [facility] Work Phone: Thin prep Papanicolaou smear with manual screening 5 5-15 [facility] Work Phone: MRI BRAIN WO/W IVCONon 05-16 MRI BRAIN WO/W IVCON * * *Final Report* * * DATE OF EXAM: May 16 2021 4:29PM [facility] 0295 - MRI BRAIN WO/W IVCON [...] neural foraminal narrowing in the cervical spine. 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[employer] Transcribe Date/Time: May 16 2021 4:39P Dictated by : CATHERINE HOLCOMB MD This examination was interpreted and the report reviewed and electronically signed by: CATHERINE HOLCOMB MD on May 16 2021 4:52PM EST [id number] [facility] No Panel Informationon 03-11 -2022 Vitamin D 25-Hydroxy 23.4 ng/mL [facility] Work Phone: Comment on above: Vitamin D 25(OH) Sta tus Range Deficiency <20 ng/mL (50nmol/L) Insufficiency 20 - 30 ng/mL (50 - 75 nmol/L) Sufficiency 30 - 100 ng/mL (75 - 250 nmol/L) Toxicity >100 ng/mL (>250 nmol/L) CNNURSEon 06-30-2020 CNNURSE Nurse Visit (COVAMD) ---- KIERAN QIU ([id number]) 1985 F Date Time Provider Department 06/30/20 3:20 PM COVID VACCINE [facility] During your visit today, we recorded the following information about you: Referring Provider: RANI ARMANDO JR [[id number]] Allergies As of Date: 06/30/2020 Noted Allergy Reaction DOXYCYCLINE 09/30/2014 14 - Other: See Comments Comments: hot and tingly hands Date Reviewed: 06/24/2016 Reviewed by: Jake Melton - Fully Assessed Order(s):[email or web address] SARS-COV-2 VACCINE 2D DOSE APPT [[id number]] Order #: [id number] [employer] COVID-19 VACCINE [[id number]] Order #: [id number] Prescriptions as of 06/30/2020 Sig: FLUCONAZOLE 200 MG TABLET Take 1 tablet by mouth once d* Problem List As Of Date 06/30/2020 Noted Resolved Hot flashes [R23.2] 03/28/2011 Palpitation [R00.2] 03/28/2011 Supervision of other normal [Z34.80] 03/28/2011 05/29/2012 Abnormal US [O28.3] 06/01/2011 05/29/2012 History of recurrent miscarriages, 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 Encounter Status:Closed by CLOSURE [employer], ADMINISTRATIVE on 07/01/20 [facility] CNNURSEon 06-09-2020 CNNURSE Nurse Visit (COVAMD) ---- KIERAN QIU ([id number]) 1985 F Date Time Provider Department 06/09/20 3:20 PM COVID VACCINE [facility] COVAMD During your visit today, we recorded the following information about you: Referring Provider: RANI ARMANDO JR [[id number]] Allergies As of Date: 06/09/2020 Noted Allergy Reaction DOXYCYCLINE 09/30/2014 14 - Other: See Comments Comments: hot and tingly hands Date Reviewed: 06/24/2016 Reviewed by: Jake Melton - Fully Assessed Order(s):[employer] COVID-19 VACCINE [[id number]] Order #: [id number] [email or web address] SARS-COV-2 VACCINE 2D DOSE APPT [[id number]] Order #: [id number] FUTURE Prescriptions as of 06/09/2020 Sig: FLUCONAZOLE 200 MG TABLET Take 1 tablet by mouth once d* Problem List As Of Date 06/09/2020 Noted Resolved Hot flashes [R23.2] 03/28/2011 Palpitation [R00.2] 03/28/2011 Supervision of other normal [Z34.80] 03/28/2011 05/29/2012 Abnormal US [O28.3] 06/01/2011 05/29/2012 History of recurrent miscarriages, 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 Delores García requests that Kieran be evaluated due to short cervix. HPIJillian is a 33 y.o. at 19w6d gestation [...] was spent counseling and coordinating care. Normal [facility] Vital Signs Date Time Vital Sign Value Performing Clinician Maria Teresa tello 08-08-2024 10:49-0400 Body height 160.[address] Cande Yousif MD Work Phone: [facility] 08-08-2024 10:49-0400 Body mass index (BMI) [Ratio] 26.2 kg/m2 Dr. Cande Yousif MD Work Phone: [facility] 08-08-2024 10:49-0400 Body weight 67.[address] Cande Yousif MD Work Phone: [facility] 08-08-2024 10:49-0400 Diastolic blood pressure 84 mm[Hg] Dr. Cande Yousif MD Work Phone: [facility] 08-08-2024 10:49-0400 Systolic blood pressure 128 mm[Hg] Dr. Cande Yousif MD Work Phone: [facility] 08-18-2022 14:34-0400 Body height 160.[address] Cande Yousif Work Phone: [facility] 08-18-2022 14:34-0400 Body mass index (BMI) [Ratio] 27.3 kg/m2 Dr. Cande Yousif Work Phone: [facility] 08-18-2022 14:34-0400 Body temperature 98.7 [degF] Dr. Cande Yousif Work Phone: [facility] 08-18-2022 14:34-0400 Body weight 69.[address] Cande Yousif Work Phone: [facility] 08-18-2022 14:34-0400 Diastolic blood pressure 74 mm[Hg] Dr. Cande Yousif Work Phone: [facility] 08-18-2022 14:34-0400 Heart rate 56 /min Dr. Cande Yousif Work Phone: [facility] 08-18-2022 14:34-0400 Respiratory rate 14 /min Dr. Cande Yousif Work Phone: [facility] 08-18-2022 14:34-0400 SaO2% (BldA) [Mass fraction] 99 % Dr. Cande Yousif Work Phone: [facility] 08-18-2022 14:34-0400 Systolic blood pressure 120 mm[Hg] Dr. Cande Yousif Work Phone: [facility] 06-23-2022 10:01-0400 Body mass index (BMI) [Ratio] 27.3 kg/m2 Dr. Cande Yousif Work Phone: [facility] 06-23-2022 10:01-0400 Body weight 69.[address] Cande Yousif Work Phone: [facility] 06-23-2022 10:01-0400 Diastolic blood pressure 64 mm[Hg] Dr. Cande Yousif Work Phone: [facility] 06-23-2022 10:01-0400 Systolic blood pressure 112 mm[Hg] Dr. Cande Yousif Work Phone: [facility] 07-08-2021 13:52-0400 Body height 160.[address] Cande Yousif Work Phone: [facility] Work Phone: 07-08-2021 13:52-0400 Body mass index (BMI) [Ratio] 28.2 kg/m2 Dr. Cande Yousif Work Phone: [facility] Work Phone: 07-08-2021 13:52-0400 Body temperature 98.1 [degF] Dr. Cande Yousif Work Phone: [facility] Work Phone: 07-08-2021 13:52-0400 Body weight 72.[address] Cande Yousif Work Phone: [facility] Work Phone: 07-08-2021 13:52-0400 Diastolic blood pressure 70 mm[Hg] Dr. Cande Yousif Work Phone: [facility] Work Phone: 07-08-2021 13:52-0400 Heart rate 87 /min Dr. Cande Yousif Work Phone: [facility] Work Phone: 07-08-2021 13:52-0400 Respiratory rate 16 /min Dr. Cande Yousif Work Phone: [facility] Work Phone: 07-08-2021 13:52-0400 SaO2% (BldA) [Mass fraction] 98 % Dr. Cande Yousif Work Phone: [facility] Work Phone: 07-08-2021 13:52-0400 Systolic blood pressure 110 mm[Hg] Dr. Cande Yousif Work Phone: [facility] Work Phone: 04-23-2021 07:04-0500 Body height 160.[address] Cande Yousif Work Phone: [facility] Work Phone: 04-23-2021 07:04-0500 Body mass index (BMI) [Ratio] 28.5 kg/m2 Dr. Cande Yousif Work Phone: [facility] Work Phone: 04-23-2021 07:04-0500 Body temperature 98.7 [degF] Dr. Cande Yousif Work Phone: [facility] Work Phone: 04-23-2021 07:04-0500 Body weight 73.[address] Cande Yousif Work Phone: [facility] Work Phone: 04-23-2021 07:04-0500 Diastolic blood pressure 88 mm[Hg] Dr. Cande Yousif Work Phone: [facility] Work Phone: 04-23-2021 07:04-0500 Heart rate 91 /min Dr. Cande Yousif Work Phone: [facility] Work Phone: 04-23-2021 07:04-0500 Respiratory rate 16 /min Dr. Cande Yousif Work Phone: [facility] Work Phone: 04-23-2021 07:04-0500 SaO2% (BldA) [Mass fraction] 99 % Dr. Cande Yousif Work Phone: [facility] Work Phone: 04-23-2021 07:04-0500 Systolic blood pressure 140 mm[Hg] Dr. Cande Yousif Work Phone: [facility] Work Phone: Encounters Encounter Date Encounter Type Care Provider Facility Start: 02-11-2025 ambulatory Cande Cunningham ty:[facility] Start: 12-23-2024 ambulatory Cande Cunningham ty:[facility] Start: 12-19-2024 ambulatory Delores García Faci lity:[facility] Start: 12-19-2024 End: 12-19-2024 ambulatory Delores García Facility:[facility] Start: 10-11-2024 Encounter for genera l adult medical examination without abnormal findings Pratibha Thomas [facility] Start: 08-22-2024 End: 08-22-[address] Cande Yousif MD Work Phone: [facility] Start: 08-22-2024 End: 08-22-2024 Patient encounter procedure Pratibha RDZ -[facility] Work Phone: Start: 08-22-2024 End: 08-22-2024 ambulatory Pratibha Thomas Facility:[facility] Start: 08-08-2024 End: 08-08-2024 Patient encounter procedure Pratibha RDZ -[facility] Work Phone: Start: 08-08-2024 End: 08-08-2024 Patient encounter status Pratibha RDZ [facility] Start: 08-08-2024 End: 08-08-[address] Cande Yousif MD Work Phone: [facility] Work Phone: Start: 08-08-2024 End: 08-08-2024 ambulatory Pratibha Thomas Facility:[facility] Start: 08-18-2022 End: 08-18-[address] Cande Yousif Work Phone: [facility] Work Phone: Start: 08-18-[address] Cande Yousif Work Phone: [facility] Start: 08-18-2022 End: 08-18-2022 Encounter for general adult medical examination without abnormal findings Dr. Cande Yousif Work Phone: [facility] Start: 08-18-2022 End: 08-18-[address] Cande Yousif Work Phone: [facility] Work Phone: Start: 06-23-2022 End: 06-23-[address] Cande Yousif Work Phone: [facility] Work Phone: Start: 04-21-2022 End: 04-21-2022 ambulatory [facility] Work Phone: Start: 04-21-2022 End: 04-21-2022 Patient encounter procedure [facility]-Ultrasound, [facility] Start: 07-08-2021 End: 07-08-[address] Cande Yousif Work Phone: [facility] Start: 05-16-2021 End: 05-16-2021 Subsequent hospital visit by physician [facility] (1.5t) Radiology Comment on above: Tremor, unspecified [R25.1] Start: 04-29-2021 End: 04-29-[address] Cande Yousif Work Phone: [facility]-Ultrasound, [facility] Start: 04-23-2021 End: 04-23-[address] Cande Yousif Work Phone: [facility]-Laboratory, [facility] Procedures Date Procedure Procedure Detail Performing [...] profile DTAP,TDAP,TD (3 - Td or Tdap) [facility] Start: 08-08-2024 CBC W Auto Differential panel - Blood [facility] Start: 08-08-2024 Comprehensive metabolic 2000 panel - Serum or Plasma [facility] Start: 08-08-2024 Lipid 1996 panel - Serum or Plasma [facility] Start: 08-08-2024 T4 free measurement [facility] Start: 08-08-2024 Thyroid stimulating hormone measurement [facility] Start: 08-08-2024 Vitamin D, 1,25-dihydroxy measurement [facility] Start: 10-14-2021 Influenza vaccination INFLUENZA (Season Ended) [facility] Start: 04-23-2021 Patient referral [facility] Work Phone: Start: 11-30-2020 COVID-19 VACCINE (3 - Booster for Pfizer series) COVID-19 VACCINE (3 - Booster for Pfizer series) [facility] Start: 05-29-2018 PAP TESTING PAP TESTING [facility] Start: 2016 HPV TESTING HPV TESTING [facility] Start: 2004 HEPATITIS C SCREENING HEPATITIS C SCREENING [facility] Start: 1998 Adult depression screening assessment DEPRESSION SCREENING [facility] Alanine aminotransfe rase [Enzymatic activity/volume] in Serum or Plasma [facility] Albumin [Mass/volume ] in Serum or Plasma [facility] Alkaline phosphatase [Enzymatic activity/volume] in Serum or Plasma [facility] Anion gap in Serum or Plasma [facility] Bilirubin, total measurement [facility] BUN/Creatinine ratio [facility] Calcium [Mass/volume ] in Serum or Plasma [facility] Carbon dioxide, tota l [Moles/volume] in Central venous blood [facility] Cholesterol [Mass/vo lume] in Serum or Plasma [facility] Cholesterol in HDL [Mass/volume] in Serum or Plasma [facility] Creatinine [Mass/vol ume] in Serum or Plasma [facility] Erythrocyte mean cor puscular volume determination [facility] Glucose [Mass/volume ] in Serum or Plasma [facility] Hematocrit [Volume F raction] of Blood [facility] Hemoglobin [Mass/vol ume] in Blood [facility] Leukocytes [#/volume ] in Blood [facility] Low density lipoprot ein cholesterol measurement [facility] Mean corpuscular hem oglobin concentration determination [facility] Mean corpuscular hem oglobin determination [facility] Measurement of renal function [facility] Neutrophil count [facility] Neutrophil percent differential count [facility] Patient referral [facility] Work Phone: Platelets [#/volume] in Blood [facility] Potassium measurement [facility] Red blood cell count [facility] Red cell distributio n width determination [facility] Serum chloride measurement [facility] Sodium measurement [facility] Total cholesterol:HD L ratio measurement [facility] Total protein measurement [facility] Triglycerides measurement [facility] Urea nitrogen [Mass/ volume] in Serum or Plasma [facility] US Pelvis [facility] VLDL cholesterol measurement [facility] Immunizations Immunization Date Immunization Notes Care Provider Fa [facility] 06-30-2020 Covid (Pfizer) Dr. Cande Yousif Work Phone: [facility] Work Phone: 06-09-2020 Covid (Pfizer) Dr. Cande Yousif Work Phone: [facility] 10-19-2018 tetanus toxoid, redu feliz diphtheria toxoid, and acellular pertussis vaccine, adsorbed Dr. Cande Yousif Work Phone: [facility] 10-19-2018 diphtheria, tetanus toxoids and acellular pertussis vaccine, unspecified formulation Dr. Cande Yousif Work Phone: [facility] Work Phone: 06-24-2016 tetanus toxoid, redu feliz diphtheria toxoid, and acellular pertussis vaccine, adsorbed Mri (1.5t) [facility] 03-28-2011 influenza virus vaccine, unspecified formulation Mri (1.5t) [facility] 11-14-2007 tetanus toxoid, redu feliz diphtheria toxoid, and acellular pertussis vaccine, adsorbed Mri (1.5t) [facility] Payers Date Payer Category Payer Unknown [id number] 2024 Self-pay [id number] 2024 Unknown [id number] 2018 Unknown MMO MMO [employer] [id number] 2018-Present [phone] [address] [place] [address] O [id number] Unknown [id number] Unknown [id number] Unknown [id number] Unknown [id number] Unknown [id number] Unknown [id number] Unknown [id number] Unknown [id number] Social History Date Type Detail Facility Start: 04-23-2021 End: 08-18-2022 Tobacco smoking status NHIS Unknown if ever smoked [facility] Start: 01-19-2019 None [facility] Start: 1985 Sex Assigned At Female [facility] Start: 02-02-2011 Tobacco smoking stat us NHIS Smokes tobacco daily [facility] Work Phone: History of tobacco use Cigarette Smoker [facility] Work Phone: Start: 02-02-2011 Cigarettes smoked current (pack per day) - Reported 0.4 [facility] Start: 02-02-2011 Tobacco use and exposure Smokeless tobacco non-user [facility] Work Phone: Start: 06-24-2016 Alcohol intake Current drinke r of alcohol (finding) [facility] Start: 08-10-2011 History SDOH Alcohol Comment occassionally [facility] Start: 1985 Sex Assigned At Not on file [facility] Start: 05-06-2021 End: 05-16-2021 Exposure to SARS-CoV-2 (event) Not sure [facility] Start: 08-18-2022 Tobacco smoking stat us NJIS Ex-smoker (finding) [facility] Clinical Notes 06-01-2011 to 08-23-2024 Note Date & Type Note Facility 08-23-2024 Radiology Diagnostic study note [facility] Imaging Services [address] [place] [address] Pelvic w/ Transvaginal MR#: [id number] Acct: [id number] Name: KIERAN QIU Rep #: [id number] : 1985 F 38 From: Jus Ellis MD PCP: Dr. Cande Yousif MD Status: R EG CLI Study:Pelvic w/ Transvaginal Date of Exam: 08/22/24 Exam# [id number] Ordering Dr: Pratibha Thomas [facility] PROCEDURE: PELVIC W/ TRANSVAGINAL 08/22/2024 REASON FOR [...] suggest PCO. Please correlate clinically. Reading Location: [place] [address] CC: KAJAL Thomas; Dr. 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 [facility] 08-08-2024 Evaluation note Diagnosis Onset Date Resolution Abnormal uterine bleeding acute August 08, 2024 10:37am Hypercholesteremia acute July 152024 10:37am Thyromegaly acute August 08 10:37am Encounter for routine gynecological examination noneactive July 152024 10:37am [facility] Work Phone: [phone] 292-371404-03-2022 NoteHNO ID: [id number] Author: Hiral Corona cartridge filler Service: Radiology Author Type: Sheet Rock Applicator Type: Progress Notes Filed: 05/16/2021 4:17 PM [...] Qiu DATE: May 16, 2021 TIME: 4:14 PMTr[facility] [id number] History of Present illness Narrative* JOSE R [...] 2021 TIME: 4:14 PM [facility] History of Past illness Narrative* Problem Noted Date Resolved Date Abnormal US 06/01/2011 05/29/2012 Overview: Possible heart defect, small stomach bubble, bilateral choroid plexus cysts, increased risk trisomy 18- amniocentesis pending Supervision of other normal 03/28/2011 05/29/2012 documented as of this encounter (statuses as of 05/17/2021) [facility] Diagnosis Onset Date Resolution Status Paralysis of right upper extremity acute Thyroid nodule acute Tremor acute Vitamin D deficiency acute [facility] Work Phone: Evaluation note* Diagnosis Onset Date Resolution Status Paralysis of right upper extremity acute Tremor acute Vitamin D deficiency acute Thyroid nodule chronic Paralysis of right upper extremity acute Hyperlipidemia chronic Thyroid nodule chronic [facility] Work Phone: Evaluation noteNo assessment information available [facility] Work Phone: Evaluation note* Diagnosis Onset Date Resolution Status Encounter for routine gynecological examination noneactive Preventative health care acu te Screening for thyroid disorder acute Thyromegaly acute [facility] Work Phone: Evaluation note* Diagnosis Onset Date Resolution Status Admit Date Abnormal uterine bleeding acute August 08, 2024 10:37am Encounter for routine gynecological examination noneactive July 152024 10:37am [facility] Work Phone: [facility] Work Phone: Reason for referral (narrative)No reason for referral information availableRady Children'S Hospital Work Phone: Repjci for visit Narrative* Diagnostic Procedure Only (Routine) - Closed Specialty Diagnoses / Procedures Referred By Contac t Referred To Contact Radiology / RADIO [facility] Diagnoses MRI CERVICAL SPINE W/WO CONTRAST,[G83.21],[R25 .1],Ordering Physician Nica Gonzalez Procedures MRI WWO NEU1 B 300 Cande Yousif MD [address] [place] [address] Radio Mri [place] [address] [place] [address] Referral ID Status Reason Start Date Expiration Date Visits Re quested Visits Authorized [id number] Closed 04/27/2021 06/11/2021 2 2 [facility] Summary Purpose Family History No Family History Records Found Relationship Condition Age at Onset Recorded Date/T jeermy grandfather Cardiac disease Unknown grandmother Malignant neoplasm of breast Unknown mother Diabetes mellitus Unknown Disorder of thyroid Unknown father Diabetes mellitus Unknown Advance Directives No Advanced Directives Records Found Advance Directive Response Recorded Date/ Time Living Will No January 18 8:49pm Power of Research Advisor No January 18, 2019 8:49pm Documents on File Type Date 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 Advance Directive(s) 06/24/2016 7:31 PM Chief Complaint and Reason for Visit Chief Complaint Admit Date Annual (LINEN ATTENDANT) August 08, 2024 10:3 7am ABNORMAL UTERINE [...] Chief Complaint THYROID NODULE Chief Complaint Annual (LINEN ATTENDANT) Annual Reason for Visit Encounter for routin e gynecological examination Preventative health care Screening for thyroid disorder Thyromegaly Chief Complaint Admit Date Annual (LINEN ATTENDANT) August 08, 2024 10:3 7am Reason for Visit Admit Date Abnormal uterine bleeding August 08 10:37am Encounter for routine gynecological exam ination August 08, 2024 10:37am Additional Source Comments INFORMATION SOURCE (unrecogn ized section and content) DATE CREATED AUTHOR 09/13/2018 [facility] DATE CREATED AUTHOR AUTHOR'S ORGANIZ ATION 05/18/2021 [facility] DATE CREATED AUTHOR AUTHOR'S ORGANIZ ATION 12/24/2024 [facility] Goals (unrecognized section and content) Goals may [...] or prosecute any alcohol or drug abuse patient.[facility] Care Teams (unrecognized sec tion and content) Senior Accounting Specialist Relationship Specialty Start Date End Date Cande Yousif MD [address] [place] [address] PCP - General Internal Medicine 04/29/21 Team [...] Refer ring Provider Active Taylor Mendoza NP, SAL-C Attending Provider Active Team Status: Inactive Member Role Status Dates Dr. Cande Yousif MD Primary Care P [place], Attending Provider, Referring Provider Active Team Status: [...] BE BASED ON THE PRIMARY CLINICAL RECORDS. [employer] provides no warranty or guarantee of the accuracy or completeness of information in this document.
[2025-02-11 05:49] LABS: Internal QC Validated? YES +Cl - CLEAR BKGD; Pregnancy, Urine Negative Negative
[2025-02-11 06:19] LABS: Hematocrit 31.4 % (37-47); Hemoglobin 10.8 g/dL (12.0-15.0); Mean Corp Hgb Conc 34.4 g/dL (32-36); Mean Corpuscular Volume 94.0 fL (81-99); Mean Platelet Vol. 9.9 fl (6.2-12.0); Platelet Count 178 K/mm3 (150-450); RBC Distribution Width CV 12.2 % (11.6-14.6); RBC Distribution Width SD 41.7 fl (35.1-43.9); Red Blood Count 3.34 M/mm3 (4.2-5.4); White Blood Count 3.0 K/mm3 (4.4-11.0)
[2025-02-11] MEDS: Lactated Ringers 1,000 ML 40 ML IV (06:23)
[2025-02-11] MEDS: Scopolamine 1mg/72hr Patch 1 PATCH TD (06:25)
[2025-02-11 06:37] LABS: Magnesium 1.6 mg/dL (1.5-2.2)
[2025-02-11] MEDS: Magnesium 2 GM for ERAS IV (06:54)
--- NOTE | 2025-02-11 06:54 | PRE.ANES_ITS ---
ASA Classification* ASA Classification ASA Classification: 2 Assessment & Plan Anesthesia* Anesthesia Assessment Anesthesia Assessment: Discussed sedation and/or anesthesia options, risks, benefits, and alternatives with patient/parents/legal guardian/POA. Questions invited. The patient/parents/legal guardian/POA seems to understand and agrees to proceed with anesthesia plan. Reviewed the physical assessment, medical history, allergy history and patient home medications list prior to surgery/procedure/anesthetic and documented any changes. Performed airway and anesthesia risk assessments. Anesthesia Type Anesthesia Type: General History Source History Obtained from:: Patient and Chart Anesthesia Focused Assessment* Temperature: 98.2 F Pulse Rate: 93 Blood Pressure: 124/75 Respiratory Rate: 16 Pulse Ox: 100 Oxygen Delivery Method: Room Air Airway Assessment Mouth opens: >3 cm Mallampati Score: I Teeth Condition: Intact Neck Range of motion (ROM): Full ROM Labs Anesthesia Preop lab: CBC WBC, (4.4-11.0) 3.0 K/mm3 L Today, 05:45 RBC, (4.2-5.4) 3.34 M/mm3 L Today, 05:45 Hgb, (12.0-15.0) 10.8 g/dL L Today, 05:45 Hct, (37-47) 31.4 % L Today, 05:45 Plt Count, (150-450) 178 K/mm3 Today, 05:45 CHEMISTRY Potassium, (3.3-5.1) 4.0 mmol/L 08/08/24, 11:30 Sodium, (133-145) 141 mmol/L 08/08/24, 11:30 Magnesium, (1.5-2.2) 1.6 mg/dL Today, 05:45 BUN, (4-19) 9 mg/dL 08/08/24, 11:30 Creatinine, (0.70-1.20) 0.76 mg/dL 08/08/24, 11:30 Glucose, (70-99) 94 mg/dL 08/08/24, 11:30 TSH, (0.300-4.200) 2.060 uIU/mL 12/23/24, 16:40 COAG Urine Test Negative Negative Today, 05:42 Tst Clinic Negative 08/08/24, 11:32 Pre-Assessment Diagnosis/Proposed Procedure Planned Operative Procedure(s): (B) Hysterectomy,Total LAVH Bilateral Salpingectomy Anesthesia History 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 When Was Last Pacemaker Check QUESTION #4 FULL TEXT: You/Your Family Experience fever (hyperthermia) with Anesthesia Last Oral Intake Last Oral intake: Last Oral Intake NPO since 03:00 02/11/25 06:16 Meds taken in AM with sips of water? 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 Female Yes 01/28/25 11:35 HX of Motion Sickness Yes 01/28/25 11:35 HX of N/V After Surgery No 01/28/25 11:35 Non-Smoker Yes 01/28/25 11:35 Duration of Surgery greater Yes 01/28/25 11:35 than 60 minutes Number of Risk Factors 4 01/28/25 11:35 PONV Score Severe Risk 01/28/25 11:35 Height & Weight Height & Weight: Anesthesia: Height & Weight Height 5 ft 3 in 02/11/25 06:16 Weight: 74.389 kg 02/11/25 06:16 Body Mass Index (BMI) 29.0 02/11/25 06:16 Respiratory Assessment Respiratory Assessment - supervisor mold cleaning and storage: Respiratory Tract Infection Hx - supervisor mold cleaning and storage Hx Respiratory Tract Infection No 01/28/25 11:35 STOP Sleep Apnea STOP Sleep Apnea - supervisor mold cleaning and storage: STOP Sleep Apnea - supervisor mold cleaning and storage Hx Hypertension No 01/28/25 11:35 Hx Sleep Apnea No 01/28/25 11:35 CPAP BIPAP Do you snore loudly (louder No 01/28/25 11:35 than talking or can be heard Do you often feel tired/ No 01/28/25 11:35 fatigued/ sleepy during daytime? Has anyone observed you stop No 01/28/25 11:35 breathing during sleep? STOP Results Negative 01/28/25 11:35 QUESTION #5 FULL TEXT : Do you snore loudly (louder than talking or can be heard through closed doors)? 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 Specify any problems Hx of Preganancy in last 3 No 01/28/25 11:35 Months Nurse Filling Out Transfusion VCHRISTIN 01/28/25 11:35 & Questions: Date: 01/28/25 01/28/25 11:35 Time: 11:36 01/28/25 11:35 Patient unable to answer at this time (ie. confused, unrespo /Reproduction History /Reproductive History - supervisor mold cleaning and storage: /Reproductive Hx- supervisor mold cleaning and storage Hx Now No 01/28/25 11:35 Gestational Age (in weeks): EDC: Hx Hx Para Hx Section SAB No 01/29/25 13:11 Does the father of the baby or his family experience fever w Father of the baby Malignant Hypertension history comment Active Medications Active Medications: Current Medications Generic Name Dose Route Start Last Admin Trade Name Freq PRN Reason Stop Dose Admin Acetaminophen 1,000 mg 02/11/25 07:30 02/11/25 06:24 Acetaminophen 500 Mg Tablet PO 02/11/25 07:31 1,000 mg PREOP ONE Administration Celecoxib 400 mg 02/11/25 07:30 02/11/25 06:24 Celecoxib 200 Mg Capsule PO 02/11/25 07:31 400 mg PREOP ONE Administration Dexamethasone Sodium Phosphate 8 mg 02/11/25 07:30 Dexamethasone 4 Mg/Ml Vial IV 02/11/25 07:31 INTRAOP ONE Enoxaparin Sodium 40 mg 02/11/25 07:30 02/11/25 06:23 Enoxaparin 40 Mg/0.4 Ml Syringe SC 02/11/25 07:31 40 mg PREOP ONE Administration Gabapentin 600 mg 02/11/25 07:30 02/11/25 06:24 Gabapentin 600 Mg Tablet PO 02/11/25 07:31 600 mg PREOP ONE Administration Lactated Ringer's 1,000 mls @ 40 mls/hr 02/11/25 07:30 02/11/25 06:23 IV 40 mls/hr .Q25H MARGARET Administration Cefazolin Sodium 2 gm/ Sodium 110 mls @ 150 mls/hr 02/11/25 07:30 Chloride IV 02/11/25 08:13 INTRAOP ONE Magnesium Sulfate 2 gm/ 104 mls @ 208 mls/hr 02/11/25 06:50 Dextrose IV 02/11/25 07:19 PREOP ONE Insulin Human Lispro 0 unit 02/11/25 07:30 Insulin Lispro 100 Unit/Ml Insuln.Pen SC 02/11/25 18:00 Q4H PRN PRN BG >/= 180, SEE PROTOCOL Protocol Ondansetron HCl 4 mg 02/11/25 07:30 Ondansetron 4 Mg/2 Ml Vial IV 02/11/25 07:31 INTRAOP ONE Phenazopyridine HCl 190 mg 02/11/25 07:30 02/11/25 06:23 Phenazopyridine 95 Mg Tablet PO 02/11/25 07:31 190 mg PREOP ONE Administration Scopolamine HBr 1 patch 02/11/25 07:30 02/11/25 06:25 Scopolamine 1mg/72hr Patch TD 02/11/25 07:31 1 patch PREOP ONE Administration PFSH Medical History (Updated 02/11/25 @ 06:[address] Parker Luong MD) Wears contact lenses Wears glasses Alcohol use Anemia Migraine headache Gastric reflux Former smoker History of echocardiogram History of irregular heartbeat Hypercholesteremia Preventative health care Screening for thyroid disorder Paralysis of right upper extremity Vitamin D deficiency Tremor Thyroid nodule Breast pain, left Change in skin mole Hyperlipidemia Home Medications ?Medication ?Instructions ?Recorded ?Last Taken ?Type NK 01/29/25 Unknown History Allergy/AdvReac Type Severity Reaction Status Date / Time doxycycline Allergy Mild Other Verified 02/11/25 06:15 Ncvbsvo-LYG-QaO Reductase Allergy Unknown Unknown Verified 02/11/25 06:15 Inhibitor Family History Grandfather Heart disease Grandmother Breast cancer Mother Diabetes Thyroid disorder Father Diabetes Surgical History History of wisdom tooth extraction, class II edentulism H/O toe surgery H/O LEEP D&E H/O dilation and curettage Social History current occupational status: employed current occupation: [employer] Smoking Status: Former smoker alcohol intake: never substance use type: does not use caffeine: Yes what type of physical activity do you participate in: walking seatbelt use: always do you feel safe at home: Yes additional social history: [employer] Review of Systems (Anesthesia) ROS Narrative System reviewed and no additional complaints, except as documented.
[2025-02-11] MEDS: Lactated Ringers 1,000 ML 1000 ML IV (07:30)
--- NOTE | 2025-02-11 07:30 | HYST_PTH ---
PATIENT: KIERAN PETERSON LOC: [facility] U#:[id number] AGE/SX: 39/F ROOM: RE02/11/[address]: Dr. Delores García MD : 1985 BED: DIS: 02/11/2025 SPEC #: [id number] RECD: 02/11/25 11:07 STATUS: DENYS YOSHIAbilio #: [id number] KELLY: 02/11/25 07:[address]: Delores García DEPT: SURGICAL PATHOLOGY RECD BY: Fernanda Chadwick ENTERED: 02/11/25 11:52 SP TYPE: HYSTERECT OTHR DR: Dr. Cande Yousif MD Tissues: Uterus, NOS Procedures: Surgery Specimen Level V HEADER OPERATION: ERAS, total vaginal hysterectomy, bilateral salpingectomy PRE-OP DIAGNOSIS: Abnormal uterine bleeding, menstrual migraine TISSUE SUBMITTED: A. Uterus, cervix, bilateral fallopian tubes MICROSCOPIC DIAGNOSIS A. Uterus, cervix, bilateral fallopian tubes, total abdominal hysterectomy with bilateral salpingectomy: - Cervix: no specific pathologic change. - Endometrium: secretory phase with benign lower uterine segment polyp - Myometrium: no specific pathologic change. - Fallopian tubes: benign paratubal cyst MICROSCOPIC DESCRIPTION Slides are reviewed. GROSS DESCRIPTION A. Properly labeled in one container and designated as uterus, cervix, bilateral fallopian tubes, the specimen consists of an 85.8 gram, 7.6 cm (fundus to ectocervix) x 5.0 cm (cornu to cornu) x 3.6 cm (anterior to posterior) uterus with attached cervix (3.1 x 2.7 cm), and detached bilateral fimbriated fallopian tubes. ?Fallopian tube A is 1.8 x 0.5 cm. ?Fallopian tube B is 2.5 x 0.4 cm. ? The uterus is previously vertically incised, anteriorly. ?The uterine serosa is predominantly pink-greco, smooth and glistening. ?The ectocervical mucosa is pink-greco,glistening, and remarkable for a patent os. ?The uterus is bivalved to reveal a 2.5 x 2.3 cm triangular endometrial cavity lined by 0.1 cm thick pink-greco endometrium, remarkable for a 1.2 x 0.6 cm possible endometrial polyp, located inbetween the endometrial cavity and the endocervical canal. ?Upon sectioning, the polyp grossly appears to be superficial. ?The myometrium is up to 2.1 cm thick and is trabeculated. ? The serosa of fallopian tube A is greco-purple and remarkable for a 0.5 cm paratubal cyst. ?Upon sectioning, the tube has a patent lumen. ?The serosa of fallopian tube B is greco-purple and unremarkable. ?Upon sectioning, the tube has a patent lumen. ?RS 8 Cassettes: A1, anterior cervix A2, posterior cervix A3, anterior uterine wall A4-A5, posterior uterine wall, bisected A6, endometrial polyp, entirely submitted A7, fallopian tube A with paratubal cyst A8, left fallopian tube NB/[facility] 02/11/2025 CPT:33468
[2025-02-11] MEDS: Cefazolin 1 GM/5 ML Vial 2 GM IV (07:35)
[2025-02-11] MEDS: Lidocaine 1% (5 ml sdv) 5 ML Vial 10 ML IV (07:36)
[2025-02-11] MEDS: DiphenhydrAMINE 50 MG/ML Syringe 12.5 MG IV (07:38)
--- NOTE | 2025-02-11 07:46 | OP.PCM_ITS ---
Multi Select Codes Urinary/Genital Urinary/Genital CPT Codes: 43577 TVH+BS/O <250gr uterus Operative Report (Standard) Operative Information Date of Procedure: 02/11/25 Pre-Operative Diagnosis: see problem list details Post-Operative Diagnosis: same Surgery/Procedure Performed: total vaginal hysterectomy bilateral salpingectomy adjunct faculty instructor: Yes Scrubber Operator: Deanne Tobar Tasks completed by seed analysis laboratory assistant: Opening & closing and Retracting Type of Anesthesia: General RN Documented Start/Stop Times: Operation Date: 02/11/25 07:30 Case Time Into Pre-Op 02/11/25 05:39 Out of Pre-Op 02/11/25 07:24 Procedure Start Time: 07:55 Procedure Stop Time: 09:08 Select all DRAINS/GRAFTS/IMPLANTS that apply: Drains Drain details: nicole Estimated Blood Loss: 100 Specimen collected: Yes Description of specimen(s) removed: uterus tubes Description of surgery: Patient was taken to the operating room and was placed under general anesthesia was prepped and draped in normal sterile fashion in the dorsal lithotomy position. Preoperative antibiotics and SCDs and Nicole catheter was placed inside the bladder. Weighted speculum was placed in the vagina and the anterior and posterior lip of the cervix was grasped with 2 Efren clamps and circumferentially injected with dilute vasopressin. A circumferential incision was made with a scalpel and the posterior cul-de-sac was entered into sharply and a longneck speculum was placed. The anterior cul-de-sac was also dissected down and entered into sharply and the uterosacral ligaments were clamped cut and suture ligated bilaterally followed by the cardinal ligaments which were Clamped cut and suture ligated bilaterally with 0 Monocryl. The uterus serially descended and progressive bites were taken bilaterally up to the level of the utero-ovarian ligament bilaterally which was clamped transected and double ligated with 0 Monocryl suture and 0 Vicryl free tie. Bilateral fallopian tubes and ovaries were well visualized and noted be within normal limits and the bilateral fallopian tubes were transected across the base with a Dara clamp and removed and sutured with 0 Vicryl suture. Excellent hemostasis was noted. The vagina was closed with [id number] 0 Vicryl pop offs including the posterior and anterior peritoneum in the reapproximation. Excellent hemostasis was noted. All instruments removed from the vagina clear urine was noted at the end of the procedure. Surgical Findings: nl uterus tubes, and ovaries. increased pelvic vasculature Complications Complications: No
[2025-02-11] MEDS: fentaNYL 100 MCG/2 ML Ampul 150 MCG IV (08:32)
[2025-02-11] MEDS: metroNIDAZOLE 500 MG/100 ML BAG 100 MG IV ×2 (09:10)
--- NOTE | 2025-02-11 09:10 | PCM.DC ---
Discharge Instructions DC O2, CPAP, BIPAP needs Home O2 Discharge instructions: No Dressing / Incision Discharge Activity: Return to Normal Activity, May Not Drive (while taking narcotic pain medications.) and May Shower May resume sexual activity in: 6-8 weeks Dressing / Incision Call your doctor if your incision/area has: Continuous Slow Oozing, Sudden Increased Bleeding, Increased Pain/ Swelling, Increased Redness and Foul Smelling Discharge Call your doctor if you observe: Fever of 101 or Higher, Inability to urinate, Inability to have a bowel movement and Using more than 1 pad per hour Follow Up Care Please Follow Up With: Delores García MD Test Results: Test results from this visit will be discussed in further detail at your follow-up appointment, if applicable. Discharge Plan Admission Attending Provider: Delores García Primary Care Provider: Cande Yousif Instructions Print Language: Togolese Discharge Orders/Prescriptions Prescriptions: No Action NK Referrals / Follow Up: Cande Yousif MD [Primary Care Provider, Internal Medicine] Disposition Disposition (needs filled in before D/C Order can be placed): Home, Self Care
--- NOTE | 2025-02-11 09:27 | PCM.POST.ANE ---
Anesthesia: Postop Eval I Current Vital Signs Temperature: 98.3 F Pulse Rate: 96 Blood Pressure: 119/79 Respiratory Rate: 16 Pulse Ox: 99 Oxygen Delivery Method: Room Air Assessment Airway patent: Yes Spontaneous unlabored respirations: Yes Mental status: Awake and Calm nausea: No Vomiting: No Anesthesia Complication: No Fluid Hydration Crystalloid volume administer (ml): 1,000 Total IV fluid infused: 1,000 Progress Note Anesthesia document: Postop Eval 1 completed: Yes
[2025-02-11] MEDS: Ketorolac 30 MG/ML Syringe IV (10:29)
--- NOTE | 2025-02-11 12:37 | POSTOPAN2_ITS ---
Anesthesia Postop Eval I Sum Postop Eval Completion status Anesthesia document: Postop Eval 1 completed: Yes Anesthesia Postop Eval I Summary Anesthesia Postop Eval I Summary: Anesthesia Postop Eval I: Assessment Summary Airway patent Yes 02/11/25 09:28 MOTORIZED SQUAD CAPTAIN.SKOBY Spontaneous unlabored Yes 02/11/25 09:28 MOTORIZED SQUAD CAPTAIN.LATOSHA respirations Mental status Awake,Calm 02/11/25 09:28 MOTORIZED SQUAD CAPTAIN.SKOBY nausea No 02/11/25 09:28 MOTORIZED SQUAD CAPTAIN.SKOBY Vomiting No 02/11/25 09:28 MOTORIZED SQUAD CAPTAIN.SKOBEdu Anesthesia Postop Eval I: Fluid Summary Crystalloid volume administer 1,000 02/11/25 09:28 MOTORIZED SQUAD CAPTAIN.SKOBY (ml) Colloids volume administered ( ml) Blood Product volume administered (ml) Total IV fluid infused 1,000 02/11/25 09:28 MOTORIZED SQUAD CAPTAIN.SHRADDHAOBEdu Anesthesia Postop Eval I: Summary Notes Anesthesia Complication No 02/11/25 09:28 MOTORIZED SQUAD CAPTAIN.LATOSHA Anesthesia Complication Comment: Post-operative progress note Anesthesia: Postop Eval II Evaluation Mental status: Awake and Calm Pain Level: 2 nausea: No Vomiting: No Complications Anesthesia Complication: No
--- NOTE | 2025-02-11 12:37 | PCM.POSTANE2 ---
Anesthesia Postop Eval I Sum Postop Eval Completion status Anesthesia document: Postop Eval 1 completed: Yes Anesthesia Postop Eval I Summary Anesthesia Postop Eval I Summary: Anesthesia Postop Eval I: Assessment Summary Airway patent Yes 02/11/25 09:28 HI RANGER OPERATOR.SKOBY Spontaneous unlabored Yes 02/11/25 09:28 HI RANGER OPERATOR.LATOSHA respirations Mental status Awake,Calm 02/11/25 09:28 HI RANGER OPERATOR.SKOBY nausea No 02/11/25 09:28 HI RANGER OPERATOR.SKOBY Vomiting No 02/11/25 09:28 HI RANGER OPERATOR.SKOBEdu Anesthesia Postop Eval I: Fluid Summary Crystalloid volume administer 1,000 02/11/25 09:28 HI RANGER OPERATOR.SKOBY (ml) Colloids volume administered ( ml) Blood Product volume administered (ml) Total IV fluid infused 1,000 02/11/25 09:28 HI RANGER OPERATOR.SHRADDHAOBEdu Anesthesia Postop Eval I: Summary Notes Anesthesia Complication No 02/11/25 09:28 HI RANGER OPERATOR.LATOSHA Anesthesia Complication Comment: Post-operative progress note Anesthesia: Postop Eval II Evaluation Mental status: Awake and Calm Pain Level: 2 nausea: No Vomiting: No Complications Anesthesia Complication: No
[2025-02-11 13:07] LABS: Hematocrit 32.1 % (37-47); Hemoglobin 11.4 g/dL (12.0-15.0); Mean Corp Hgb Conc 35.5 g/dL (32-36); Mean Corpuscular Volume 92.8 fL (81-99); Mean Platelet Vol. 9.8 fl (6.2-12.0); Platelet Count 182 K/mm3 (150-450); RBC Distribution Width CV 12.5 % (11.6-14.6); RBC Distribution Width SD 42.4 fl (35.1-43.9); Red Blood Count 3.46 M/mm3 (4.2-5.4); White Blood Count 8.6 K/mm3 (4.4-11.0)
--- NOTE | 2025-02-11 14:15 | SUR.PHASEII ---
PATIENT UNABLE TO VOID, WAS BLADDER SCANNED FOR 720. PATIENT STATES SHE WANTS TO TRY ONE MORE TIME BEFORE I CALL THE DOCTOR.
--- NOTE | 2025-02-11 14:30 | SUR.PHASEII ---
PATIENT ABLE TO VOID
== END 2025-02-11 14:47 | disposition home or self-care (01) ==
LOC: SDC 05:23 → AC 05:27
PROVIDERS: PCP Internal Medicine; Referring Provider Obstetrics & Gynecology; Visit Provider Obstetrics & Gynecology
PROC: 0UT9FZZ Resection of Uterus, Via Natural or Artificial Opening With Percutaneous Endoscopic Assistance (ICD-10-PCS; CPT 58262; principal; 2025-02-11 07:05)
DX: N83.8 Other noninflammatory disorders of ovary, fallopian tube and broad ligament (principal); Z79.4 Long term (current) use of insulin; N93.9 Abnormal uterine and vaginal bleeding, unspecified; Z87.891 Personal history of nicotine dependence; E78.00 Pure hypercholesterolemia, unspecified; G43.109 Migraine with aura, not intractable, without status migrainosus; G43.829 Menstrual migraine, not intractable, without status migrainosus; K21.9 Gastro-esophageal reflux disease without esophagitis
CPT/HCPCS: 58262; 00944; 81025; 82962; 83735; 85027; 86850; 86900; 86901; 88307; A4216; J2405